=== PATIENT | male | born 1970 | race Caucasian/White ===

== ENCOUNTER 2017-05-12 11:47 | Emergency (ER) | payer MEDICAID ==
[2017-05-12 12:01] VITALS: BP 149/98
--- NOTE | 2017-05-12 12:51 | ED Physician Documentation ---
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 No particular fall nor injury. Awakening today,getting out of bed, felt onset of sharp left upper lumbar pain, worse with ROM and walking. At times the pain will be very sharp and cause "his legs to give out". No ongoing weakness nor numbness of legs but does feel that the pain from back goes to both anterior thighs at times. No incontinence.) Location: Lower, Left Quality: Pain, Spasm, Aching Associated symptoms: No: Fever, Weakness, Numbness, Incontinent of urine Improves with: Rest Worsened by: Movement, Twisting Contributing factors: Lifting (he had been doing lot of lifting the past few days, but no onset of pain at that time.) Similar symptoms before: No diagnosis (he has had back pains at times in similar area, but not as bad as the current pains.) Recently seen: Not recently seen Review of Systems Constitutional: denies: Fever, Chills Nose: denies: Rhinorrhea / runny nose, Congestion Throat: denies: Sore throat Cardiac: denies: Chest pain / pressure Respiratory: denies: Dyspnea, Cough GI: denies: Abdominal Pain, Nausea, Vomiting, Diarrhea : denies: Dysuria, Frequency, Incontinent Skin: denies: Rash, Lesions Musculoskeletal: denies: Extremity pain, Extremity swelling Neurologic: denies: Focal weakness, Numbness, Near syncope PD PAST MEDICAL HISTORY - Past Medical History Cardiovascular: None Respiratory: None Musculoskeletal: None - Past Surgical History Past Surgical History: No - Present Medications Home Medications: Ambulatory Orders Medication Instructions Recorded Confirmed oxyCODONE [Roxicodone] 5 mg PO Q4-6H #10 tablet 05/28/16 Methocarbamol [Robaxin] 500 mg PO Q6H PRN #25 tablet 05/12/17 Naproxen [Naprosyn] 500 mg PO BID #20 tablet 05/12/17 Oxycodone HCl/Acetaminophen 1 each PO Q6H PRN #20 tablet 05/12/17 [Percocet 5-325 mg Tablet] - Allergies Allergies/Adverse Reactions: Allergies Allergy/AdvReac Type Severity Reaction Status Date / Time No Known Drug Allergies Allergy Verified 05/28/16 10:52 - Social History Does the pt smoke?: Yes Smoking Status: Current every day smoker Does the pt drink ETOH?: Yes Does the pt have substance abuse?: Yes - Immunizations Immunizations: TDAP >10years/unknown - POLST Patient has POLST: No PD ED PE NORMAL - Vitals Vital signs reviewed: Yes - General General: Alert and oriented X 3, Well developed/nourished, Other (appears in pain with ROM of the back, guarded movement. Some smell of alchol on breath. ) - Neck Neck: Supple, no meningeal sign, No adenopathy - Cardiac Cardiac: RRR, No murmur - Respiratory Respiratory: Clear bilaterally - Abdomen Abdomen: Normal bowel sounds, Soft, Non tender, Non distended, No organomegaly - Male Male : Deferred - Rectal Rectal: Deferred - Back Back: No spinal TTP (but is tender in upper lumbar muscles to the left mostly, but some on right. No vertebral tenderness to percussion. ) - Derm Derm: Normal color, Warm and dry, No rash - Extremities Extremities: Normal ROM s pain, No edema, No calf tenderness / cord - Neuro Neuro: Alert and oriented X 3, No motor deficit, No sensory deficit, Normal speech, Other (2+ DTRs in both knees. ) - Psych Psych: No: Normal affect (somewhat loud and repetitive about his back pain "never had it this bad before".) Results - Vitals Vitals: Vital Signs - 24 hr 05/12/17 11:59 Temperature 36.6 C Heart Rate 102 H Respiratory 20 Rate Blood Pressure 149/98 H O2 Saturation 98 Oxygen O2 Source Room air - Labs Labs: Laboratory Tests 05/12/17 13:35 Urine Color YELLOW Urine Clarity CLEAR Urine pH 5.5 Ur Specific [place] 1.025 Urine Protein NEGATIVE Urine Glucose (UA) NEGATIVE Urine Ketones 15 H Urine Occult Blood NEGATIVE Urine Nitrite NEGATIVE Urine Bilirubin NEGATIVE Urine Urobilinogen 0.2 (NORMAL) Ur Leukocyte Esterase NEGATIVE Ur Microscopic Review NOT INDICATED Urine Culture Comments NOT INDICATED - Rads (name of study) KUB CT Radiology: Prelim report reviewed, EMP read contemporaneously (no stones; no acute process seen. ) PD MEDICAL DECISION MAKING - ED course Complexity details: re-evaluated patient (pain lessened only moderately with meds, but is able to move more easily and bend. ), considered differential ( history was somewhat histrionic perhaps due to intoxication, which made it a bit more difficult to really assess. He did not have fever, no skin sores, no leg weakness/numbness nor incontinence. I still felt prudent to get CT back, to distinguish from kidney stone, divertic, compression injury, etc. CT looked okay. Will go with myofascial back pain or perhaps some component of nerve impingement. He got only moderate improvement with IM/PO meds, but is moving more supple at discharge. ), d/w patient Departure - Departure Disposition: 01 Home, Self Care Clinical Impression: Strain of muscle, fascia and tendon of lower back, initial encounter Lower back pain Qualifiers: Chronicity: acute Back pain laterality: bilateral Sciatica presence: without sciatica Qualified Code(s): M54.5 - Low back pain Condition: Stable Record reviewed to determine appropriate education?: Yes Instructions: ED Low Back Pain Injury Follow-Up: Mila Macdonald, [facility] [Primary Care Provider] - Prescriptions: Naproxen [Naprosyn] 500 mg PO BID #20 tablet Oxycodone HCl/Acetaminophen [Percocet 5-325 mg Tablet] 1 each PO Q6H PRN #20 tablet PRN Reason: Pain Methocarbamol [Robaxin] 500 mg PO Q6H PRN #25 tablet PRN Reason: Spasms Comments: The CT scan does not show an other obvious cause for the pain. Presume then muscular pain with spasming and perhaps some nerve impingement. Use naproxen twice daily for the next 7-10 days. Heat and gentle stretching for the back. Methocarbamol muscle relaxant several times a day to reduce spasms. Use Tylenol or oxycodone as needed for worse pain. Recheck if not improving over the next couple of days. This could potentially take a week or so to fully improve though. Discharge Date/Time: 05/12/17 15:35
[2017-05-12] MEDS ORDERED: KETOROLAC 60 MG/2 ML VIAL IM STA (13:03)
[2017-05-12] MEDS ORDERED: HYDROcod/ACETAM 5/325 MG TABLET PO STA (13:04)
[2017-05-12] MEDS ORDERED: METHOCARBAMOL 500 MG TABLET PO STA (13:04)
[2017-05-12] MEDS ORDERED: ACETAMINOPHEN 325 MG TABLET PO STA (13:04)
[2017-05-12] MEDS ORDERED: KETOROLAC 60 MG/2 ML VIAL ONE (13:17)
[2017-05-12] MEDS ORDERED: ACETAMINOPHEN 325 MG TABLET PO ONE (13:17)
[2017-05-12] MEDS ORDERED: HYDROcod/ACETAM 5/325 MG TABLET ONE (13:17)
[2017-05-12] MEDS ORDERED: METHOCARBAMOL 500 MG TABLET PO ONE (13:17)
[2017-05-12] MEDS ORDERED: HYDROmorphone 1 MG/ML SYRINGE IM STA (13:43)
[2017-05-12 13:45] LABS: BILIRUBIN,URINE NEGATIVE (NEGATIVE); PH,URINE 5.5 PH (5.0-7.5)
[2017-05-12 13:50] LABS: UA CHARGE (STRIP ONLY) YES; UR CULTURE IF IND NOT INDICATED
[2017-05-12] MEDS ORDERED: HYDROmorphone 1 MG/ML SYRINGE ONE (14:09)
--- NOTE | 2017-05-12 15:06 | CT Preliminary Report ---
Exam: CT KUB IMPRESSION: 1. Left nephrolithiasis. 2. Moderate paraesophageal hernia. 3. Colonic diverticulosis. 4. Suspect recently passed left-sided ureteral stone given the mild left periureteral and perirenal e ti. If this patient's signs and symptoms do not lillian, then follow-up renal ultrasound is recommend ed to confirm no obstructive uropathy. [facility] SITE ID: [id number]
--- NOTE | 2017-05-12 15:13 | CT Report ---
EXAM: CT ABDOMEN AND PELVIS EXAM DATE: 05/12/2017 02:12 PM. CLINICAL HISTORY: Flank pain today, left more than right. COMPARISONS: CT abdomen and pelvis 05/28/2016. TECHNIQUE: Routine helical CT imaging was performed through the abdomen and pelvis. IV contrast: None . Enteric contrast: None. Reconstructions: Coronal and sagittal. In accordance with CT protocol optimization, one or more of the following dose reduction techniques w ere utilized for this exam: automated exposure control, adjustment of mA and/or KV based on patient s ize, or use of iterative reconstructive technique. FINDINGS: Lung Bases: Stable moderate paraesophageal hernia. Liver: Normal. No masses. Gallbladder/Bile Ducts: Unremarkable. Spleen: Normal. Pancreas: Normal. Adrenal Glands: Normal. Kidneys: Right kidney and right ureter normal. Interval enlargement of the two stones in the inferior left caliceal systems, one measuring 6 mm and the other measuring 5 mm, previously 5 and 3 mm, respectively. No left hydronephrosis. However, there is mild left perirenal and perinephric edema. Left ureter is tiny with a small amount of periuretera l edema. No calcified stones are seen in the left ureter. Peritoneal Cavity/Bowel: Diverticuli off the colon. No free fluid, free air or adenopathy. No masses or acute inflammatory process. The appendix is well visualized and normal. Pelvic Organs: Normal. No stones in the urinary bladder. The bladder and visualized pelvic organs are within normal limits. Vasculature: No aneurysms or other significant abnormality. Bones: No significant abnormality. Other: None. IMPRESSION: 1. Left nephrolithiasis. 2. Moderate paraesophageal hernia. 3. Colonic diverticulosis. 4. Suspect recently passed left-sided ureteral stone, given the mild left periureteral and perirenal edema. If this patient's signs and symptoms do not lillian, then follow-up renal ultrasound is recommen ded to confirm no obstructive uropathy. [facility] Referring Provider Line: [phone] SITE ID: [id number]
== END 2017-05-12 15:35 | disposition home or self-care (01) ==
LOC: ED 11:47
DX: S39.012A Strain of muscle, fascia and tendon of lower back, initial encounter (principal); X58.XXXA Exposure to other specified factors, initial encounter; Y93.89 Activity, other specified; F17.200 Nicotine dependence, unspecified, uncomplicated
CPT/HCPCS: 74176; 81003; 96372; 99283; 99284; A9270; J1170; 81001; 87086

== ENCOUNTER 2017-06-25 10:54 | Emergency (ER) | payer MEDICAID ==
--- NOTE | 2017-06-25 11:26 | ED Physician Documentation ---
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 He says he has back pain often but it has been worse the past few days and hurting a lot today, with stiffness and spasms. He says his legs give out at times with sharp pains, but does not have consistent nubmenss nor weakness.) Where injury occurred: Home Timing - onset: How many days ago (few) Timing - duration: Days (few) Timing - details: Gradual onset, Still present Quality: Pain, Spasm, Aching Similar symptoms before: Diagnosis (low back strain end April with treatment through the ED. He says it improved after days/week but still had pain at times , limiting the amount of log splitting he had been able to do the past 1-2 months.) Recently seen: Emergency Dept (end of April, for similar symptoms.) Review of Systems Constitutional: denies: Fever, Chills Nose: denies: Rhinorrhea / runny nose, Congestion Throat: denies: Sore throat Respiratory: denies: Cough GI: denies: Abdominal Pain, Nausea, Vomiting, Constipation, Diarrhea : denies: Dysuria, Frequency, Incontinent, Hematuria Skin: denies: Rash, Lesions Neurologic: denies: Focal weakness, Numbness PD PAST MEDICAL HISTORY - Past Medical History Past Medical History: No Cardiovascular: None Respiratory: None Musculoskeletal: None, Other (intermittent low back pain. ) - Past Surgical History Past Surgical History: Yes - Present Medications Home Medications: Ambulatory Orders Medication Instructions Recorded Confirmed Dexamethasone [Decadron] 4 mg PO DAILY #5 tablet 06/25/17 Methocarbamol [Robaxin] 500 mg PO Q6H PRN #30 tablet 06/25/17 Naproxen [Naprosyn] 500 mg PO BID PRN #20 tablet 06/25/17 Oxycodone HCl/Acetaminophen 1 each PO Q6H PRN #25 tablet 06/25/17 [Percocet 5-325 mg Tablet] - Allergies Allergies/Adverse Reactions: Allergies Allergy/AdvReac Type Severity Reaction Status Date / Time No Known Drug Allergies Allergy Verified 06/25/17 11:01 - Social History Does the pt smoke?: Yes Smoking Status: Current every day smoker Does the pt drink ETOH?: Yes Does the pt have substance abuse?: Yes - Immunizations Immunizations are current?: No Immunizations: TDAP >10years/unknown - POLST Patient has POLST: No PD ED PE NORMAL - Vitals Vital signs reviewed: Yes - General General: Alert and oriented X 3, No acute distress, Well developed/nourished - HEENT HEENT: Pharynx benign - Neck Neck: Supple, no meningeal sign, No adenopathy - Cardiac Cardiac: RRR, No murmur - Respiratory Respiratory: Clear bilaterally - Abdomen Abdomen: Normal bowel sounds, Soft, Non tender, Non distended - Back Back: No CVA TTP, Other (tender in bilateral paralumbar muscles, without rash/ sores, and no spinal tenderness. ) - Derm Derm: Normal color, Warm and dry, No rash - Extremities Extremities: No tenderness to palpate, Normal ROM s pain - Neuro Neuro: Alert and oriented X 3 (smell of alcohol on breath and seems emotional easily and very talkative but repeats questions often, seems intoxicated. ), No motor deficit, No sensory deficit, Other (2+DTRs at knees. ) Results - Vitals Vitals: Vital Signs - 24 hr 06/25/17 10:57 Temperature 36.8 C Heart Rate 115 H Respiratory 16 Rate Blood Pressure 161/111 H O2 Saturation 95 Oxygen O2 Source Room air - Labs Labs: Laboratory Tests 06/25/17 11:20 Urine Color YELLOW Urine Clarity CLEAR Urine pH 6.0 Ur Specific [place] <=1.005 Urine Protein NEGATIVE Urine Glucose (UA) NEGATIVE Urine Ketones NEGATIVE Urine Occult Blood NEGATIVE Urine Nitrite NEGATIVE Urine Bilirubin NEGATIVE Urine Urobilinogen 0.2 (NORMAL) Ur Leukocyte Esterase NEGATIVE Ur Microscopic Review NOT INDICATED Urine Culture Comments NOT INDICATED PD MEDICAL DECISION MAKING - ED course Complexity details: reviewed old records, re-evaluated patient (lessened pain after meds. Similar treatment to April 2017. Can try adding PT, but he does not have PCP. Also suggest chiropractic but he will need to see if his insurance covers it. ), considered differential, d/w patient Departure - Departure Disposition: Home, Self Care Condition: Stable Record reviewed to determine appropriate education?: Yes Instructions: ED Low Back Pain Injury Follow-Up: [facility] [Provider Group] [facility] [Provider Group] Prescriptions: Dexamethasone [Decadron] 4 mg PO DAILY #5 tablet Naproxen [Naprosyn] 500 mg PO BID PRN #20 tablet PRN Reason: Pain Oxycodone HCl/Acetaminophen [Percocet 5-325 mg Tablet] 1 each PO Q6H PRN #25 tablet PRN Reason: Pain Methocarbamol [Robaxin] 500 mg PO Q6H PRN #30 tablet PRN Reason: Spasms Comments: I would suggest anti-inflammatories naproxen and dexamethasone as prescribed. Add methocarbamol muscle relaxant to help reduce spasming and stiffness. To that add oxycodone if needed for pain. I would suggest physical treatment such as physical therapy or chiropractic. I wrote a prescription for physical therapy but sometimes they want it to be directed from her primary care provider rather than the ER. He can try the physical therapy places and see if they accepted. Otherwise chiropractic would be very helpful as well and you have to contact them independently and see if they accept her insurance. Heat and gentle stretching is good for the back as well. Try to avoid heavy lifting and vigorous use for 5-6 days. At least one of your blood pressure readings in the ER today was elevated above the normal level. If you have diagnosed high blood pressure in the past, please be sure you are taking your BP medications and eating low salt diet. If you do not have know high BP, then being high today does not mean it is a correction issue. It might be reactively high to the situation that has you here. You should follow up with your primary care to have the blood pressure checked again in the next few days/week or so to see if it is persistently high. If so, then you may need medication or changes in diet/lifestyle to treat it.
[2017-06-25 11:35] LABS: BILIRUBIN,URINE NEGATIVE (NEGATIVE)
[2017-06-25 11:37] LABS: UA CHARGE (STRIP ONLY) YES; UR CULTURE IF IND NOT INDICATED
[2017-06-25] MEDS ORDERED: METHOCARBAMOL 500 MG TABLET PO ONE (11:39)
[2017-06-25] MEDS ORDERED: NAPROXEN 250 MG TABLET PO ONE (11:40)
[2017-06-25] MEDS ORDERED: traMADol 50 MG TABLET PO ONE (11:41)
[2017-06-25] MEDS ORDERED: DEXAMETHASONE 10 MG/ML VIAL ONE ×2 (11:41→12:24)
[2017-06-25] MEDS ORDERED: HYDROmorphone 1 MG/ML CARPUJECT IM STA (12:10)
[2017-06-25] MEDS ORDERED: KETOROLAC 60 MG/2 ML VIAL IM STA (12:10)
[2017-06-25] MEDS ORDERED: DEXAMETHASONE 10 MG/ML VIAL PO STA (12:11)
[2017-06-25] MEDS ORDERED: HYDROmorphone 1 MG/ML CARPUJECT ONE (12:19)
[2017-06-25] MEDS ORDERED: KETOROLAC 60 MG/2 ML VIAL ONE (12:19)
[2017-06-25] MEDS ORDERED: CHERRY SYRUP 10 ML UDC PO ONE (12:24)
[2017-06-25 12:52] VITALS: BP 149/106
== END 2017-06-25 12:52 | disposition home or self-care (01) ==
LOC: ED 10:54
DX: M54.5 Low back pain (principal); F17.200 Nicotine dependence, unspecified, uncomplicated; R03.0 Elevated blood-pressure reading, without diagnosis of hypertension
CPT/HCPCS: 81003; 96372; 99283; A9270; J1170; 81001; 87086

== ENCOUNTER 2017-09-02 11:59 | Emergency (ER) | payer MEDICAID ==
[2017-09-02] MEDS ORDERED: TETANUS/DIPHTHERIA/PERTUSSIS 0.5 ML SYRINGE IM ONE ×2 (14:33→14:42)
--- NOTE | 2017-09-02 14:35 | ED Physician Documentation ---
PD HPI ANIMAL BITE - Stated complaint Stated Complaint: DOG BITE - Chief complaint Chief Complaint: Wound - History obtained from History obtained from: Patient - History of Present Illness Location of injury(ies): LLE Details of the event: Dog, Pet animal, Immunized, Animal can be observed. No: Animal control notified Timing - onset: How many days ago (2) Timing - duration: Days (2) Timing - details: Abrupt onset, Still present Improved by: Rest, Immobilization Worsened by: Moving, Palpating Associated symptoms: Discolored Contributing factors: No: Immunocompromised Similar symptoms before: Has not had sx before Recently seen: Not recently seen - Additional information Additional information: 46-year-old homeless male was bitten by a pit bull who is a pet of another homeless friend of his. This happened 2 days ago and the patient has extensive bruising to the area and pain. He is worried about infection and pain control. He is reluctant to call animal control. Review of Systems Constitutional: denies: Fever Respiratory: denies: Cough GI: denies: Vomiting Skin: denies: Rash Musculoskeletal: reports: Extremity pain. denies: Neck pain, Back pain Neurologic: denies: Generalized weakness, Focal weakness, Numbness PD PAST MEDICAL HISTORY - Past Medical History Past Medical History: No Cardiovascular: None Respiratory: None Musculoskeletal: None, Other - Past Surgical History Past Surgical History: Yes - Present Medications Home Medications: Ambulatory Orders Medication Instructions Recorded Confirmed Amox/Clav 875/125 [Augmentin] 1 each PO Q12H #10 tablet 09/02/17 HYDROcod/ACETAM 5/325 [[place] 5/325] 1 - 2 ea PO Q6H PRN #10 tablet 09/02/17 - Allergies Allergies/Adverse Reactions: Allergies Allergy/AdvReac Type Severity Reaction Status Date / Time No Known Drug Allergies Allergy Verified 09/02/17 12:14 - Social History Does the pt smoke?: Yes Smoking Status: Current every day smoker Does the pt drink ETOH?: Yes Does the pt have substance abuse?: Yes - Immunizations Immunizations are current?: No Immunizations: TDAP >10years/unknown - POLST Patient has POLST: No PD ED PE NORMAL - Vitals Vital signs reviewed: Yes (Hypertensive) - General General: No acute distress, Well developed/nourished - HEENT HEENT: Atraumatic, PERRL, EOMI - Respiratory Respiratory: No respiratory distress - Derm Derm: Normal color, Warm and dry - Extremities Extremities: No deformity, Other (There is an extensive area on the medial aspect of the left thigh with ecchymosis extending around a central area of puncture wound and abrasion. The area does appear consistent with a bite by a dog. There is extensive ecchymosis associated with this and it does appear to be colored to the date.) - Neuro Neuro: No motor deficit, No sensory deficit Eye Opening: Spontaneous Motor: Obeys Commands Verbal: Oriented GCS Score: 15 - Psych Psych: Normal mood, Normal affect Results - Vitals Vitals: Vital Signs - 24 hr 09/02/17 12:09 Temperature 36.6 C Heart Rate 100 Respiratory 20 Rate Blood Pressure 132/95 H O2 Saturation 96 Oxygen O2 Source Room air PD MEDICAL DECISION MAKING - ED course Complexity details: considered differential, d/w patient ED course: 46-year-old male with a dog bite to the left thigh has extensive ecchymosis from this he does not appear to have acute infection. There is some erythema surrounding the puncture wound and abrasion consistent with a three-day old wound. Here in the emergency department he is given a tetanus booster and we will put him on a short course of prophylactic antibiotic. Departure - Departure Disposition: 01 Home, Self Care Clinical Impression: Dog bite of extremity Condition: Stable Instructions: ED Bite Animal General Follow-Up: [facility] [Provider Group] Prescriptions: Amox/Clav 875/125 [Augmentin] 1 each PO Q12H #10 tablet HYDROcod/ACETAM 5/325 [[place] 5/325] 1 - 2 ea PO Q6H PRN #10 tablet PRN Reason: Pain Comments: Today in the Emergency Department your blood pressure was elevated. This can happen from the stress of the visit itself, from a current illness or circumstance or from uncontrolled hypertension. If you take blood pressure medications take your usual mediations, have your blood pressure re-checked in an appropriate setting and follow up any elevation with your primary care doctor.
[2017-09-02 15:21] VITALS: BP 122/91
== END 2017-09-02 15:15 | disposition home or self-care (01) ==
LOC: ED 11:59
DX: S71.132A Puncture wound without foreign body, left thigh, initial encounter (principal); W54.0XXA Bitten by dog, initial encounter; Z23 Encounter for immunization; R03.0 Elevated blood-pressure reading, without diagnosis of hypertension; Z59.0 Homelessness; F17.200 Nicotine dependence, unspecified, uncomplicated
CPT/HCPCS: 90471; 99283

== ENCOUNTER 2017-11-05 14:14 | Emergency (ER) | payer MEDICAID ==
[2017-11-05] MEDS ORDERED: HYDROmorphone 1 MG/ML SYRINGE IVP STA (15:13)
[2017-11-05] MEDS ORDERED: ONDANSETRON 4 MG/2 ML VIAL IVP STA (15:13)
[2017-11-05 15:15] LABS: BILIRUBIN,URINE NEGATIVE (NEGATIVE); GLUCOSE, URINE (UA) NEGATIVE (NEGATIVE); KETONES,URINE (UA) NEGATIVE (NEGATIVE); LEUKOCYTE ESTERASE, URINE NEGATIVE (NEGATIVE); NITRITE,URINE NEGATIVE (NEGATIVE); OCCULT BLOOD,URINE NEGATIVE (NEGATIVE); PH,URINE 5.5 PH (5.0-7.5); PROTEIN,URINE NEGATIVE (NEGATIVE); UROBILINOGEN,URINE 0.2 (NORMAL) E.U./dL (NORMAL)
--- NOTE | 2017-11-05 15:15 | ED Physician Documentation ---
PD HPI ABD PAIN - Stated complaint Stated Complaint: ABD PX - Chief complaint Chief Complaint: Abd Pain - History obtained from History obtained from: Patient - History of Present Illness Timing - onset: Other (He has a history of alcoholism but quit about 2 weeks ago. He also has a history of pancreatitis. He developed sudden onset upper abdominal pain today. He has not had a bowel movement today which is atypical. No history of abdominal surgeries. Pain is severe and nonradiating. No fevers or nausea.) Review of Systems Ten Systems: 10 systems reviewed and negative Constitutional: denies: Fever, Chills Cardiac: denies: Chest pain / pressure, Palpitations Respiratory: denies: Dyspnea, Cough PD PAST MEDICAL HISTORY - Past Medical History Past Medical History: Yes Cardiovascular: None Respiratory: None Musculoskeletal: None, Other - Past Surgical History Past Surgical History: Yes - Present Medications Home Medications: Ambulatory Orders Medication Instructions Recorded Confirmed HYDROcod/ACETAM 5/325 [[place] 5/325] 1 - 2 ea PO Q6H PRN #15 tablet 11/05/17 Omeprazole [PriLOSEC] 20 mg PO DAILY #14 capsule 11/05/17 - Allergies Allergies/Adverse Reactions: Allergies Allergy/AdvReac Type Severity Reaction Status Date / Time No Known Drug Allergies Allergy Verified 09/02/17 12:14 - Social History Does the pt smoke?: Yes Smoking Status: Current every day smoker Does the pt drink ETOH?: Yes Does the pt have substance abuse?: Yes - Family History Family history: reports: Non contributory - Immunizations Immunizations are current?: No Immunizations: TDAP >10years/unknown - POLST Patient has POLST: No PD ED PE NORMAL - Vitals Vital signs reviewed: Yes - General General: Alert and oriented X 3, Other (Clutching his abdomen and appears uncomfortable) - HEENT HEENT: PERRL, EOMI - Neck Neck: Supple, no meningeal sign, No bony TTP - Cardiac Cardiac: RRR, No murmur - Respiratory Respiratory: No respiratory distress, Clear bilaterally - Abdomen Abdomen: Other (Quite tender in the right upper quadrant with positive Rios sign, no lower abdominal tenderness.) - Back Back: No CVA TTP, No spinal TTP - Derm Derm: Normal color, Warm and dry - Extremities Extremities: No edema, No calf tenderness / cord - Neuro Neuro: Alert and oriented X 3, Normal speech - Psych Psych: Normal mood, Normal affect Results - Vitals Vitals: Vital Signs - 24 hr 11/05/17 14:38 Temperature 36.7 C Heart Rate 109 H Respiratory 18 Rate Blood Pressure 147/79 H O2 Saturation 99 Oxygen O2 Source Room air - Labs Labs: Laboratory Tests 11/05/17 11/05/17 11/05/17 15:01 15:01 15:10 WBC 21.5 H RBC 4.74 Hgb 15.4 Hct 46.2 MCV 97.5 H MCH 32.5 H MCHC 33.4 RDW 13.3 Plt Count 357 MPV 7.7 Neut # 20.1 H Lymph # 0.5 L Pepin # 0.8 Eos # 0.0 Baso # 0.1 Absolute Nucleated RBC 0.02 Nucleated RBC % 0.1 Manual Slide Review Indicated WBC Morphology A Platelet Estimate NORMAL (130-450,000) Platelet Morphology NORMAL APPEARANCE RBC Morph Micro Appear NORMAL APPEARANCE Sodium 135 Potassium 4.0 Chloride 106 Carbon Dioxide 20 L Anion Gap 9.0 BUN 13 Creatinine 0.7 Estimated GFR (MDRD) 121 Glucose 131 H Calcium 9.3 Total Bilirubin 0.7 AST 28 ALT 30 Alkaline Phosphatase 54 Total Protein 8.0 Albumin 4.7 Globulin 3.3 Albumin/Globulin Ratio 1.4 Lipase 20 L Urine Color YELLOW Urine Clarity CLEAR Urine pH 5.5 Ur Specific [place] >=1.030 H Urine Protein NEGATIVE Urine Glucose (UA) NEGATIVE Urine Ketones NEGATIVE Urine Occult Blood NEGATIVE Urine Nitrite NEGATIVE Urine Bilirubin NEGATIVE Urine Urobilinogen 0.2 (NORMAL) Ur Leukocyte Esterase NEGATIVE Ur Microscopic Review NOT INDICATED Urine Culture Comments NOT INDICATED - Rads (name of study) RUQ sono Radiology: EMP read contemporaneously (No obvious abnormality but with limitation due to bowel gas) CT abdomen and pelvis Radiology: EMP read contemporaneously (Nonobstructing left renal stones, diverticulosis, trace pelvic fluid, hiatal hernia) PD MEDICAL DECISION MAKING - ED course ED course: He presents with acute acute upper abdominal pain that seemed biliary in origin on exam. His ultrasound was nondiagnostic, this was followed by CT especially considering his leukocytosis. The CT was grossly negative. He was administered a GI cocktail with excellent relief of his pain. So this suggests gastritis. Departure - Departure Disposition: 01 Home, Self Care Clinical Impression: Gastritis Qualifiers: Gastritis type: unspecified gastritis Chronicity: acute Gastritis bleeding: without bleeding Qualified Code(s): K29.00 - Acute gastritis without bleeding Condition: Good Record reviewed to determine appropriate education?: Yes Instructions: ED PUD Vs Gastritis Prescriptions: HYDROcod/ACETAM 5/325 [[place] 5/325] 1 - 2 ea PO Q6H PRN #15 tablet PRN Reason: Pain Omeprazole [PriLOSEC] 20 mg PO DAILY #14 capsule Comments: Return tomorrow morning at 5am if not better. Followup with your doctor, next available appt. Your blood pressure was elevated today on check into the emergency department. This does not mean that you have hypertension, it is a common phenomenon to come to the emergency department and have elevated blood pressure. I recommend that you see your primary care physician within the week to have it rechecked when you are feeling better.
[2017-11-05 15:18] LABS: CLARITY,URINE CLEAR (CLEAR)
[2017-11-05 15:30] LABS: BASOPHILS # (AUTO) 0.1 10^3/uL (0.0-0.1); BASOPHILS % (AUTO) 0.3 %; EOSINOPHILS % (AUTO) 0.2 %; HGB - HEMOGLOBIN 15.4 g/dL (14.0-18.0); LYMPHOCYTES # (AUTO) 0.5 10^3/uL (1.5-3.5); LYMPHOCYTES % (AUTO) 2.4 %; MEAN CORPUSCULAR HEMOGLOBIN 32.5 pg (27.0-31.0); MEAN CORPUSCULAR HGB CONC 33.4 g/dL (32.0-36.0); MEAN CORPUSCULAR VOLUME 97.5 fL (80.0-94.0); MEAN PLATELET VOLUME 7.7 fL (7.4-11.4); MONOCYTES # (AUTO) 0.8 10^3/uL (0.0-1.0); MONOCYTES % (AUTO) 3.7 %; NEUTROPHILS # (AUTO) 20.1 10^3/uL (1.5-6.6); NEUTROPHILS % (AUTO) 93.4 %; PLT - PLATELET COUNT 357 10^3/uL (130-450); RED BLOOD COUNT 4.74 10^6/uL (4.70-6.10); RED CELL DISTRIBUTION WIDTH 13.3 % (12.0-15.0); WHITE BLOOD COUNT 21.5 x10^3/uL (4.8-10.8)
[2017-11-05 15:32] LABS: ALBUMIN 4.7 g/dL (3.2-5.5); ALBUMIN/GLOBULIN RATIO 1.4 (1.0-2.2); BILIRUBIN,TOTAL 0.7 mg/dL (0.2-1.0); CALCIUM 9.3 mg/dL (8.5-10.3); CREATININE 0.7 mg/dL (0.6-1.2)
[2017-11-05 16:42] LABS: PLATELET ESTIMATE, MANUAL NORMAL (130-450,000) (NORMAL); PLATELET MORPHOLOGY NORMAL APPEARANCE (NORMAL); RBC MORPHOLOGY (MULTIPLE) NORMAL APPEARANCE (NORMAL)
--- NOTE | 2017-11-05 16:43 | Ultrasound Preliminary Report ---
Exam: US ABDOMEN LIMITED IMPRESSION: 1. No cholelithiasis or cholecystitis. No acute findings are seen. Limited as above. [facility] SITE ID: [id number]
--- NOTE | 2017-11-05 16:43 | Ultrasound Report ---
EXAM: ABDOMEN ULTRASOUND LIMITED, RUQ EXAM DATE: 11/05/2017 03:37 PM. CLINICAL HISTORY: Right upper quadrant pain. Alcohol. COMPARISON: None. TECHNIQUE: Real-time scanning was performed with static images obtained. FINDINGS: Liver: Liver echotexture appears within normal limits. 18.5 cm. Main portal vein flow: Hepatopetal. Gallbladder: Normal. No stones, or wall thickening. No pericholecystic fluid. Wall thickness measures 2.6 mm. The gallbladder is tender. Biliary System: Common duct measures 4.6 mm. No intrahepatic or extrahepatic ductal dilatation. Other: Right kidney measures 12.5 cm in length, no hydronephrosis. Patient is in extreme pain. Hyperventilated through entire exam, unable to hold inspirations. No tole hernan of probe pressure midline. Pancreas not seen due to overlying bowel gas. IMPRESSION: 1. No cholelithiasis or cholecystitis. No acute findings are seen. Limited as above. [facility] Referring Provider Line: [phone] SITE ID: [id number]
[2017-11-05] MEDS ORDERED: IOPAMIDOL-300 100 ML VIAL ONE (16:51)
[2017-11-05] MEDS ORDERED: IOPAMIDOL-300 100 ML VIAL IVP ONE (17:02)
--- NOTE | 2017-11-05 17:35 | CT Report ---
EXAM: CT ABDOMEN AND PELVIS EXAM DATE: 11/05/2017 05:04 PM. CLINICAL HISTORY: Upper abdominal pain COMPARISONS: 05/12/2017 CT. TECHNIQUE: Routine helical CT imaging was performed through the abdomen and pelvis. IV contrast: 100M L ISOVUE 300. Enteric contrast: No. Reconstructions: Coronal and sagittal. In accordance with CT protocol optimization, one or more of the following dose reduction techniques w ere utilized for this exam: automated exposure control, adjustment of mA and/or KV based on patient s ize, or use of iterative reconstructive technique. FINDINGS: Lung Bases: The visualized lung bases are clear. There is a moderate hiatal hernia. Liver: Normal. No masses. Gallbladder/Bile Ducts: Unremarkable. Spleen: Normal. Pancreas: Normal. Adrenal Glands: Normal. Kidneys: 5 and 3 mm nonobstructing calyceal stones at the lower pole of the left kidney. The right ki dney is normal. Peritoneal Cavity/Bowel: Normal. No free fluid, free air or adenopathy. No masses or acute inflammato ry process. Diverticulosis without diverticulitis. Pelvic Organs: Trace pelvic fluid. No pelvic mass or lymphadenopathy. Urinary bladder is unremarkable . Vasculature: No aneurysms or other significant abnormality. Bones: No significant abnormality. Other: None. IMPRESSION: 1. Nonobstructing left intrarenal stones. 2. Diverticulosis without diverticulitis or other acute inflammatory process. 3. Trace pelvic fluid the clinical significance and etiology of which is uncertain. 4. Hiatal hernia. [facility] Referring Provider Line: [phone] SITE ID: [id number]
[2017-11-05] MEDS ORDERED: LIDOCAINE VISCOUS 2% 15 ML UDC MM STA (17:47)
[2017-11-05] MEDS ORDERED: MAG HYDROX/AL HYDROX/SIMETH 30 ML UDC PO STA (17:47)
[2017-11-05] MEDS ORDERED: PANTOPRAZOLE 40 MG VIAL IVP STA (18:12)
[2017-11-05 18:51] VITALS: BP 121/87
== END 2017-11-05 18:54 | disposition home or self-care (01) ==
LOC: ED 14:14
DX: K29.00 Acute gastritis without bleeding (principal); N20.0 Calculus of kidney; K44.9 Diaphragmatic hernia without obstruction or gangrene; R03.0 Elevated blood-pressure reading, without diagnosis of hypertension; F17.200 Nicotine dependence, unspecified, uncomplicated; F10.21 Alcohol dependence, in remission
CPT/HCPCS: 36415; 74177; 76705; 80053; 81003; 83690; 85025; 96374; 96375; 99283; A9270; J1170; Q9967; 81001; 87086

== ENCOUNTER 2017-12-29 14:21 | Outpatient (CLI) | payer MEDICAID ==
--- NOTE | 2017-12-30 09:44 | XRAY Report ---
LUMBAR SPINE: 12/29/2017 COMPARISON: No comparison. INDICATION: Low back pain. TECHNIQUE: Three views. FINDINGS: Normal alignment. No evidence of acute fracture. No degenerative changes. IMPRESSION: NEGATIVE LUMBAR SPINE. TD: 12/30/2017 09:44 WHITLEY
== END 2017-12-29 14:22 | disposition home or self-care (01) ==
LOC: DI.N 14:21
PROVIDERS: ATTEND Nurse Practitioner
DX: M54.40 Lumbago with sciatica, unspecified side (principal)
CPT/HCPCS: 72100

== ENCOUNTER 2018-02-03 07:40 | Outpatient (CLI) | payer MEDICAID ==
--- NOTE | 2018-02-03 13:39 | MRI Report ---
EXAM: MRI LUMBAR SPINE WITHOUT CONTRAST EXAM DATE: 02/03/2018 08:11 AM. CLINICAL HISTORY: Lower back pain. COMPARISON: Radiographs 12/29/2017. TECHNIQUE: Multiplanar, multisequence T1-weighted and fluid-sensitive sequences of the lumbar spine f rom T12 to S1 without contrast. Other: None. FINDINGS: Spinal Cord: The conus terminates at L2. The conus medullaris and cauda equina are unremarkable. Alignment: No scoliosis or spondylolisthesis. Bone Marrow: Small amount of diskogenic endplate edema at L5-S1. Marrow signal otherwise within pretty l limits. No fractures are identified. No destructive Lesions. Disk Levels/Facets: T12-L1: Minimal disk bulge. No stenosis. L1-L2: Unremarkable. L2-L3: Mild disk dehydration. Annular disk bulge and mild degenerative facet arthropathy. Small broad -based foraminal protrusions without significant stenosis. L3-L4: Mild disk dehydration. Annular disk bulge. Mild degenerative facet arthropathy. Mild effacemen t of the thecal sac. Mild right foraminal stenosis. L4-L5: Disk dehydration. Annular disk bulge and moderate degenerative facet arthropathy with ligament um flavum buckling. Mild effacement of thecal sac. Mild right greater than left foraminal narrowing. L5-S1: Disk height loss and dehydration. Annular disk bulge, annular fissure and mild to moderate deg enerative facet arthropathy. Moderate right greater than left foraminal stenosis. Musculature: Normal. No edema or fatty atrophy. Other: The partially visualized retroperitoneum is unremarkable. IMPRESSION: 1. L5-S1 moderate right greater than left foraminal stenosis. 2. L4-L5 mild right greater than left foraminal narrowing. 3. L3-L4 mild right foraminal stenosis. Comment: The following findings are so common in adults without low back pain that while we report th eir presence, they must be interpreted with caution and in the context of the clinical situation. (Re riri Christianson et al, Spine 2001) Prevalence of findings in patients without low back pain: Disk degeneration (any evidence): 92% Disk desiccation/T2 signal loss: 83% Disk height loss: 56% Disk bulge: 64% Disk protrusion: 32% Annular tear/high intensity zone: 38% [facility] Referring Provider Line: [phone] SITE ID: [id number]
== END 2018-02-03 07:41 | disposition home or self-care (01) ==
LOC: DI 07:40
PROVIDERS: ATTEND Nurse Practitioner Gerontology
DX: M51.36 Other intervertebral disc degeneration, lumbar region (principal); M47.896 Other spondylosis, lumbar region; M51.37 Other intervertebral disc degeneration, lumbosacral region; M47.897 Other spondylosis, lumbosacral region
CPT/HCPCS: 72148

== ENCOUNTER 2018-11-02 08:45 | Outpatient (CLI) | payer MEDICAID ==
[2018-11-02 12:42] LABS: BASOPHILS # (AUTO) 0.1 10^3/uL (0.0-0.1); BASOPHILS % (AUTO) 1.6 %; EOSINOPHILS # (AUTO) 0.3 10^3/uL (0.0-0.7); EOSINOPHILS % (AUTO) 5.6 %; HGB - HEMOGLOBIN 15.5 g/dL (14.0-18.0); MEAN CORPUSCULAR HEMOGLOBIN 33.2 pg (27.0-31.0); MEAN CORPUSCULAR HGB CONC 34.7 g/dL (32.0-36.0); MEAN CORPUSCULAR VOLUME 95.7 fL (80.0-94.0); MEAN PLATELET VOLUME 8.4 fL (7.4-11.4); MONOCYTES # (AUTO) 0.5 10^3/uL (0.0-1.0); MONOCYTES % (AUTO) 9.4 %; NEUTROPHILS # (AUTO) 3.8 10^3/uL (1.5-6.6); NEUTROPHILS % (AUTO) 65.4 %; PLT - PLATELET COUNT 277 10^3/uL (130-450); RED BLOOD COUNT 4.68 10^6/uL (4.70-6.10); RED CELL DISTRIBUTION WIDTH 13.1 % (12.0-15.0); WHITE BLOOD COUNT 5.8 x10^3/uL (4.8-10.8)
[2018-11-02 13:55] LABS: ALBUMIN 4.2 g/dL (3.2-5.5); ALBUMIN/GLOBULIN RATIO 1.4 (1.0-2.2); ALKALINE PHOSPHATASE 63 IU/L (42-121); ALT ALANINE AMINOTRANSFERASE 14 IU/L (10-60); AST ASPARTATE AMINOTRANSFERASE 20 IU/L (10-42); BILIRUBIN,TOTAL 0.9 mg/dL (0.2-1.0); BUN - BLOOD UREA NITROGEN 9 mg/dL (6-20); CALCIUM 9.4 mg/dL (8.5-10.3); CARBON DIOXIDE - CO2 23 mmol/L (21-32); CHLORIDE 105 mmol/L (101-111); CHOL/HDL RATIO 4.3 (<5.0); CHOLESTEROL 217 mg/dL; CREATININE 0.6 mg/dL (0.6-1.2); GFR - MDRD 144 (>89); GLUCOSE 101 mg/dL (70-100); HDL CHOLESTEROL 50 mg/dL; LDL CHOLESTEROL,CALCULATED 146 mg/dL; LDL/HDL RATIO 2.9 (<3.6); SODIUM 135 mmol/L (135-145); TOTAL PROTEIN 7.1 g/dL (6.7-8.2); VLDL CHOLESTEROL 21 mg/dL
== END 2018-11-02 23:59 | disposition home or self-care (01) ==
LOC: LAB.N 08:45
PROVIDERS: ATTEND Nurse Practitioner Gerontology
DX: I10 Essential (primary) hypertension (principal); F10.10 Alcohol abuse, uncomplicated; Z13.9 Encounter for screening, unspecified
CPT/HCPCS: 36415; 80053; 80061; 83721; 84443; 85025

== ENCOUNTER 2019-01-04 09:00 | Outpatient (CLI) | payer MEDICAID ==
[2019-01-05 13:46] LABS: HEPATITIS C ANTIBODY NON-REACTIVE (NON-REACTIVE)
[2019-01-05 16:13] LABS: HIV AG/AB 4TH GEN NON-REACTIVE (NON-REACTIVE)
== END 2019-01-04 23:59 ==
LOC: LAB.N 09:00
PROVIDERS: ATTEND Nurse Practitioner Gerontology
DX: Z11.3 Encounter for screening for infections with a predominantly sexual mode of transmission (principal)
CPT/HCPCS: 36415; 86803; 87389

== ENCOUNTER 2019-08-09 13:43 | Outpatient (CLI) | payer MEDICAID | END 2019-08-09 23:59 | disposition home or self-care (01) | LOC: LAB.N 13:43 | PROVIDERS: ATTEND Nurse Practitioner Gerontology | DX: R35.0 Frequency of micturition (principal) | CPT/HCPCS: 36415; 84153 ==

== ENCOUNTER 2020-03-07 08:00 | Outpatient (CLI) | payer MEDICAID ==
[2020-03-07 17:50] LABS: BASOPHILS # (AUTO) 0.1 10^3/uL (0.0-0.1); BASOPHILS % (AUTO) 0.8 %; EOSINOPHILS # (AUTO) 0.3 10^3/uL (0.0-0.7); EOSINOPHILS % (AUTO) 4.2 %; HGB - HEMOGLOBIN 14.3 g/dL (14.0-18.0); LYMPHOCYTES # (AUTO) 1.3 10^3/uL (1.5-3.5); LYMPHOCYTES % (AUTO) 20.5 %; MEAN CORPUSCULAR HGB CONC 33.1 g/dL (32.0-36.0); MEAN CORPUSCULAR VOLUME 96.6 fL (80.0-94.0); MEAN PLATELET VOLUME 9.3 fL (7.4-11.4); MONOCYTES # (AUTO) 0.8 10^3/uL (0.0-1.0); MONOCYTES % (AUTO) 12.3 %; NEUTROPHILS # (AUTO) 3.8 10^3/uL (1.5-6.6); NEUTROPHILS % (AUTO) 61.4 %; PLT - PLATELET COUNT 300 10^3/uL (130-450); RED BLOOD COUNT 4.47 10^6/uL (4.70-6.10); RED CELL DISTRIBUTION WIDTH 14.2 % (12.0-15.0); WHITE BLOOD COUNT 6.2 x10^3/uL (4.8-10.8)
[2020-03-07 17:57] LABS: ALBUMIN 4.5 g/dL (3.2-5.5); ALBUMIN/GLOBULIN RATIO 1.4 (1.0-2.2); CALCIUM 9.3 mg/dL (8.5-10.3); CREATININE 0.7 mg/dL (0.6-1.2); TOTAL PROTEIN 7.8 g/dL (6.7-8.2)
== END 2020-03-07 23:59 | disposition home or self-care (01) ==
LOC: LAB.WCP 08:00
PROVIDERS: ATTEND Family Medicine
DX: I10 Essential (primary) hypertension (principal)
CPT/HCPCS: 36415; 80053; 80061; 83721; 85025

== ENCOUNTER 2020-03-18 08:00 | Outpatient (CLI) | payer MEDICAID ==
--- NOTE | 2020-03-18 14:10 | Ultrasound Report ---
Reason: ABNORMAL LIVER FUNCTION TEST Procedure Date: 03/18/2020 Accession Number: [id number] / [id number] Procedure: US - Abdomen Limited CPT Code: Final Report FULL RESULT: EXAM: ABDOMEN ULTRASOUND LIMITED, RUQ EXAM DATE: 03/18/2020 08:36 AM. CLINICAL HISTORY: ABNORMAL LIVER FUNCTION TEST. COMPARISON: ABDOMEN LIMITED 11/05/2017 3:36 PM ABDOMEN/PELVIS W/ 11/05/2017 4:59 PM. TECHNIQUE: Real-time scanning was performed with static images obtained. FINDINGS: Liver: Normal in size. Echogenic parenchyma with mildly heterogeneous echotexture. 15.3 cm. Main portal vein flow: Hepatopetal. Gallbladder: Normal. No stones, wall thickening, or sonographic Rios's sign. Biliary System: CBD measures 4 mm. No intrahepatic or extrahepatic ductal dilatation. Other: The right kidney is unremarkable without hydronephrosis. The visualized portion of the pancreas is unremarkable. IMPRESSION: Hepatic steatosis versus other hepatocellular disease. [facility]
== END 2020-03-18 08:01 | disposition home or self-care (01) ==
LOC: DI 08:00
PROVIDERS: ATTEND Family Medicine
DX: R94.5 Abnormal results of liver function studies (principal)
CPT/HCPCS: 76705

== ENCOUNTER 2020-08-03 06:12 | Outpatient (CLI) | payer MEDICAID ==
--- NOTE | 2020-08-03 08:52 | XRAY Report ---
PROCEDURE: Knee View LT INDICATIONS: Left knee pain TECHNIQUE: 2 views of the left knee(s) were acquired. COMPARISON: None. FINDINGS: Bones: No fractures or dislocations. No suspicious bony lesions. Soft tissues: No joint effusion. No suspicious soft tissue calcifications. IMPRESSION: Left knee without radiographic abnormalities. Reviewed by: Duy Villegas MD on 08/03/2020 8:51 AM PDT Approved by: Duy Villegas MD on 08/03/2020 8:51 AM PDT Station ID: [id number]
== END 2020-08-03 06:13 | disposition home or self-care (01) ==
LOC: DI 06:12
PROVIDERS: ATTEND Family Medicine
DX: M25.562 Pain in left knee (principal)

== ENCOUNTER 2020-10-26 06:08 | Emergency (ER) | payer MEDICAID ==
--- NOTE | 2020-10-26 06:28 | ED Physician Documentation ---
PD HPI BACK PAIN - Stated complaint Stated Complaint: BACK PX - Chief complaint Chief Complaint: Back Pain - History obtained from History obtained from: Patient - History of Present Illness Timing - onset: How many days ago (few), Chronic (has chronic low back pain for years, worse few days ago when carrying wood in for his parents woodstove. Hurting worse with stiffness. He says drinking alcohol regularly instead of pain meds for the back. Would like to stop drinking for pain, but does not like to take narcotics.) Timing - details: Gradual onset Location: Lower, Left (radiating down back of left leg.) Quality: Pain, Spasm Associated symptoms: No: Weakness, Numbness, Incontinent of urine Worsened by: Movement, Twisting Contributing factors: Lifting. No: Trauma Similar symptoms before: Diagnosis (prior MRI few years ago showing some disc disease and spondylo.) Recently seen: Clinic (seen PMD [place] and Rx elavil for pain. NO improvement.) Review of Systems Constitutional: denies: Fever, Chills Nose: denies: Rhinorrhea / runny nose, Congestion Throat: denies: Sore throat Respiratory: denies: Cough GI: denies: Abdominal Pain, Nausea, Vomiting : denies: Incontinent Skin: denies: Rash, Lesions Neurologic: denies: Focal weakness, Numbness PD PAST MEDICAL HISTORY - Past Medical History Past Medical History: Yes Cardiovascular: None Respiratory: None Psych: Other Musculoskeletal: None, Chronic back pain, Other Other Past Medical History: Alcoholism - Past Surgical History Past Surgical History: Yes - Present Medications Home Medications: Ambulatory Orders Medication Instructions Recorded Confirmed HYDROcod/ACETAM 5/325 [[place] 5/325] 1 - 2 ea PO Q6H PRN #15 tablet 11/05/17 10/26/20 Omeprazole [PriLOSEC] 20 mg PO DAILY #14 capsule 11/05/17 10/26/20 Acetaminophen [Tylenol] 650 mg PO TID #90 tab 10/26/20 Amitriptyline [Elavil] 25 mg PO QPM 10/26/20 10/26/20 Naproxen Sodium [Anaprox Ds] 550 mg PO BID #20 tablet 10/26/20 dexAMETHasone [Decadron] 4 mg PO DAILY #5 tablet 10/26/20 tiZANidine [Zanaflex] 4 mg PO Q8H PRN #25 tablet 10/26/20 - Allergies Allergies/Adverse Reactions: Allergies Allergy/AdvReac Type Severity Reaction Status Date / Time No Known Drug Allergies Allergy Verified 10/26/20 06:18 - Social History Does the pt smoke?: Yes Smoking Status: Current every day smoker Does the pt drink ETOH?: Yes Does the pt have substance abuse?: Yes Substance Use and Type: Other - Immunizations Immunizations are current?: No Immunizations: TDAP >10years/unknown - POLST Patient has POLST: No PD ED PE NORMAL - Vitals Vital signs reviewed: Yes - General General: Alert and oriented X 3, Well developed/nourished, Other (guarded ROM of the low back. some mild slurring of speech c/w some intoxication. ) - Neck Neck: Supple, no meningeal sign, No adenopathy - Cardiac Cardiac: RRR, No murmur - Respiratory Respiratory: Clear bilaterally - Abdomen Abdomen: Soft, Non tender - Back Back: No CVA TTP, No spinal TTP (tender really left lower back without point trigger, redness, rash. ) - Derm Derm: Normal color, Warm and dry, No rash - Extremities Extremities: Normal ROM s pain, No edema, No calf tenderness / cord - Neuro Neuro: Alert and oriented X 3, No motor deficit, No sensory deficit, Other (normal knee reflexes.) Results - Vitals Vitals: Vital Signs - 24 hr 10/26/20 10/26/20 06:15 07:40 Temperature 36.3 C L Heart Rate 106 H 92 Respiratory 18 16 Rate Blood Pressure 149/103 H 138/95 H O2 Saturation 96 97 Oxygen O2 Source Room air PD MEDICAL DECISION MAKING - ED course Complexity details: reviewed old records (lumbar MRI from few years ago), considered differential (low back pain with sciatic pain. No LE weakness/numbness. He does not want narcotics Rx. Encouraged him to not use al cohol as pain medication.), d/w patient Departure - Departure Disposition: 01 Home, Self Care Clinical Impression: Alcoholism, Acute exacerbation of chronic low back pain Condition: Stable Record reviewed to determine appropriate education?: Yes Instructions: ED Sciatica Follow-Up: Tonny Xie DO [Primary Care Provider] - Prescriptions: Naproxen Sodium [Anaprox Ds] 550 mg PO BID #20 tablet dexAMETHasone [Decadron] 4 mg PO DAILY #5 tablet Acetaminophen [Tylenol] 650 mg PO TID #90 tab tiZANidine [Zanaflex] 4 mg PO Q8H PRN #25 tablet PRN Reason: Spasms Comments: Continue to diminish alcohol use for treatment of your back pain. Seek help through your primary care or alcohol treatment programs to help with this. For your back pain, I understand that you would like to not be prescribed opiates/narcotics. Those would not be used for the long-term anyway. Sometimes they are useful in the short-term. Otherwise we use a combination of anti-inflammatories and muscle relaxants and medications to help with the nerve irritation. And then adding basic pain medicine. Continue the amitriptyline prescribed by your primary care. In the short-term add Decadron steroid for inflammation in the discs and muscles. Also tizanidine muscle relaxant for spasms and stiffness. To that add Tylenol three times a day regularly for the next several weeks or so. To that add naproxen twice daily if needed for pain. Follow-up with your primary care for possible physical therapy or other treatment modalities. Discharge Date/Time: 10/26/20 07:40
[2020-10-26] MEDS ORDERED: methocarbamoL 500 MG TABLET PO STA (06:46)
[2020-10-26] MEDS ORDERED: ACETAMINOPHEN 325 MG TABLET PO STA (06:46)
[2020-10-26] MEDS ORDERED: CHERRY SYRUP 10 ML UDC PO ONE (06:46)
[2020-10-26] MEDS ORDERED: DEXAMETHASONE 10 MG/ML VIAL PO STA (06:46)
[2020-10-26] MEDS ORDERED: KETOROLAC 30 MG/ML VIAL IM STA (06:46)
[2020-10-26 08:19] VITALS: BP 138/95
--- OUTSIDE RECORDS SUMMARY | 2020-11-01 00:58 | EXTERNAL MEDICAL SUMMARY RPT | Continuity of Care Document ---
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 Unavailable Unavailable DO Unavailable Unavailable GAYTAN Unavailable Unavailable Scheidt Unavailable Unavailable Problems date description facility 2020-08-03 00:00 [facility] [place] 2020-08-03 06:12 [facility] [place] 2020-09-08 00:00:00 [facility] 2020-09-08 00:00:00 [facility] 2020-09-08 00:00:00 [facility] 2020-09-08 00:00:00 Current [facility] 2020-09-08 00:00:00 Tobacco use and exposure [facility] 2020-09-08 00:00:00 [facility] of drug misuse [facility] 2020-09-08 00:00:00 Tobacco smoking status NHIS [facility] 2020-09-21 00:00:00 XR LUMBAR SPINE 2 OR 3 VIEW [facility] 2020-10-25 00:00:00 [facility] 2020-10-25 00:00:00 [facility] 2020-10-25 00:00:00 [facility] 2020-10-25 00:00:00 Current [facility] 2020-10-25 00:00:00 Tobacco use and exposure [facility] 2020-10-25 00:00:00 Details of drug misuse [facility] [place] [facility] 2020-10-25 00:00:00 Tobacco smoking status NHIS [facility] [place] [facility] 2020-10-27 00:00:00 Other and unspecified alcohol [facility] dependence, unspecified drinking [place] [facility] behavior 2020-10-27 00:00:00 Sciatica [facility] [place] [facility] 2020-10-27 00:00:00 Open wound of forearm, without [facility] Care mention of complication [place] [facility] 2020-10-27 00:00:00 Alcohol dependence, [facility] Care uncomplicated [place] [facility] 2020-10-27 00:00:00 Sciatica, unspecified side [facility] [place] [facility] 2020-10-27 00:00:00 Unspecified [facility] wound of [facility] unspecified forearm, initial [place] [facility] encounter 2020-10-27 00:[facility] 2020-10-30 00:00:00 [facility] 2020-10-30 00:00:00 Health-related behavior [facility] [place] [facility] 2020-10-30 00:00:00 [facility] [place] [facility] 2020-10-30 00:00:00 Exercise [facility] 2020-10-30 00:00:00 Details of drug misuse behavior [facility] [place] [facility] 2020-10-30 00:00:00 [facility] [place] [facility] 2020-10-30 00:00:00 Tobacco smoking status LAIS [facility] [place] [facility] Allergies date description facility [facility] SULFA (SULFONAMIDE ANTIBIOTICS) [facility] IODINATED CONTRAST MEDIA [facility] NO KNOWN ALLERGIES [facility] MORPHINE [facility] AC[facility]INOPHEN [facility]YE [facility] DOXYCYCLINE [facility] ERYTHROMYCIN BASE [facility] METFORMIN [facility] LINEZOLID [facility] HYDROCODONE-ACETAMINOPHEN [facility] SULFAMETHOXAZOLE-TRIMETHOPRIM [facility] No Known Drug Allergies [facility] PENICILLINS [facility] VANCOMYCIN ANALOGUES [facility] ical Center SULFA (SULFONAMIDE ANTIBIOTICS) [facility] CRAB [facility] lisinopril [facility] No known allergies [facility] Pollen [facility] BUPIVACAINE [facility] NO KNOWN ENVIRONMENTAL ALLERGIES [facility] NO KNOWN ALLERGIES [facility] No Known Drug Allergies [facility] Medications date description facility 2020-10-27 00:00:00 null [facility] [place] [facility] 2020-10-27 00:00:00 null [facility] [place] [facility] 2020-10-27 00:00:00 null [facility] [place] [facility] 2020-10-27 00:00:00 null [facility] [place] [facility] 2020-10-27 00:00:00 null [facility] [place] [facility] 2020-10-27 00:00:00 null [facility] [place] [facility] 2020-10-27 00:00:00 [facility] [place] [facility] 2020-10-27 00:00:00 null [facility] [place] [facility] 2020-10-27 00:00:00 DEXAMETHASONE [facility] [place] [facility] 2020-10-27 00:00:00 TIZANIDINE HCL [facility] [place] [facility] 2020-10-27 00:00:00 ACETAMINOPHEN [facility] [place] [facility] 2020-10-27 00:00:00 NAPROXEN SODIUM [facility] [place] [facility] 2020-10-27 00:00:00 DEXAMETHASONE [facility] [place] [facility] 2020-10-27 00:00:00 ACETAMINOPHEN [facility] [place] [facility] 2020-10-27 00:00:00 TIZANIDINE HCL [facility] [place] [facility] 2020-10-27 00:00:00 NAPROXEN SODIUM [facility] [place] [facility] Procedures date description facility 2020-09-21 00:00:00 XR LUMBAR SPINE 2 OR 3 VIEW [facility] [place] [facility] date description facility 2020-09-21 00:00:00 [facility] [place] [facility] Social History date description facility 2020-09-08 00:00:00 Current every day smoker [facility] [place] [facility] date description facility 2020-10-25 00:00:00 Current every day smoker [facility] [place] [facility] date description facility 2020-10-30 00:00:00 Current every day smoker [facility] [place] [facility] Social History date description facility 2020-09-08 00:00:00 Current every day smoker [facility] [place] [facility] date description facility 2020-10-25 00:00:00 Current [facility] day smoker [facility] [place] [facility] date description facility 2020-10-30 00:00:00 Current [facility] sm[facility] [place] [facility] date description facility [id number]
== END 2020-10-26 07:40 | disposition home or self-care (01) ==
LOC: ED 06:08
DX: M54.5 Low back pain (principal); G89.29 Other chronic pain; F10.20 Alcohol dependence, uncomplicated; F17.200 Nicotine dependence, unspecified, uncomplicated
CPT/HCPCS: 96372; 99283; 99284; A9270

== ENCOUNTER 2020-10-30 11:05 | Outpatient (CLI) | payer MEDICAID ==
--- NOTE | 2020-10-30 12:22 | XRAY Report ---
PROCEDURE: Lumbar Spine 2 View INDICATIONS: LOW BACK PAIN TECHNIQUE: 2 views of the lumbar spine were acquired. COMPARISON: None. FINDINGS: Bones: 5 [id number] vertebrae are present. There is normal bony alignment. No vertebral body compression fractures. No suspicious bony lesions. Note is made of mild degenerative disc disease a t L4-5 and L5-S1 and moderate facet osteoarthritis at L4-5. There is moderately severe facet osteoart hritis at L5-S1. Soft tissues: Overlying bowel gas pattern is normal. No suspicious soft tissue calcifications. IMPRESSION: The lower 2 levels of the lumbosacral spine show moderate to moderately severe degenerat dong changes overall but no compression fracture is seen. Spinal and foraminal stenosis would be suspe cted at L5-S1. Reviewed by: Nasim Mohan MD on 10/30/2020 12:20 PM PST Approved by: Nasim Mohan MD on 10/30/2020 12:20 PM PST Station ID: [id number]
--- OUTSIDE RECORDS SUMMARY | 2020-11-01 09:28 | EXTERNAL MEDICAL SUMMARY RPT | Continuity of Care Document ---
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 Unavailable Unavailable Scheidt Unavailable Unavailable DO Unavailable Unavailable GAYTAN Unavailable Unavailable Problems date description facility 2020-08-03 00:00 [facility] [place] 2020-08-03 06:12 [facility] [place] 2020-09-08 00:00:00 [facility] 2020-09-08 00:00:00 [facility] 2020-09-08 00:00:00 [facility] 2020-09-08 00:00:00 Current [facility] 2020-09-08 00:00:00 Tobacco use and exposure [facility] 2020-09-08 00:00:00 Details of drug misuse behavior [facility] 2020-09-08 00:00:00 Tobacco smoking status NHIS [facility] 2020-09-21 00:00:00 XR LUMBAR SPINE 2 OR 3 VIEW [facility] 2020-10-25 00:00:00 [facility] 2020-10-25 00:00:00 [facility] 2020-10-25 00:00:00 [facility] 2020-10-25 00:00:00 Current [facility] 2020-10-25 00:00:00 Tobacco use and exposure [facility] 2020-10-25 00:00:00 Details of drug misuse [facility] [place] [facility] 2020-10-25 00:00:00 Tobacco smoking status NHIS [facility] [place] [facility] 2020-10-27 00:00:00 Other and unspecified alcohol [facility] dependence, unspecified drinking [place] [facility] behavior 2020-10-27 00:00:00 Sciatica [facility] [place] [facility] 2020-10-27 00:00:00 [facility] mention of complication [place] [facility] 2020-10-27 00:00:00 Alcohol dependence, [facility] uncomplicated [place] [facility] 2020-10-27 00:00:00 Sciatica, unspecified side [facility] [place] [facility] 2020-10-27 00:00:00 Unspecified [facility] wound of [facility] unspecified forearm, initial [place] [facility] encounter 2020-10-27 00:00:00 [facility] 2020-10-30 00:00:00 [facility] 2020-10-30 00:00:00 Health-related behavior [facility] Primary Care [place] [facility] 2020-10-30 00:00:00 Tobacco use and exposure [facility] [place] [facility] 2020-10-30 00:00:00 Exercise [facility] 2020-10-30 00:00:00 Details of drug misuse behavior [facility] Primary Care [place] [facility] 2020-10-30 00:00:00 Current [facility] [place] [facility] 2020-10-30 00:00:00 Tobacco smoking status PAIS [facility] [place] [facility] Allergies date description facility PENICILLINS [facility] SULFA (SULFONAMIDE ANTIBIOTICS) [facility] IODINATED CONTRAST MEDIA [facility] NO KNOWN ALLERG[facility] MORPHINE [facility] ACETAMINOPHEN [facility] DOXYCYCLINE [facility] ERYTHROMYCIN BASE [facility] METFORMIN [facility] EGG [facility] LINEZOLID [facility] HYDROCODONE-ACETAMINOPHEN [facility] SULFAMETHOXAZOLE-TRIMETHOPRIM [facility] No Known Drug Allergies [facility] PENICILLINS [facility] VANCOMYCIN ANALOGUES [facility] ical Center SULFA (SULFONAMIDE ANTIBIOTICS) [facility] CRAB [facility] lisinopril [facility] No known allergies [facility] Pollen [facility] BUPIVACAINE [facility] NO KNOWN ENVIRONMENTAL ALLERGIES [facility] NO KNOWN ALLERGIES [facility] No Known Drug Allergies [facility] Medications date description facility 2020-10-27 00:00:00 null [facility] [place] [facility] 2020-10-27 00:00:00 null [facility] [place] [facility] 2020-10-27 00:00:00 null [facility] [place] [facility] 2020-10-27 00:00:00 null [facility] [place] [facility] 2020-10-27 00:00:00 null [facility] [place] [facility] 2020-10-27 00:00:00 null [facility] [place] [facility] 2020-10-27 00:00:00 null [facility] [place] [facility] 2020-10-27 00:00:00 null [facility] [place] [facility] 2020-10-27 00:00:00 DEXAMETHASONE [facility] [place] [facility] 2020-10-27 00:00:00 TIZANIDINE HCL [facility] [place] [facility] 2020-10-27 00:00:00 ACETAMINOPHEN [facility] [place] [facility] 2020-10-27 00:00:00 NAPROXEN SODIUM [facility] [place] [facility] 2020-10-27 00:00:00 DEXAMETHASONE [facility] [place] [facility] 2020-10-27 00:00:00 ACETAMINOPHEN [facility] [place] [facility] 2020-10-27 00:00:00 TIZANIDINE HCL [facility] [place] [facility] 2020-10-27 00:00:00 NAPROXEN SODIUM [facility] [place] [facility] Procedures date description facility 2020-09-21 00:00:00 XR LUMBAR SPINE 2 OR 3 VIEW [facility] [place] [facility] date description facility 2020-09-21 00:00:00 [facility] [place] [facility] Social History date description facility 2020-09-08 00:00:00 Current [facility] day smoker [facility] [place] [facility] date description facility 2020-10-25 00:00:00 Current every day smoker [facility] [place] [facility] date description facility 2020-10-30 00:00:00 Current every day smoker [facility] [place] [facility] Social History date description facility 2020-09-08 00:00:00 Current every day smoker [facility] [place] [facility] date description facility 2020-10-25 00:00:00 Current [facility] day smoker [facility] [place] [facility] date description facility 2020-10-30 00:00:00 Current [facility] sm[facility] [place] [facility] date description facility [id number]
== END 2020-10-30 11:06 | disposition home or self-care (01) ==
LOC: DI.WCP 11:05
PROVIDERS: ATTEND Nurse Practitioner Family
DX: M47.817 Spondylosis without myelopathy or radiculopathy, lumbosacral region (principal)

== ENCOUNTER 2020-11-10 08:32 | Day surgery (SDC) | payer MEDICAID ==
[2020-11-10] MEDS ORDERED: LACTATED RINGERS 1,000 ML IV ONE ×2 (09:10→11:12)
[2020-11-10] MEDS ORDERED: MIDAZOLAM 2 MG/2 ML VIAL ONE ×4 (09:57→10:25)
[2020-11-10] MEDS ORDERED: fentaNYL 250 MCG/5 ML VIAL ONE (09:58)
[2020-11-10 11:17] VITALS: BP 107/90
== END 2020-11-10 08:33 | disposition home or self-care (01) ==
LOC: SDS 08:32
PROVIDERS: ATTEND Surgery
PROC: 0DBL8ZZ Excision of Transverse Colon, Via Natural or Artificial Opening Endoscopic (ICD-10-PCS; 2020-11-10)
PROC: 0DBN8ZZ Excision of Sigmoid Colon, Via Natural or Artificial Opening Endoscopic (ICD-10-PCS; 2020-11-10)
PROC: 0DBK8ZZ Excision of Ascending Colon, Via Natural or Artificial Opening Endoscopic (ICD-10-PCS; principal; 2020-11-10 10:00)
DX: Z12.11 Encounter for screening for malignant neoplasm of colon (principal); D12.2 Benign neoplasm of ascending colon; D12.3 Benign neoplasm of transverse colon; D12.5 Benign neoplasm of sigmoid colon; K57.30 Diverticulosis of large intestine without perforation or abscess without bleeding; F17.290 Nicotine dependence, other tobacco product, uncomplicated; I10 Essential (primary) hypertension
CPT/HCPCS: 45380; 45385; J3010; J7120

== ENCOUNTER 2021-03-13 08:00 | Outpatient (CLI) | payer MEDICAID ==
[2021-03-13 12:13] LABS: BASOPHILS # (AUTO) 0.1 10^3/uL (0.0-0.1); BASOPHILS % (AUTO) 2.4 %; EOSINOPHILS # (AUTO) 0.4 10^3/uL (0.0-0.7); EOSINOPHILS % (AUTO) 8.5 %; HCT - HEMATOCRIT 43.1 % (42.0-52.0); LYMPHOCYTES # (AUTO) 1.3 10^3/uL (1.5-3.5); LYMPHOCYTES % (AUTO) 26.2 %; MEAN CORPUSCULAR HEMOGLOBIN 32.5 pg (27.0-31.0); MEAN CORPUSCULAR HGB CONC 32.5 g/dL (32.0-36.0); MEAN PLATELET VOLUME 9.9 fL (7.4-11.4); MONOCYTES # (AUTO) 0.8 10^3/uL (0.0-1.0); MONOCYTES % (AUTO) 14.8 %; NEUTROPHILS # (AUTO) 2.4 10^3/uL (1.5-6.6); NEUTROPHILS % (AUTO) 47.5 %; PLT - PLATELET COUNT 192 10^3/uL (130-450); RED BLOOD COUNT 4.31 10^6/uL (4.70-6.10); RED CELL DISTRIBUTION WIDTH 14.4 % (12.0-15.0); WHITE BLOOD COUNT 5.1 x10^3/uL (4.8-10.8)
[2021-03-13 12:45] LABS: ALBUMIN 4.4 g/dL (3.2-5.5); ALBUMIN/GLOBULIN RATIO 1.4 (1.0-2.2); ALKALINE PHOSPHATASE 66 IU/L (42-121); ALT ALANINE AMINOTRANSFERASE 132 IU/L (10-60); AST ASPARTATE AMINOTRANSFERASE 141 IU/L (10-42); BILIRUBIN,TOTAL 0.9 mg/dL (0.2-1.0); BUN - BLOOD UREA NITROGEN 15 mg/dL (6-20); CALCIUM 8.8 mg/dL (8.5-10.3); CARBON DIOXIDE - CO2 28 mmol/L (21-32); CHLORIDE 109 mmol/L (101-111); CHOL/HDL RATIO 2.8 (<5.0); CHOLESTEROL 184 mg/dL; CREATININE 0.8 mg/dL (0.6-1.2); GAMMA GLUTAMYL TRANSPEPTIDASE 55 IU/L (8-55); GFR - MDRD 102 (>89); GLUCOSE 100 mg/dL (70-100); HDL CHOLESTEROL 65 mg/dL; LDL CHOLESTEROL,CALCULATED 106 mg/dL; LDL/HDL RATIO 1.6 (<3.6); POTASSIUM 4.1 mmol/L (3.5-5.0); SODIUM 145 mmol/L (135-145); TOTAL PROTEIN 7.5 g/dL (6.7-8.2); TRIGLYCERIDES 66 mg/dL; VLDL CHOLESTEROL 13 mg/dL
== END 2021-03-13 23:59 | disposition home or self-care (01) ==
LOC: LAB.WCP 08:00
PROVIDERS: ATTEND Family Medicine
DX: R94.5 Abnormal results of liver function studies (principal); Z12.5 Encounter for screening for malignant neoplasm of prostate; I10 Essential (primary) hypertension
CPT/HCPCS: 36415; 80053; 80061; 82977; 83721; 84153; 85025

== ENCOUNTER 2022-07-24 08:00 | Outpatient (CLI) | payer MEDICAID ==
[2022-07-24 12:06] LABS: BASOPHILS # (AUTO) 0.1 10^3/uL (0.0-0.1); BASOPHILS % (AUTO) 1.1 %; EOSINOPHILS # (AUTO) 0.1 10^3/uL (0.0-0.7); EOSINOPHILS % (AUTO) 1.4 %; HCT - HEMATOCRIT 31.1 % (42.0-52.0); HGB - HEMOGLOBIN 10.3 g/dL (14.0-18.0); LYMPHOCYTES # (AUTO) 1.6 10^3/uL (1.5-3.5); LYMPHOCYTES % (AUTO) 21.9 %; MEAN CORPUSCULAR HEMOGLOBIN 29.1 pg (27.0-31.0); MEAN CORPUSCULAR HGB CONC 33.1 g/dL (32.0-36.0); MEAN CORPUSCULAR VOLUME 87.9 fL (80.0-94.0); MEAN PLATELET VOLUME 9.5 fL (7.4-11.4); MONOCYTES # (AUTO) 0.8 10^3/uL (0.0-1.0); MONOCYTES % (AUTO) 10.7 %; NEUTROPHILS # (AUTO) 4.7 10^3/uL (1.5-6.6); NEUTROPHILS % (AUTO) 64.4 %; PLT - PLATELET COUNT 490 10^3/uL (130-450); RED BLOOD COUNT 3.54 10^6/uL (4.70-6.10); RED CELL DISTRIBUTION WIDTH 16.1 % (12.0-15.0); WHITE BLOOD COUNT 7.3 x10^3/uL (4.8-10.8)
[2022-07-24 12:24] LABS: ALBUMIN 4.3 g/dL (3.2-5.5); ALBUMIN/GLOBULIN RATIO 1.2 (1.0-2.2); ALKALINE PHOSPHATASE 48 IU/L (42-121); ALT ALANINE AMINOTRANSFERASE 13 IU/L (10-60); AST ASPARTATE AMINOTRANSFERASE 23 IU/L (10-42); BILIRUBIN,TOTAL 0.8 mg/dL (0.2-1.0); BUN - BLOOD UREA NITROGEN 9 mg/dL (6-20); CALCIUM 9.2 mg/dL (8.5-10.3); CARBON DIOXIDE - CO2 24 mmol/L (21-32); CHLORIDE 102 mmol/L (101-111); CHOL/HDL RATIO 3.3 (<5.0); CHOLESTEROL 170 mg/dL; CREATININE 0.7 mg/dL (0.6-1.2); GFR - MDRD 118 (>89); GLUCOSE 99 mg/dL (70-100); HDL CHOLESTEROL 52 mg/dL; LDL CHOLESTEROL,CALCULATED 97 mg/dL; LDL/HDL RATIO 1.9 (<3.6); LIPASE 43 U/L (22-51); POTASSIUM 3.8 mmol/L (3.5-5.0); SODIUM 136 mmol/L (135-145); TOTAL PROTEIN 7.8 g/dL (6.7-8.2); TRIGLYCERIDES 107 mg/dL; VLDL CHOLESTEROL 21 mg/dL
== END 2022-07-24 23:59 | disposition home or self-care (01) ==
LOC: LAB.N 08:00
PROVIDERS: ATTEND Registered Nurse
DX: R11.0 Nausea (principal); R39.15 Urgency of urination; R30.0 Dysuria; R79.89 Other specified abnormal findings of blood chemistry
CPT/HCPCS: 36415; 80053; 80061; 83690; 83721; 84153; 85025; 87086

== ENCOUNTER 2022-08-26 17:05 | Emergency (ER) | payer MEDICAID ==
[2022-08-26 17:58] LABS: BILIRUBIN,URINE NEGATIVE (NEGATIVE); GLUCOSE, URINE (UA) NEGATIVE (NEGATIVE); KETONES,URINE (UA) 15 mg/dL (NEGATIVE); LEUKOCYTE ESTERASE, URINE NEGATIVE (NEGATIVE); NITRITE,URINE NEGATIVE (NEGATIVE); OCCULT BLOOD,URINE NEGATIVE (NEGATIVE); PROTEIN,URINE TRACE mg/dL (NEGATIVE); UROBILINOGEN,URINE 0.2 (NORMAL) E.U./dL (NORMAL)
[2022-08-26 17:59] LABS: CLARITY,URINE CLEAR (CLEAR)
[2022-08-26 17:59] LABS: BASOPHILS # (AUTO) 0.1 10^3/uL (0.0-0.1); BASOPHILS % (AUTO) 2.6 %; EOSINOPHILS # (AUTO) 0.2 10^3/uL (0.0-0.7); HCT - HEMATOCRIT 32.5 % (42.0-52.0); HGB - HEMOGLOBIN 10.3 g/dL (14.0-18.0); LYMPHOCYTES # (AUTO) 1.3 10^3/uL (1.5-3.5); LYMPHOCYTES % (AUTO) 26.4 %; MEAN CORPUSCULAR HGB CONC 31.7 g/dL (32.0-36.0); MEAN CORPUSCULAR VOLUME 82.1 fL (80.0-94.0); MEAN PLATELET VOLUME 8.8 fL (7.4-11.4); MONOCYTES # (AUTO) 0.5 10^3/uL (0.0-1.0); MONOCYTES % (AUTO) 9.7 %; NEUTROPHILS # (AUTO) 2.8 10^3/uL (1.5-6.6); NEUTROPHILS % (AUTO) 57.1 %; PLT - PLATELET COUNT 333 10^3/uL (130-450); RED BLOOD COUNT 3.96 10^6/uL (4.70-6.10); RED CELL DISTRIBUTION WIDTH 17.6 % (12.0-15.0)
[2022-08-26 18:11] LABS: ALBUMIN 4.5 g/dL (3.2-5.5); ALBUMIN/GLOBULIN RATIO 1.2 (1.0-2.2); BILIRUBIN,TOTAL 0.8 mg/dL (0.2-1.0); CALCIUM 8.7 mg/dL (8.5-10.3); CREATININE 0.6 mg/dL (0.6-1.2); POTASSIUM 3.6 mmol/L (3.5-5.0); TOTAL PROTEIN 8.4 g/dL (6.7-8.2)
--- NOTE | 2022-08-27 00:43 | CT Report ---
PROCEDURE: ABDOMEN/PELVIS WO INDICATIONS: left flank pain TECHNIQUE: Noncontrast 5 mm thick sections acquired from the diaphragms to the symphysis. 5 mm coronal and sagi ttal reformats were then performed. For radiation dose reduction, the following was used: automated exposure control, adjustment of mA and/or kV according to patient size. COMPARISON: CT abdomen pelvis 11/05/2017. FINDINGS: Image quality: Excellent. Lung bases: There is mild dependant atelectasis. Heart: Heart is normal in size. There is a moderate-sized hiatal hernia. URINARY: Right Kidney and Ureter: No stones or hydronephrosis. There is mild nonspecific perinephric strand ing. No hydroureter. Left Kidney and Ureter: There are 2 nonobstructive stones within the inferior pole the left kidney, with the larger stone measuring up to 0.6 cm. This demonstrates attenuation values of approximately 300-400 Hounsfield units. No hydronephrosis.There is mild nonspecific dynamic stranding. No hydroure ter. Bladder: Normal wall thickness. No stones. ABDOMEN: Liver: Noncontrast evaluation of the liver demonstrates no discrete mass. Gallbladder: Within normal limits without calcified gallstones. Biliary ducts: No biliary ductal dilatation. Pancreas: Unremarkable. Spleen: Normal in size. Adrenal Glands: No adrenal nodules. Stomach and Bowel: Stomach, small bowel loops, and colon are normal in caliber and wall thickness. A ppendix is normal in appearance. There is colonic diverticulosis without acute diverticulitis. Peritoneum: No abnormal intraperitoneal fluid. No free air. Ventral Wall: No hernia. Abdominal Nodes: No retroperitoneal or mesenteric adenopathy by size criteria. Vessels: Aorta and inferior vena cava are normal in size. PELVIS: Pelvic Organs: Unremarkable. Pelvic Nodes: No enlarged lymph nodes. Miscellaneous: No inguinal hernias identified. Bones: Visualized osseous structures demonstrate no suspicious focal lesions. IMPRESSION: 1. Left nephrolithiasis without evidence of obstructive uropathy. 2. Colonic diverticulosis without acute diverticulitis. 3. Nonspecific perinephric stranding bilaterally, left greater than right. Evaluation for pyelonephri tis is limited in the absence of intravenous contrast and correlation is recommended clinically. Reviewed by: Christopher King MD on 08/27/2022 12:42 AM PST Approved by: Christopher King MD on 08/27/2022 12:42 AM PST Station ID: [id number]
[2022-08-27] MEDS ORDERED: KETOROLAC 30 MG/ML VIAL IM STA (01:33)
--- NOTE | 2022-08-27 01:36 | ED Physician Documentation ---
History of Present Illness - Stated complaint Stated Complaint: COUGH - Chief complaint Chief Complaint: Abd Pain - History obtained from History obtained from: Patient - Additonal information Additional information: 51yM p/w R flank pain intermittent over past couple days, sharp/stabbing, severe, worse with position changes and turning, without associated features. denies fever, urinary sx, abd pain, nausea, diarrhea, bloody stool. Review of Systems Constitutional: denies: Fever, Chills GI: denies: Abdominal Pain, Nausea Musculoskeletal: reports: Back pain PD PAST MEDICAL HISTORY - Past Medical History Past Medical History: Yes Cardiovascular: None Respiratory: None Psych: Other Musculoskeletal: None, Chronic back pain, Other - Past Surgical History Past Surgical History: Yes - Present Medications Home Medications: Ambulatory Orders Medication Instructions Recorded Confirmed HYDROcod/ACETAM 5/325 [[place] 5/325] 1 - 2 ea PO Q6H PRN #15 tablet 11/05/17 10/26/20 Omeprazole [PriLOSEC] 20 mg PO DAILY #14 capsule 11/05/17 11/10/20 Acetaminophen [Tylenol] 650 mg PO TID #90 tab 10/26/20 Amitriptyline [Elavil] 25 mg PO QPM 10/26/20 10/26/20 Naproxen Sodium [Anaprox Ds] 550 mg PO BID #20 tablet 10/26/20 tiZANidine [Zanaflex] 4 mg PO Q8H PRN #25 tablet 10/26/20 Albuterol Sulf [Ventolin Hfa 1 - 2 puffs INH Q4HR PRN #1 gm 06/16/22 Inhaler] Omeprazole 40 mg PO DAILY #30 cap 06/16/22 Potassium Chloride [Klor-Con M20] 20 meq PO DAILY #30 tab 06/16/22 lisinopriL [Lisinopril] 10 mg PO DAILY #30 tablet 06/16/22 predniSONE [Deltasone] 40 mg PO DAILY #10 tablet 06/16/22 - Allergies Allergies/Adverse Reactions: Allergies Allergy/AdvReac Type Severity Reaction Status Date / Time No Known Drug Allergies Allergy Verified 06/16/22 09:59 - Social History Does the pt smoke?: Yes Smoking Status: Current every day smoker Does the pt drink ETOH?: Yes Does the pt have substance abuse?: Yes - Immunizations Immunizations are current?: No Immunizations: TDAP >10years/unknown - POLST Patient has POLST: No PD ED PE NORMAL - Vitals Vital signs reviewed: Yes - General General: Alert and oriented X 3, Other (moderate distress, clutching R flank) - HEENT HEENT: Atraumatic, PERRL, EOMI - Neck Neck: Supple, no meningeal sign - Cardiac Cardiac: RRR - Respiratory Respiratory: No respiratory distress, Clear bilaterally - Abdomen Abdomen: Non tender, Non distended - Back Back: No CVA TTP (R lateral midback acute tenderness to light palpation in muscle distribution), Other (R lateral midback acute tenderness to palpation in muscle distribution) - Derm Derm: Normal color, Warm and dry, No rash - Extremities Extremities: No deformity - Neuro Neuro: Alert and oriented X 3, No motor deficit, No sensory deficit - Psych Psych: Normal mood, Normal affect Results - Vitals Vitals: Vital Signs - 24 hr 08/26/22 08/26/22 08/26/22 17:14 21:19 23:00 Temperature 37.4 C 37.3 C Heart Rate 124 H 99 99 Respiratory 16 18 18 Rate Blood Pressure 139/103 H 139/96 H 133/91 H O2 Saturation 96 100 100 08/27/22 08/27/22 08/27/22 01:00 03:00 05:00 Temperature 37.1 C Heart Rate 99 86 81 Respiratory 18 16 15 Rate Blood Pressure 144/99 H 154/100 H 144/99 H O2 Saturation 97 98 99 Oxygen O2 Source Room air - Labs Labs: Laboratory Tests 08/26/22 08/26/22 08/26/22 17:45 17:52 17:52 WBC 5.0 RBC 3.96 L Hgb 10.3 L Hct 32.5 L MCV 82.1 MCH 26.0 L MCHC 31.7 L RDW 17.6 H Plt Count 333 MPV 8.8 Neut # (Auto) 2.8 Lymph # (Auto) 1.3 L Tucker # (Auto) 0.5 Eos # (Auto) 0.2 Baso # (Auto) 0.1 Absolute Nucleated RBC 0.00 Nucleated RBC % 0.0 Sodium 134 L Potassium 3.6 Chloride 102 Carbon Dioxide 21 Anion Gap 11.0 BUN 14 Creatinine 0.6 Estimated GFR (MDRD) 141 Glucose 94 Calcium 8.7 Total Bilirubin 0.8 AST 37 ALT 18 Alkaline Phosphatase 67 Total Protein 8.4 H Albumin 4.5 Globulin 3.9 Albumin/Globulin Ratio 1.2 Lipase 53 H Urine Color YELLOW Urine Clarity CLEAR Urine pH 6.0 Ur Specific [place] >=1.030 H Urine Protein TRACE Urine Glucose (UA) NEGATIVE Urine Ketones 15 H Urine Occult Blood NEGATIVE Urine Nitrite NEGATIVE Urine Bilirubin NEGATIVE Urine Urobilinogen 0.2 (NORMAL) Ur Leukocyte Esterase NEGATIVE Ur Microscopic Review NOT INDICATED Urine Culture Comments NOT INDICATED PD MEDICAL DECISION MAKING - ED course ED course: 51yM p/w R flank pain intermittent over past couple days, sharp/stabbing, severe, worse with position changes and turning, without associated features. denies fever, urinary sx, abd pain, nausea, diarrhea, bloody stool. CT AP shows two L renal stones without ureteral involvement. creatinine normal. u/a negative. pain is reproducible on exam, suggesting MSK cause for symptoms. will treat with toradol and reevaluate. Patient still with muscle pain, however no emergent cause for his symptoms has been uncovered. Plan to dc to [place] and to f/u with walk in clinic. return precautions given. Departure - Departure Disposition: 01 Home, Self Care Clinical Impression: Flank pain Condition: Stable Instructions: ED Flank Pain Uncertain Cause Comments: You were seen in the ED for flank pain of uncertain cause. Since it is positional, it's likely this is muscle related pain. Please follow up in [place] walk in clinic for further management. return to the ED if you have new or worsening symptoms or other concerns. [facility] [address], [place] 7am-7pm M to 9am-4pm Friday noon - 4pm friday
[2022-08-27] MEDS ORDERED: methocarbamoL 500 MG TABLET PO STA (01:55)
[2022-08-27 05:05] VITALS: BP 144/99
== END 2022-08-27 05:31 | disposition home or self-care (01) ==
LOC: EDUNIT# → ED 17:05
DX: R10.30 Lower abdominal pain, unspecified (principal); F17.200 Nicotine dependence, unspecified, uncomplicated
CPT/HCPCS: 36415; 74176; 80053; 81003; 83690; 85025; 96372; 99282; 99284; A9270; 81001; 87086

== ENCOUNTER 2022-09-18 08:00 | Outpatient (CLI) | payer MEDICAID ==
[2022-09-18 18:23] LABS: BASOPHILS # (AUTO) 0.1 10^3/uL (0.0-0.1); BASOPHILS % (AUTO) 1.6 %; EOSINOPHILS # (AUTO) 0.2 10^3/uL (0.0-0.7); EOSINOPHILS % (AUTO) 2.5 %; HCT - HEMATOCRIT 29.5 % (42.0-52.0); HGB - HEMOGLOBIN 9.1 g/dL (14.0-18.0); LYMPHOCYTES % (AUTO) 15.2 %; MEAN CORPUSCULAR HGB CONC 30.8 g/dL (32.0-36.0); MEAN CORPUSCULAR VOLUME 84.3 fL (80.0-94.0); MEAN PLATELET VOLUME 9.7 fL (7.4-11.4); MONOCYTES # (AUTO) 0.5 10^3/uL (0.0-1.0); MONOCYTES % (AUTO) 6.8 %; NEUTROPHILS % (AUTO) 73.3 %; PLT - PLATELET COUNT 201 10^3/uL (130-450); RED CELL DISTRIBUTION WIDTH 18.5 % (12.0-15.0); WHITE BLOOD COUNT 6.8 x10^3/uL (4.8-10.8)
== END 2022-09-18 23:59 | disposition home or self-care (01) ==
LOC: LAB.N 08:00
PROVIDERS: ATTEND Physician Assistant
DX: D64.9 Anemia, unspecified (principal)
CPT/HCPCS: 36415; 85025

== ENCOUNTER 2022-09-18 08:00 | Outpatient (CLI) | payer MEDICAID ==
--- NOTE | 2022-09-18 16:36 | XRAY Report ---
PROCEDURE: Chest 2 View X-Ray INDICATIONS: COUGH TECHNIQUE: 2 views of the chest were acquired. COMPARISON: None FINDINGS: Surgical changes and devices: None. Lungs and pleura: No pleural effusions or pneumothorax. Lungs are clear. Mediastinum: Mediastinal contours are normal. Heart size is normal. Bones and chest wall: No suspicious bony abnormalities. Soft tissues appear unremarkable. IMPRESSION: No acute cardiopulmonary abnormality. Reviewed by: Augustine Hayes on 09/18/2022 4:35 PM [facility] Approved by: Augustine Hayes on 09/18/2022 4:35 PM [facility] Station ID: [id number]
== END 2022-09-18 23:59 | disposition home or self-care (01) ==
LOC: DI.N 08:00
PROVIDERS: ATTEND Physician Assistant
DX: R05.3 Chronic cough (principal)

== ENCOUNTER 2022-11-11 08:52 | Emergency (ER) | payer MEDICAID ==
[2022-11-11] MEDS ORDERED: SODIUM CHLORIDE 0.9% 1,000 ML IV STA (09:25)
--- NOTE | 2022-11-11 09:29 | ED Physician Documentation ---
PD HPI DYSPNEA - Stated complaint Stated Complaint: HIGH HR/DIZZINESS - Chief complaint Chief Complaint: Cardiac - History obtained from History obtained from: Patient, Friend - Additional information Additional information: Patient is a 51-year-old male with a history of COPD and hypertension presenting for evaluation of feeling dyspnea with exertion for the past month. Patient also reports having some dizziness when he stands up.He reports a history of COPD and smokes 1 to 2 packs/day but states his exact number is unclear as he rolls his own cigarettes. He has been feeling more short of breath for the past month. He does have an inhaler and occasionally uses it but has not been using it in recent days for unclear reasons. He reports having a productive cough which is unchanged for him. He denies blood in his cough. He denies having chest pain. He denies leg swelling, history of PE or DVT. He denies abdominal symptoms. He denies drug or alcohol use. Friend at bedside states he seems very dizzy and SOA in the past several days which is why she brought him to ED. Review of Systems Constitutional: denies: Fever Cardiac: denies: Chest pain / pressure Respiratory: reports: Dyspnea, Cough GI: denies: Abdominal Pain Musculoskeletal: denies: Back pain Neurologic: denies: Headache PD PAST MEDICAL HISTORY - Past Medical History Cardiovascular: None Respiratory: None Psych: Other Musculoskeletal: None, Chronic back pain, Other - Past Surgical History Past Surgical History: Yes - Present Medications Home Medications: Ambulatory Orders Medication Instructions Recorded Confirmed Amitriptyline [Elavil] 25 - 50 mg PO QPM 10/26/20 11/11/22 Albuterol Sulf [Ventolin Hfa 1 - 2 puffs INH Q4HR PRN #1 gm 06/16/22 11/11/22 Inhaler] Amoxicillin 1,000 mg PO TID 5 Days #30 cap 11/11/22 Duloxetine HCl [Cymbalta] 60 mg ORAL DAILY 11/11/22 11/11/22 Omeprazole 40 mg PO DAILY #30 cap 11/11/22 Potassium Chloride 20 meq PO DAILY 11/11/22 11/11/22 lisinopriL [Lisinopril] 40 mg ORAL DAILY 11/11/22 11/11/22 - Allergies Allergies/Adverse Reactions: Allergies Allergy/AdvReac Type Severity Reaction Status Date / Time No Known Drug Allergies Allergy Verified 11/11/22 09:00 - Social History Does the pt smoke?: Yes Smoking Status: Current every day smoker Does the pt drink ETOH?: Yes Does the pt have substance abuse?: Yes - Immunizations Immunizations are current?: No Immunizations: TDAP >10years/unknown - POLST Patient has POLST: No PD ED PE NORMAL - General General: Alert and oriented X 3, No acute distress, Well developed/nourished - HEENT HEENT: Atraumatic - Neck Neck: Supple, no meningeal sign - Cardiac Cardiac: RRR, No murmur - Respiratory Respiratory: No respiratory distress, Clear bilaterally, Other (Occasional wheeze) - Abdomen Abdomen: Soft, Non tender, Non distended - Rectal Rectal: Other (Chaperoned by Fredo, brown stool, no blood) - Derm Derm: Warm and dry - Extremities Extremities: No edema, No calf tenderness / cord, Other (Pedal pulses intact) - Neuro Neuro: Alert and oriented X 3, excel expert 2-12 intact, No motor deficit, No sensory deficit, Normal speech, Other (Normal unassisted gait) Results - Vitals Vitals: Vital Signs - 24 hr 11/11/22 11/11/22 11/11/22 09:00 09:22 11:08 Temperature 37.3 C Heart Rate 98 94 82 Heart Rate [ Monitoring electrodes] Respiratory 20 23 26 H Rate Blood Pressure 120/77 105/79 126/92 H Blood Pressure [Right Brachial artery] O2 Saturation 100 100 100 11/11/22 11/11/22 11/11/22 12:28 12:35 12:46 Temperature 36.7 C 36.8 C Heart Rate 73 Heart Rate [ 80 78 Monitoring electrodes] Respiratory 28 H 23 21 Rate Blood Pressure 117/85 H Blood Pressure 119/83 H 117/81 H [Right Brachial artery] O2 Saturation 100 100 100 11/11/22 11/11/22 11/11/22 14:00 14:27 15:12 Temperature 37.1 C 37.1 C Heart Rate 88 Heart Rate [ 88 82 Monitoring electrodes] Respiratory 18 18 18 Rate Blood Pressure 126/88 H Blood Pressure 126/88 H 142/93 H [Right Brachial artery] O2 Saturation 100 100 100 11/11/22 15:23 Temperature 37.1 C Heart Rate 82 Heart Rate [ Monitoring electrodes] Respiratory 18 Rate Blood Pressure 142/93 H Blood Pressure [Right Brachial artery] O2 Saturation 100 Oxygen O2 Source Room air - EKG (time done) 0906 Rate: Rate (enter#) (88) Rhythm: NSR Ischemia: No: ST elevation c/w ischemia - Labs Labs: Microbiology 11/11/22 09:55 Occult Blood - Final Stool Laboratory Tests 11/11/22 11/11/22 11/11/22 09:15 09:15 09:15 WBC 5.9 RBC 2.71 L Hgb 6.2 L* Hct 22.3 L MCV 82.3 MCH 22.9 L MCHC 27.8 L RDW 17.7 H Plt Count 440 MPV 8.9 Neut # (Auto) 3.9 Lymph # (Auto) 0.8 L [place] # (Auto) 0.7 Eos # (Auto) 0.4 Baso # (Auto) 0.1 Absolute Nucleated RBC 0.00 Nucleated RBC % 0.0 D-Dimer Sodium 132 L Potassium 3.7 Chloride 101 Carbon Dioxide 22 Anion Gap 9.0 BUN 15 Creatinine 0.7 Estimated GFR (MDRD) 118 Glucose 112 H Calcium 8.9 Total Bilirubin 0.8 AST 30 ALT 18 Alkaline Phosphatase 55 Troponin I High Sens 166.4 H* Total Protein 8.0 Albumin 4.4 Globulin 3.6 Albumin/Globulin Ratio 1.2 Lipase 46 Blood Type Antibody Screen Crossmatch IS Only 11/11/22 11/11/22 11/11/22 09:15 10:15 11:35 WBC RBC Hgb Hct MCV MCH MCHC RDW Plt Count MPV Neut # (Auto) Lymph # (Auto) [place] # (Auto) Eos # (Auto) Baso # (Auto) Absolute Nucleated RBC Nucleated RBC % D-Dimer 293.6 H Sodium Potassium Chloride Carbon Dioxide Anion Gap BUN Creatinine Estimated GFR (MDRD) Glucose Calcium Total Bilirubin AST ALT Alkaline Phosphatase Troponin I High Sens 198.6 H* Total Protein Albumin Globulin Albumin/Globulin Ratio Lipase Blood Type O POSITIVE Antibody Screen NEGATIVE Crossmatch IS Only See Detail PD Medical Decision Making - ED course Complexity details: reviewed results, re-evaluated patient, d/w patient ED course: Pt is a 51 yo M presenting for evaluation of SOA and dizziness. EKG without ST changes. VSS. Labs reviewed and pt found to be very anemic. States he has been told this from the walk in clinic but never has been low enough to require transfusion. Had on/off noticed black stool and has h/o ulcer. Last time he had discolored stools was 1 month ago. Note from Aug 2022 from walk in clinic reviewed regarding anemia - plan was to continue to follow levels. Discussion of etiology not mentioned. Quit drinking at that time. Stool today on exam is brown and hemoccult negative. Nursing driven orders included troponin which is elevated. Repeat slightly higher. Suspect this is demand related. Pt denies CP to suggest ACS. Ddimer initially ordered and elevated even with age adjustment. CTA neg for PE but shows L basilar infiltrate. Pt has reported cough x 1 month and smoked significantly so will treat. Pt consented to blood transfusion. Pt stated not ready to stop smoking. Pt feeling and tolerating transfusion. Pt signed out at shift change to oncoming provider. - Critical Care Time(min): 34 Time Includes: Direct patient care, Review records Departure - Departure Disposition: 01 Home, Self Care Clinical Impression: Anemia Qualifiers: Anemia type: unspecified type Qualified Code(s): D64.9 - Anemia, unspecified Left lower lobe pneumonia Qualifiers: Pneumonia type: due to unspecified organism Qualified Code(s): J18.9 - Pneumonia, unspecified organism Condition: Stable Instructions: ED Anemia Type Not Specified Prescriptions: Amoxicillin 1,000 mg PO TID 5 Days #30 cap Omeprazole 40 mg PO DAILY #30 cap Comments: Your hemoglobin levels are very low Meaning that you are severely anemic. You did require a blood transfusion today.You may be losing blood in your intestinal tract.I would recommend close follow-up with primary care clinic In the next week for further work-up of your anemia. You may need upper endoscopy and colonoscopy to evaluate for possible bleeding in your GI tract. You were also found to have pneumonia on your CT scan and I have started you on an antibiotic. I have sent this prescription to [facility]. Please continue to abstain from alcohol use. If you notice black or blood in your stools please return to the emergency department. Discharge Date/Time: 11/11/22 15:25
[2022-11-11 09:43] LABS: BASOPHILS # (AUTO) 0.1 10^3/uL (0.0-0.1); BASOPHILS % (AUTO) 1.9 %; EOSINOPHILS # (AUTO) 0.4 10^3/uL (0.0-0.7); EOSINOPHILS % (AUTO) 7.5 %; HCT - HEMATOCRIT 22.3 % (42.0-52.0); LYMPHOCYTES # (AUTO) 0.8 10^3/uL (1.5-3.5); LYMPHOCYTES % (AUTO) 13.1 %; MEAN CORPUSCULAR HEMOGLOBIN 22.9 pg (27.0-31.0); MEAN CORPUSCULAR HGB CONC 27.8 g/dL (32.0-36.0); MEAN CORPUSCULAR VOLUME 82.3 fL (80.0-94.0); MEAN PLATELET VOLUME 8.9 fL (7.4-11.4); MONOCYTES # (AUTO) 0.7 10^3/uL (0.0-1.0); MONOCYTES % (AUTO) 11.2 %; NEUTROPHILS # (AUTO) 3.9 10^3/uL (1.5-6.6); NEUTROPHILS % (AUTO) 65.6 %; PLT - PLATELET COUNT 440 10^3/uL (130-450); RED BLOOD COUNT 2.71 10^6/uL (4.70-6.10); RED CELL DISTRIBUTION WIDTH 17.7 % (12.0-15.0); WHITE BLOOD COUNT 5.9 x10^3/uL (4.8-10.8)
--- NOTE | 2022-11-11 09:47 | XRAY Report ---
PROCEDURE: Chest 1 View X-Ray INDICATIONS: Chest Pain TECHNIQUE: One view of the chest was acquired. COMPARISON: None. FINDINGS: Surgical changes and devices: None. Lungs and pleura: No pleural effusions or pneumothorax. Lungs are clear. Mediastinum: Mediastinal contours appear normal. Heart size is normal. Bones and chest wall: No suspicious bony lesions. Overlying soft tissues appear unremarkable. IMPRESSION: No evidence acute pulmonary process. Reviewed by: Rashard Denton MD on 11/11/2022 9:46 AM [facility] Approved by: Rashard Denton MD on 11/11/2022 9:46 AM [facility] Station ID: [id number]
[2022-11-11 09:50] LABS: HGB - HEMOGLOBIN 6.2 g/dL (14.0-18.0)
[2022-11-11 10:02] LABS: ALBUMIN 4.4 g/dL (3.2-5.5); ALBUMIN/GLOBULIN RATIO 1.2 (1.0-2.2); BILIRUBIN,TOTAL 0.8 mg/dL (0.2-1.0); CALCIUM 8.9 mg/dL (8.5-10.3); CREATININE 0.7 mg/dL (0.6-1.2); POTASSIUM 3.7 mmol/L (3.5-5.0)
[2022-11-11] MEDS ORDERED: iohexoL-300 100 ML VIAL ONE (10:11)
--- NOTE | 2022-11-11 11:21 | CT Report ---
PROCEDURE: ANGIO CHEST W/WO INDICATIONS: SOA CONTRAST: 80ml Omipaque 300 TECHNIQUE: After the administration of intravenous contrast, 2 mm axial images were acquired from the pulmonary apices to the posterior costophrenic angles during the arterial phase. In addition, 1 mm lung kernel and 5 mm soft tissue kernel reconstructions were performed. 3-dimensional coronal oblique maximum int ensity projection (MIP) reformats, 8 mm axial MIP, and 5 mm coronal and sagittal MPR reformats were t hen performed through the thorax. For radiation dose reduction, the following was used: automated exp osure control, adjustment of mA and/or kV according to patient size. COMPARISON: 06/16/2020 FINDINGS: Image quality: Excellent. Pulmonary arteries: Pulmonary arteries are normal in size, and demonstrate no intraluminal filling d efects to suggest central pulmonary embolism. Lungs and pleura: Patchy interstitial infiltrate, basal segments of left lower lobe, new. No pleural effusions or pneumothorax. Central and peripheral airways are patent. Mediastinum: Heart size is normal, without pericardial effusion. No mediastinal or hilar adenopathy . Thoracic aorta is normal in caliber and enhancement. Esophagus is normal in caliber, with moderat rosamaria large hiatal hernia. Bones and chest wall: No suspicious bony lesions. Ribs and thoracic spine appear intact throughout. No axillary or supraclavicular adenopathy. The thyroid is normal in size and there are no incident al findings. Abdomen: Visualized upper abdominal solid organs appear normal in the early arterial phase of enhanc ement. IMPRESSION: 1. No evidence of acute pulmonary embolus. 2. Development of basilar interstitial infiltrates, left lower lobe. 3. Moderately large hiatal hernia. CLINICAL RECOMMENDATION STATEMENTS: In patients <35 years with an ITN detected on CT, MRI, or extrathyroidal ultrasound, the Committee re commends further evaluation with dedicated thyroid ultrasound if the nodule is "e1 cm and has no susp icious imaging features, and if the patient has normal life expectancy. In patients "e35 years with an ITN detected on CT, MRI, or extrathyroidal ultrasound, the Committee r ecommends further evaluation with dedicated thyroid ultrasound if the nodule is "e1.5 cm and has no s uspicious imaging features, and if the patient has normal life expectancy. (ACR, 2014) Reviewed by: Rashard Denton MD on 11/11/2022 11:19 AM PST Approved by: Rashard Denton MD on 11/11/2022 11:19 AM PST Station ID: [id number]
[2022-11-11] MEDS ORDERED: AMOXICILLIN 250 MG CAPSULE PO STA (13:28)
--- NOTE | 2022-11-11 15:07 | ED Physician Documentation ---
ED Addendum - Addendum Addendum: 11/11/22 15:[address] Edwards at shift change. Briefly this is a 51-year-old gentleman with significant anemia, reported to me to be guaiac negative. He has received 1 unit of blood. Also has an incidental left lower lobe pneumonia. He is here mostly for dyspnea and weakness. I introduced myself and discussed current plan of care with patient which included 2 units of blood and recheck of H&H and troponin. Note that his troponin is elevated but we presume it is from demand ischemia as he has no chest pain. He declined second unit of blood or repeat check. He understands there is some strain on his heart right now, but really is just happy with the first unit of blood that he has received and request discharge.
[2022-11-11 15:22] VITALS: BP 142/93
[2022-11-11] MEDS ORDERED: iohexoL-300 100 ML VIAL IVP ONE (15:34)
== END 2022-11-11 15:25 | disposition home or self-care (01) ==
LOC: ED 08:52
DX: D64.9 Anemia, unspecified (principal); J18.9 Pneumonia, unspecified organism; R79.89 Other specified abnormal findings of blood chemistry; F17.200 Nicotine dependence, unspecified, uncomplicated
CPT/HCPCS: 36415; 36430; 71045; 71275; 80053; 82272; 83690; 84484; 85025; 85379; 86850; 86900; 86901; 86920; 93005; 96360; 99291; A9270; P9016; Q9967

== ENCOUNTER 2022-11-29 07:53 | Emergency (ER) | payer MEDICAID ==
[2022-11-29] MEDS ORDERED: cefTRIAXone 1 GM in SODIUM CHLORIDE 0.9% MINIBAG 100 ML IV STA (08:45)
[2022-11-29] MEDS ORDERED: AZITHROMYCIN INJ 500 MG in SODIUM CHLORIDE 0.9% 250 ML IV STA (08:45)
[2022-11-29] MEDS ORDERED: SODIUM CHLORIDE 0.9% 1,000 ML IV STA (08:45)
[2022-11-29 08:50] LABS: FECAL OCCULT BLOOD (FIT) NEGATIVE (NEGATIVE)
--- NOTE | 2022-11-29 08:51 | ED Physician Documentation ---
PD HPI DYSPNEA - Stated complaint Stated Complaint: DIZZY - Chief complaint Chief Complaint: General - History obtained from History obtained from: Patient - History of Present Illness Timing - onset: How many days ago (4) Timing - onset during: Light activity Timing - duration: Days (4) Timing - details: Gradual onset, Still present Inciting event(s): URI, Other (hx of pneumonia and symptomtic anemia requiring transfusion) Improved by: Rest Worsened by: Exertion, Coughing Associated symptoms: Cough. No: Fever Similar symptoms before: Diagnosis (symptomatic anemia with pneumonia) Recently seen: Emergency Dept - Additional information Additional information: Yinka burnett is a 51-year-old male who is homeless living in the retirement and has recently been into the emergency department for transfusion of blood with anemia. At that time his stool was negative. He has a history of ulcer and at the time of his evaluation 2 and half weeks ago he had pneumonia in the left lower lobe as well. He returns to the emergency department today with a chief complaint of increasing exertional dyspnea over the past 4 days. He is unable to walk more than 100 feet without excessive excessive shortness of breath. He denies fever. He does state that he continues to cough up white phlegm every morning. He has not been able to get comfortable with his back pain at the retirement and has not been sleeping well. He continues to take his omeprazole he denies use of ibuprofen or Aleve and he denies use of alcohol. He denies any vomiting he denies any black or tarry stool. He states that he did take his amoxicillin that he was prescribed for his pneumonia but he continues to cough unchanged. Review of Systems Constitutional: denies: Fever Eyes: denies: Decreased vision Ears: denies: Ear pain Nose: denies: Rhinorrhea / runny nose, Congestion Throat: denies: Sore throat Cardiac: denies: Chest pain / pressure, Palpitations Respiratory: reports: Dyspnea, Cough, Wheezing. denies: Hemoptysis GI: denies: Abdominal Pain, Nausea, Vomiting, Constipation, Diarrhea, Bloody / black stool : denies: Dysuria, Frequency Skin: denies: Rash Musculoskeletal: reports: Back pain. denies: Neck pain, Extremity pain Neurologic: denies: Generalized weakness, Focal weakness, Numbness PD PAST MEDICAL HISTORY - Past Medical History Past Medical History: Yes Cardiovascular: Hypertension Respiratory: None Neuro: None Endocrine/Autoimmune: None GI: GERD : Kidney stones HEENT: None Psych: Other Musculoskeletal: Chronic back pain Derm: None - Past Surgical History Past Surgical History: Yes General: Colonoscopy - Present Medications Home Medications: Ambulatory Orders Medication Instructions Recorded Confirmed Amitriptyline [Elavil] 25 - 50 mg PO QPM 10/26/20 11/29/22 Albuterol Sulf [Ventolin Hfa 1 - 2 puffs INH Q4HR PRN #1 gm 06/16/22 11/29/22 Inhaler] Duloxetine HCl [Cymbalta] 60 mg ORAL DAILY 11/11/22 11/29/22 Omeprazole 40 mg PO DAILY #30 cap 11/11/22 11/29/22 Potassium Chloride 20 meq PO DAILY 11/11/22 11/29/22 lisinopriL [Lisinopril] 40 mg ORAL DAILY 11/11/22 11/29/22 Amox/Clav 875/125 [Augmentin] 1 each PO Q12H #20 tablet 11/29/22 Azithromycin [Zithromax] 250 mg PO DAILY #4 tablet 11/29/22 - Allergies Allergies/Adverse Reactions: Allergies Allergy/AdvReac Type Severity Reaction Status Date / Time No Known Drug Allergies Allergy Verified 11/29/22 08:01 - Social History Does the pt smoke?: Yes Smoking Status: Current every day smoker Does the pt drink ETOH?: Yes Does the pt have substance abuse?: Yes - Immunizations Immunizations are current?: No Immunizations: TDAP >10years/unknown - POLST Patient has POLST: No PD ED PE NORMAL - Vitals Vital signs reviewed: Yes (tachy and hypertensive mild) - General General: Alert and oriented X 3, No acute distress, Well developed/nourished, Other (pale appearing bearded and masked male in no distress at rest.) - HEENT HEENT: Atraumatic, PERRL, EOMI - Neck Neck: Supple, no meningeal sign, No bony TTP - Cardiac Cardiac: No murmur, Other (tachy to 110) - Respiratory Respiratory: No respiratory distress, Other (loud rhonchi in left base mild in right base) - Abdomen Abdomen: Soft, Non tender - Rectal Rectal: Other (brown stool normal sphincter tone guiac negative) - Derm Derm: Normal color, Warm and dry, No rash - Extremities Extremities: No deformity, No edema - Neuro Neuro: Alert and oriented X 3, tabulating clerk 2-12 intact, No motor deficit, No sensory deficit, Normal speech Eye Opening: Spontaneous Motor: Obeys Commands Verbal: Oriented GCS Score: 15 - Psych Psych: Normal mood, Normal affect Results - Vitals Vitals: Vital Signs - 24 hr 11/29/22 11/29/22 11/29/22 07:56 09:28 10:01 Temperature 36.8 C Heart Rate 106 H 88 86 Heart Rate [ Monitoring electrodes] Respiratory 18 18 16 Rate Blood Pressure 131/80 H 134/94 H Blood Pressure [Right Brachial artery] O2 Saturation 100 97 11/29/22 11/29/22 11/29/22 10:49 11:06 12:00 Temperature 36.9 C 36.9 C 37.0 C Heart Rate 109 H Heart Rate [ 86 87 Monitoring electrodes] Respiratory 24 12 24 Rate Blood Pressure 132/95 H Blood Pressure 129/86 H 124/91 H [Right Brachial artery] O2 Saturation 100 100 100 11/29/22 13:31 Temperature 37.0 C Heart Rate Heart Rate [ 93 Monitoring electrodes] Respiratory 14 Rate Blood Pressure Blood Pressure 122/91 H [Right Brachial artery] O2 Saturation 99 Oxygen O2 Source Room air - Labs Labs: Laboratory Tests 11/29/22 11/29/22 11/29/22 08:15 08:15 08:15 WBC 8.8 RBC 2.91 L Hgb 6.5 L* Hct 23.0 L MCV 79.0 L MCH 22.3 L MCHC 28.3 L RDW 17.7 H Plt Count 441 MPV 9.0 Neut # (Auto) 6.0 Lymph # (Auto) 1.1 L [place] # (Auto) 0.8 Eos # (Auto) 0.8 H Baso # (Auto) 0.1 Absolute Nucleated RBC 0.00 Nucleated RBC % 0.0 PT INR APTT Sodium 133 L Potassium 3.9 Chloride 99 L Carbon Dioxide 23 Anion Gap 11.0 BUN 12 Creatinine 0.6 Estimated GFR (MDRD) 141 Glucose 92 Calcium 9.0 Total Bilirubin 0.6 AST 23 ALT 15 Alkaline Phosphatase 62 Total Protein 7.8 Albumin 4.1 Globulin 3.7 Albumin/Globulin Ratio 1.1 Lipase 38 Stl Occult Blood (IFOB) Blood Type O POSITIVE Antibody Screen NEGATIVE Crossmatch IS Only See Detail 11/29/22 11/29/22 08:39 08:53 WBC RBC Hgb Hct MCV MCH MCHC RDW Plt Count MPV Neut # (Auto) Lymph # (Auto) [place] # (Auto) Eos # (Auto) Baso # (Auto) Absolute Nucleated RBC Nucleated RBC % PT 12.0 INR 1.1 APTT 26.4 Sodium Potassium Chloride Carbon Dioxide Anion Gap BUN Creatinine Estimated GFR (MDRD) Glucose Calcium Total Bilirubin AST ALT Alkaline Phosphatase Total Protein Albumin Globulin Albumin/Globulin Ratio Lipase Stl Occult Blood (IFOB) NEGATIVE Blood Type Antibody Screen Crossmatch IS Only - Rads (name of study) chest 2 view Radiology: Prelim report reviewed (Impression: Mild persistent opacities in the left lower lobe, there is seen on lateral view, likely infection or inflammation. Consider future imaging surveillance to assess for resolution.), EMP read indepedently, See rad report Procedures - IVC sono (time) 0848 Bedside IVC sono: IVC measures (cm) (1.08), IVC collapsed c insp (cm) (complete), Dehydration (est 1-2 liter deficit) PD Medical Decision Making - ED course Complexity details: reviewed old records, reviewed results, re-evaluated patient, considered differential, d/w patient Reviewed Lab Results: We obtained a complete blood count showing a critically low hemoglobin of 6.5 and hematocrit of 23.0 and normal white blood cell count of 8.8 and normal platelets of 441,000. Coagulation studies were unremarkable chemistries were unremarkable with normal electrolytes kidney and liver function and a specimen of stool was sent to the laboratory for occult blood and this was negative. We did find the infiltrate present in the patient's chest x-ray and this appears to be retrocardiac on the left side. It is a subtle finding but present. Social Determinants of Health: Yinka is currently undomiciled and he is living in a retirement. His constraints for today's visit are to make certain he has his transfusion completed before the bus stops running. ED course: 51-year-old Yinka Middleton has developed anemia that is symptomatic again. I reviewed the patient's laboratory values from back in May and found that he has steadily decreased his hemoglobin and hematocrit and required a transfusion last month. Starting back in May his RDW was elevated. He has now developed a microcytic anemia. He has chronic inflammation associated with an infection in his left lower lobe of his lung. We did not obtain iron studies secondary to this. He was treated here in the emergency department with a transfusion of packed red blood cells. The patient has a pneumonia in the left lower lobe that was discovered on CT scanning on his prior visit for transfusion at that time. He was treated with amoxicillin and felt that he did not have improvement. Today we are being more aggressive with his treatment and he is given an injection of Rocephin and azithromycin and we will place patient on Augmentin and azithromycin as an outpatient. Here in the emergency department the patient is also treated with a DuoNeb treatment which does help with his breathing. We still not have a good explanation of this patient's anemia. He tells us he has a history of ulcer he denies any black or tarry stool or bloody stool and on 2 occasions when he has been significantly anemic his stool was tested and was negative. My concern is for the development of a myelodysplastic syndrome and I have asked the patient to follow-up. Departure - Departure Disposition: Home, Self Care Clinical Impression: Anemia Qualifiers: Anemia type: unspecified type Qualified Code(s): D64.9 - Anemia, unspecified Left lower lobe pneumonia Qualifiers: Pneumonia type: due to unspecified organism Qualified Code(s): J18.9 - Pneumonia, unspecified organism Instructions: ED Anemia Type Not Specified, ED Pneumonia Adult Follow-Up: [facility] [place] [Provider Group] Prescriptions: Amox/Clav 875/125 [Augmentin] 1 each PO Q12H #20 tablet Azithromycin [Zithromax] 250 mg PO DAILY #4 tablet Comments: Yinka, today it looks like you have an anemia that has not improved significantly since your last transfusion. We did not find evidence of blood loss today. Studies of your iron stores are indicated and should be done as an outpatient when your pneumonia is improved. An inflammatory condition can alter the results. Pneumonia is an inflammatory condition. For treatment of this pneumonia I have E scribed some Augmentin and azithromycin to the [facility] in [place].You were given similar medicines today by vein and you will not need to start this medicine until tomorrow. Discharge Date/Time: 11/29/22 13:42
[2022-11-29 08:55] LABS: BASOPHILS # (AUTO) 0.1 10^3/uL (0.0-0.1); BASOPHILS % (AUTO) 1.1 %; EOSINOPHILS # (AUTO) 0.8 10^3/uL (0.0-0.7); EOSINOPHILS % (AUTO) 9.1 %; LYMPHOCYTES # (AUTO) 1.1 10^3/uL (1.5-3.5); LYMPHOCYTES % (AUTO) 12.2 %; MEAN CORPUSCULAR HEMOGLOBIN 22.3 pg (27.0-31.0); MEAN CORPUSCULAR HGB CONC 28.3 g/dL (32.0-36.0); MONOCYTES # (AUTO) 0.8 10^3/uL (0.0-1.0); MONOCYTES % (AUTO) 9.1 %; NEUTROPHILS % (AUTO) 68.2 %; PLT - PLATELET COUNT 441 10^3/uL (130-450); RED BLOOD COUNT 2.91 10^6/uL (4.70-6.10); RED CELL DISTRIBUTION WIDTH 17.7 % (12.0-15.0); WHITE BLOOD COUNT 8.8 x10^3/uL (4.8-10.8)
[2022-11-29 08:56] LABS: HGB - HEMOGLOBIN 6.5 g/dL (14.0-18.0)
[2022-11-29 09:03] LABS: INR 1.1 (0.8-1.2)
[2022-11-29 09:04] LABS: ALBUMIN 4.1 g/dL (3.2-5.5); ALBUMIN/GLOBULIN RATIO 1.1 (1.0-2.2); BILIRUBIN,TOTAL 0.6 mg/dL (0.2-1.0); CREATININE 0.6 mg/dL (0.6-1.2); POTASSIUM 3.9 mmol/L (3.5-5.0); TOTAL PROTEIN 7.8 g/dL (6.7-8.2)
[2022-11-29] MEDS ORDERED: IPRATROPIUM/ALBUTEROL 3 ML NEB INH STA (09:10)
[2022-11-29 09:11] LABS: PARTIAL THROMBOPLASTIN TIME 26.4 secs (24.9-33.3)
--- NOTE | 2022-11-29 09:16 | XRAY Report ---
PROCEDURE: Chest 2 View X-Ray INDICATIONS: cough, soa, LLL rhonchi TECHNIQUE: 2 views of the chest were acquired. COMPARISON: 11/11/[address] FINDINGS: Surgical changes and devices: None. Lungs and pleura: Mild left lower lung opacities, better seen on lateral view. No pleural effusions. Mediastinum: Mediastinal contours are normal. Heart size is normal. Suspected hiatal hernia. Bones and chest wall: No suspicious bony abnormalities. Soft tissues appear unremarkable. IMPRESSION: Mild persistent opacities in the left lower lobe, better seen on lateral view, likely infection or in flammation. Consider future imaging surveillance to assess for resolution. Reviewed by: Bandar Oviedo MD on 11/29/2022 9:15 AM PST Approved by: Bandar Oviedo MD on 11/29/2022 9:15 AM PST Station ID: [id number]
[2022-11-29 13:32] VITALS: BP 122/91
== END 2022-11-29 13:42 | disposition home or self-care (01) ==
LOC: ED 07:53
DX: J18.9 Pneumonia, unspecified organism (principal); D50.9 Iron deficiency anemia, unspecified; E86.0 Dehydration; F17.200 Nicotine dependence, unspecified, uncomplicated; Z59.01 Sheltered homelessness
CPT/HCPCS: 36415; 36430; 71046; 80053; 82274; 83690; 85025; 85610; 85730; 86850; 86900; 86901; 86920; 94640; 94664; 96365; 96367; 99284; 99285; P9016

== ENCOUNTER 2022-12-16 07:45 | Outpatient (CLI) | payer MEDICAID ==
[2022-12-16 12:47] LABS: BASOPHILS # (AUTO) 0.1 10^3/uL (0.0-0.1); BASOPHILS % (AUTO) 1.6 %; EOSINOPHILS # (AUTO) 0.4 10^3/uL (0.0-0.7); EOSINOPHILS % (AUTO) 6.2 %; HCT - HEMATOCRIT 26.4 % (42.0-52.0); HGB - HEMOGLOBIN 7.7 g/dL (14.0-18.0); LYMPHOCYTES # (AUTO) 0.8 10^3/uL (1.5-3.5); LYMPHOCYTES % (AUTO) 13.6 %; MEAN CORPUSCULAR HEMOGLOBIN 22.1 pg (27.0-31.0); MEAN CORPUSCULAR HGB CONC 29.2 g/dL (32.0-36.0); MEAN CORPUSCULAR VOLUME 75.6 fL (80.0-94.0); MEAN PLATELET VOLUME 9.3 fL (7.4-11.4); MONOCYTES # (AUTO) 0.6 10^3/uL (0.0-1.0); MONOCYTES % (AUTO) 9.7 %; NEUTROPHILS % (AUTO) 68.6 %; PLT - PLATELET COUNT 414 10^3/uL (130-450); RED BLOOD COUNT 3.49 10^6/uL (4.70-6.10); RED CELL DISTRIBUTION WIDTH 19.8 % (12.0-15.0); WHITE BLOOD COUNT 5.8 x10^3/uL (4.8-10.8)
[2022-12-16 13:24] LABS: ALBUMIN 4.2 g/dL (3.2-5.5); ALKALINE PHOSPHATASE 57 IU/L (42-121); ALT ALANINE AMINOTRANSFERASE 12 IU/L (10-60); AST ASPARTATE AMINOTRANSFERASE 25 IU/L (10-42); BILIRUBIN,TOTAL 0.9 mg/dL (0.2-1.0); BUN - BLOOD UREA NITROGEN 13 mg/dL (6-20); CALCIUM 9.4 mg/dL (8.5-10.3); CARBON DIOXIDE - CO2 24 mmol/L (21-32); CHLORIDE 101 mmol/L (101-111); CREATININE 0.6 mg/dL (0.6-1.2); GFR - MDRD 141 (>89); GLUCOSE 113 mg/dL (70-100); POTASSIUM 3.8 mmol/L (3.5-5.0); SODIUM 134 mmol/L (135-145); TOTAL PROTEIN 8.3 g/dL (6.7-8.2)
[2022-12-16 13:42] LABS: CRP - C-REACTIVE PROTEIN < 1.0 mg/dL (0-1.0)
== END 2022-12-16 08:00 | disposition home or self-care (01) ==
LOC: LAB.N 07:45
PROVIDERS: ATTEND Registered Nurse
DX: E87.1 Hypo-osmolality and hyponatremia (principal); D50.9 Iron deficiency anemia, unspecified; J18.9 Pneumonia, unspecified organism; Z59.00 Homelessness unspecified
CPT/HCPCS: 36415; 80053; 85025; 86140

== ENCOUNTER 2022-12-23 09:40 | Observation (INO) | payer MEDICAID ==
[2022-12-23 10:25] LABS: BASOPHILS # (AUTO) 0.1 10^3/uL (0.0-0.1); BASOPHILS % (AUTO) 0.8 %; EOSINOPHILS # (AUTO) 0.1 10^3/uL (0.0-0.7); EOSINOPHILS % (AUTO) 1.4 %; LYMPHOCYTES % (AUTO) 15.7 %; MEAN CORPUSCULAR HGB CONC 28.5 g/dL (32.0-36.0); MEAN CORPUSCULAR VOLUME 77.4 fL (80.0-94.0); MEAN PLATELET VOLUME 8.5 fL (7.4-11.4); MONOCYTES # (AUTO) 0.6 10^3/uL (0.0-1.0); MONOCYTES % (AUTO) 9.6 %; NEUTROPHILS # (AUTO) 4.6 10^3/uL (1.5-6.6); NEUTROPHILS % (AUTO) 71.9 %; PLT - PLATELET COUNT 322 10^3/uL (130-450); RED BLOOD COUNT 1.86 10^6/uL (4.70-6.10); RED CELL DISTRIBUTION WIDTH 21.2 % (12.0-15.0); WHITE BLOOD COUNT 6.4 x10^3/uL (4.8-10.8)
[2022-12-23 10:29] LABS: HCT - HEMATOCRIT 14.4 % (42.0-52.0); HGB - HEMOGLOBIN 4.1 g/dL (14.0-18.0); SLIDE REVIEW? Indicated
[2022-12-23 10:32] LABS: INR 1.1 (0.8-1.2); PT - PROTHROMBIN TIME 12.3 secs (9.9-12.6)
[2022-12-23] MEDS ORDERED: PANTOPRAZOLE 40 MG VIAL IVP STA (10:36)
[2022-12-23 10:39] LABS: PARTIAL THROMBOPLASTIN TIME 21.7 secs (24.9-33.3)
[2022-12-23 10:45] LABS: ALBUMIN 3.7 g/dL (3.2-5.5); ALBUMIN/GLOBULIN RATIO 1.2 (1.0-2.2); BILIRUBIN,TOTAL 0.7 mg/dL (0.2-1.0); CALCIUM 8.8 mg/dL (8.5-10.3); CREATININE 0.6 mg/dL (0.6-1.2); POTASSIUM 3.7 mmol/L (3.5-5.0); TOTAL PROTEIN 6.8 g/dL (6.7-8.2)
[2022-12-23 10:47] LABS: PLATELET ESTIMATE, MANUAL NORMAL (130-450,000) (NORMAL); PLATELET MORPHOLOGY NORMAL APPEARANCE (NORMAL); WBC MORPHOLOGY (MULTIPLE) NORMAL APPEARANCE (NORMAL)
--- NOTE | 2022-12-23 10:47 | XRAY Report ---
PROCEDURE: Chest 1 View X-Ray INDICATIONS: Chest Pain TECHNIQUE: One view of the chest was acquired. COMPARISON: Chest x-ray 11/29/2022 FINDINGS: Surgical changes and devices: None. Lungs and pleura: No pleural effusions or pneumothorax. Lungs are clear. Costophrenic angles are not included in the [id number] and cannot be evaluated. Mediastinum: Mediastinal contours appear normal. Heart size is normal. Bones and chest wall: No suspicious bony lesions. Overlying soft tissues appear unremarkable. IMPRESSION: No acute pulmonary process, noting lack of evaluation of costophrenic angles bilaterally Reviewed by: Criss Harper MD on 12/23/2022 10:45 AM [facility] Approved by: Criss Harper MD on 12/23/2022 10:45 AM [facility] Station ID: [id number]
--- NOTE | 2022-12-23 10:51 | ED Physician Documentation ---
History of Present Illness - Stated complaint Stated Complaint: SOA - Chief complaint Chief Complaint: Resp - History obtained from History obtained from: Patient - History of Present Illness Timing: How many weeks ago (2) Pain level max: 0 Pain level now: 0 - Additonal information Additional information: 52-year-old male presents to the emergency department with ongoing weakness, increasing over the past 2 weeks. He states he had a blood transfusion about a month ago. Unclear cause of the anemia. He had a reportedly normal colonoscopy in October [address] Ken. He states that he did drink alcohol heavily until about 1 year ago. Has never been told that he has had varices. He states he does believe that he has had a ulcer in the past. Denies any NSAID use. He states he did have a dark stool today and last night but he attributed that to beef jerky. Negative fecal occult blood test last month. Review of Systems Constitutional: denies: Fever, Chills Nose: denies: Rhinorrhea / runny nose, Congestion Respiratory: denies: Cough GI: denies: Nausea, Vomiting, Diarrhea Skin: denies: Rash Musculoskeletal: denies: Neck pain, Back pain Neurologic: denies: Headache PD PAST MEDICAL HISTORY - Past Medical History Past Medical History: Yes Cardiovascular: Hypertension Respiratory: COPD Neuro: None Endocrine/Autoimmune: None GI: GERD, GI bleed : Kidney stones HEENT: None Psych: Depression, Other Musculoskeletal: Osteoarthritis, Chronic back pain Derm: None - Past Surgical History Past Surgical History: Yes General: Colonoscopy - Present Medications Home Medications: Ambulatory Orders Medication Instructions Recorded Confirmed Amitriptyline [Elavil] 25 - 50 mg PO QPM 10/26/20 12/23/22 Albuterol Sulf [Ventolin Hfa 1 - 2 puffs INH Q4HR PRN #1 gm 06/16/22 12/23/22 Inhaler] Duloxetine HCl [Cymbalta] 60 mg ORAL DAILY 11/11/22 12/23/22 Omeprazole 40 mg PO DAILY #30 cap 11/11/22 12/23/22 Potassium Chloride 20 meq PO DAILY 11/11/22 12/23/22 lisinopriL [Lisinopril] 20 mg PO DAILY 11/11/22 12/23/22 - Allergies Allergies/Adverse Reactions: Allergies Allergy/AdvReac Type Severity Reaction Status Date / Time No Known Drug Allergies Allergy Verified 12/23/22 09:51 - Social History Does the pt smoke?: Yes Smoking Status: Current every day smoker Does the pt drink ETOH?: Yes ETOH Use: Beer Does the pt have substance abuse?: Yes Substance Use and Type: Marijuana - Immunizations Immunizations are current?: No Immunizations: TDAP >10years/unknown - POLST Patient has POLST: No PD ED PE NORMAL - Vitals Vital signs reviewed: Yes - General General: Alert and oriented X 3, No acute distress, Other (pale appearing) - HEENT HEENT: PERRL, Moist mucous membranes - Neck Neck: Supple, no meningeal sign - Cardiac Cardiac: RRR, Strong equal pulses - Respiratory Respiratory: No respiratory distress, Clear bilaterally - Abdomen Abdomen: Soft, Non tender, Non distended - Rectal Rectal: Pt declined - Derm Derm: Warm and dry, No rash - Extremities Extremities: No edema - Neuro Neuro: Alert and oriented X 3 - Psych Psych: Normal mood, Normal affect Results - Vitals Vitals: Vital Signs - 24 hr 12/23/22 09:44 Temperature 36.9 C Heart Rate 118 H Respiratory 32 H Rate Blood Pressure 130/72 O2 Saturation 100 Oxygen O2 Source Room air - EKG (time done) 1000 Rate: Rate (enter#) (107) Rhythm: Sinus tachycardia Raymond: Normal Intervals: Normal LA QRS: Normal Ischemia: Normal ST segments - Labs Labs: Laboratory Tests 12/23/22 12/23/22 12/23/22 10:13 10:13 10:13 WBC 6.4 RBC 1.86 L Hgb 4.1 L* Hct 14.4 L* MCV 77.4 L MCH 22.0 L MCHC 28.5 L RDW 21.2 H Plt Count 322 MPV 8.5 Neut # (Auto) 4.6 Lymph # (Auto) 1.0 L [place] # (Auto) 0.6 Eos # (Auto) 0.1 Baso # (Auto) 0.1 Absolute Nucleated RBC 0.00 Nucleated RBC % 0.0 Manual Slide Review Indicated WBC Morphology NORMAL APPEARANCE Platelet Estimate NORMAL (130-450,000) Platelet Morphology NORMAL APPEARANCE RBC Morph Micro Appear 3+ HYPOCHROMASIA PT INR APTT Sodium 136 Potassium 3.7 Chloride 106 Carbon Dioxide 19 L Anion Gap 11.0 BUN 18 Creatinine 0.6 Estimated GFR (MDRD) 141 Glucose 105 H Calcium 8.8 Iron 8 L TIBC 489 H % Saturation 2 L Transferrin 349 H Total Bilirubin 0.7 AST 22 ALT 11 Alkaline Phosphatase 41 L Troponin I High Sens 7.8 Total Protein 6.8 Albumin 3.7 Globulin 3.1 Albumin/Globulin Ratio 1.2 Lipase 38 Blood Type Antibody Screen Crossmatch IS Only 12/23/22 12/23/22 10:13 10:13 WBC RBC Hgb Hct MCV MCH MCHC RDW Plt Count MPV Neut # (Auto) Lymph # (Auto) [place] # (Auto) Eos # (Auto) Baso # (Auto) Absolute Nucleated RBC Nucleated RBC % Manual Slide Review WBC Morphology Platelet Estimate Platelet Morphology RBC Morph Micro Appear PT 12.3 INR 1.1 APTT 21.7 L Sodium Potassium Chloride Carbon Dioxide Anion Gap BUN Creatinine Estimated GFR (MDRD) Glucose Calcium Iron TIBC % Saturation Transferrin Total Bilirubin AST ALT Alkaline Phosphatase Troponin I High Sens Total Protein Albumin Globulin Albumin/Globulin Ratio Lipase Blood Type O POSITIVE Antibody Screen NEGATIVE Crossmatch IS Only See Detail PD Medical Decision Making - ED course Complexity details: reviewed results, re-evaluated patient, considered glenys root, d/w patient, d/w rehab consultant ED course: 52-year-old male with what appears to be a GI bleed, likely upper. He has significant anemia, hemoglobin of 4. He is short of breath with exertion. He has had a colonoscopy approximately 2 years ago but never an endoscopy. He does believe he has a history of ulcers. Has a history of alcohol use, but states quit drinking about a year ago. No history of varices that he is aware of. Given IV Protonix here. Discussed the case with Dr. Ken, general surgery who will come and evaluate the patient on the floor and consult. Discussed the case with Dr. Brown, hospitalist who accepts. This document was made in part using voice recognition software. While efforts are made to proofread this document, sound alike and grammatical errors may occur. Departure - Departure Disposition: ED Place in Observation Clinical Impression: Anemia Qualifiers: Anemia type: unspecified type Qualified Code(s): D64.9 - Anemia, unspecified Condition: Stable Discharge Date/Time: 12/23/22 12:35
[2022-12-23] MEDS ORDERED: MORPHINE 2 MG/ML CARPUJECT IVP PRN (11:31)
[2022-12-23] MEDS ORDERED: ONDANSETRON ODT 4 MG TABLET TL PRN (11:31)
[2022-12-23] MEDS ORDERED: ONDANSETRON 4 MG/2 ML VIAL IVP PRN (11:31)
[2022-12-23] MEDS ORDERED: SODIUM CHLORIDE FLUSH 0.9% 10 ML SYRINGE IVP PRN (11:31)
--- NOTE | 2022-12-23 11:50 | HISTORY & PHYSICAL EXAMINATION ---
Chief Complaint - Chief Complaint Chief Complaint: tarry stool and dizzy History of Present Illness - Admitted From Admitted From:: home via ER - History Obtained [facility] History obtained from: Patient Exam Limitations: none - History of Present Illness HPI Comment/Other: He presented to the emergency room this morning via private vehicle from homeless fpc because has been short of breath for about 2 months. It is worse with ambulation and okay when he sitting down. He is exhausted, has no energy to do anything and when he tries to do anything his heart rate just hurts to raise. He has no cardiac or pulmonary history. No history of COPD or asthma. He denies chest pain and the palpitations are only with his heart racing. No edema, no orthopnea. The last time he felt this tired he was told that he had anemia and required a blood transfusion. He has a history of alcoholism and peptic ulcer disease. In October 2020 he was referred to general surgery for colonoscopy. At that time there is no melena, bright red blood per rectum it appears to be a screening colonoscopy. He underwent a colonoscopy in November 10, 2020 and there was moderate diverticulosis in the sigmoid bowel, ascending colon and sessile polyps found in the ascending colon, transverse colon and sigmoid colon. Ascending colon had a sessile adenoma negative for dysplasia and carcinoma. Transverse colon had a tubular adenoma negative for high-grade dysplasia and carcinoma. Sigmoid colon had a tubular adenoma negative for high-grade dysplasia and carcinoma. Hemoglobin done February 2021 was 14. The patient has chronic back pain and was seen by orthopedic surgery in April 2021. Pain had been increasing for 3 years especially since he works in [employer]. He uses alcohol of half a bottle of hard alcohol a day to control the pain. MRI has degenerative changes, and treatment consisted of PT, and epidural steroid injection. He was not a candidate for surgery. He has done PT in the past but it hurt so much he doesn't want to do it again. He was then referred to [facility] pain management in [place] I am with see there about 3 times. Physical therapy was again recommended since he is not a surgical candidate. They felt they were limited in giving him prescriptions because of his daily alcohol use. Gabapentin was considered and not given because of the alcohol. He was again considered for and left L5 transforaminal Binosto injection but only after CBC and platelets were done. That last visit was October 2021. In September he started reporting via phone calls to his primary care provider office that he was having blood when he went to the bathroom. He never showed up for his visits. He then went to the walk-in clinic November 11, 2022 complaining of severe dizziness and he felt like his heart was coming out of his chest. He was short of breath, tired, dizzy, dyspneic on exertion. With that visit he reported that he been sober for 5 years even though the previous month he was still telling people he was drinking half a pint a day. He was sent to the emergency room. CBC visit showed a hemoglobin of 6.2. CT pulmonary angiogram was done to make sure he was not having a PE and he had a patchy interstitial infiltrate, basal segments of the left lower lobe was new he shared with the ER provider that he was noticing black stools off and on. Stool was fecal occult blood negative that day. He received blood in the ER, and was started on antibiotics because of the patchy infiltrate on CT angiogram. He was seen in the clinic again on November 19, wanting a letter to be able to stay in the fpc. With that visit, the differential diagnosis for his anemia including dizziness, benign positional vertigo, TIA, stroke, electrolyte imbalance, dehydration, trigeminal neuralgia, brain tumor, sinusitis. And they discussed transfusing him more but no further follow-up for the anemia and not transfusion ordered. No EGD or colonoscopy was discussed. He was then again seen in the clinic December 16 because of continued shortness of breath cough. He did finish the antibiotics given to him previously. He had stopped taking his lisinopril because his blood pressure was so low. Hemoglobin with that visit was 7.7. The focus was on treating his community-acquired pneumonia and they refilled his albuterol and omeprazole, got a chest x-ray and started him on iron. No referral for EGD. He now returns to the emergency room today because he is so tired. Black tarry stools started last night. No abdominal pain. No fevers or chills. He states his appetite has been on and off. He does not think he is lost any weight. At least he does not feel like he has. He has been having sweats at night for the last 6 or 7 months where he soaks his close and he soaks his hat. He does not take any nonsteroidals. He drinks about 6-8 beers a week. He had his last 2 beers last night and they were 25 oz [place]. Temperature 36.9. Heart rate 118. Blood pressure 130/72. Respirations 32 any to 100% on room air. Has a disheveled bearded male, alert and oriented. Hemoglobin is 4.1, hematocrit 14.4. Platelets are 322. Iron is 8, TIBC is 489, transferrin is 349, troponin is 7.8. General surgery has been consulted. They agreed to see the patient for an EGD and that I admit the patient to the hospitalist service. As such I am placing him in observation for transfusion of blood, surgical consult, and EGD History - Past Medical History Cardiovascular: reports: Hypertension Respiratory: reports: COPD (with chronic cough) Neuro: reports: None Endocrine/Autoimmune: reports: None GI: reports: GERD, GI bleed, Pancreatitis (2016) : reports: Retention (sciatica and DDD, declines PT and LESI), Kidney stones HEENT: reports: Other (hx of otitis) Psych: reports: Depression, Other Musculoskeletal: reports: Osteoarthritis, Chronic back pain Derm: reports: None MRSA Hx?: No Other Past Medical History: Illiteracy, homeless, alcoholism, scabies - Past Surgical History General: reports: Colonoscopy - Family & Social History Family History Comment/Other: Father's history of alcoholism, and has had an [place] when he was younger in his 50s. of parenchmal brain hemorrhage 5 months ago. Mom is still alive in her 70s and has no medical issues as far as he knows. Siblings: 1 brother in a boating accident, 1 sister is healthy and no issues. Children: 1 son is in the [employer] and healthy, no issues Living arrangement: Homeless Living Situation: Other (Nighttime fpc.) Social History Notes: Smoked 2 packs/day for 40 years and has an [id number] history. Currently does tobacco chewing and rolls his own tobacco. Quit hard alcohol 1-1/2 years ago and was drinking half a pint/day. Now 2 beers a day, sometimes none. Denies cocaine, heroin, LSD, speed. Does use cannibus. Homeless, spends nighttime in a fpc,daytime in [employer] or in the park on a day. - POLST Patient has POLST: No POLST Status: Full Code Meds/Allgy - Home Medications Home Medications: Ambulatory Orders Medication Instructions Recorded Confirmed Amitriptyline [Elavil] 25 - 50 mg PO QPM 10/26/20 12/23/22 Albuterol Sulf [Ventolin Hfa 1 - 2 puffs INH Q4HR PRN #1 gm 06/16/22 12/23/22 Inhaler] Duloxetine HCl [Cymbalta] 60 mg ORAL DAILY 11/11/22 12/23/22 Omeprazole 40 mg PO DAILY #30 cap 11/11/22 12/23/22 Potassium Chloride 20 meq PO DAILY 11/11/22 12/23/22 lisinopriL [Lisinopril] 40 mg ORAL DAILY 11/11/22 12/23/22 - Allergies Allergies/Adverse Reactions: Allergies Allergy/AdvReac Type Severity Reaction Status Date / Time No Known Drug Allergies Allergy Verified 12/23/22 09:51 Review of Systems - Constitutional Constitutional: reports: Fatigue, Malaise, Weakness, Diaphoresis - Eyes Eyes: reports: Vision loss - Ears, Nose & Throat Ears, Nose & Throat: reports: Ear pain, Vertigo, Nasal obstruction, Nasal congestion, Postnasal drainage, Dental decay - Cardiovascular Cariovascular: reports: Palpitations, Lightheadedness, Exertional dyspnea, Decr. exercise tolerance. denies: Irregular heart rate, Chest pain, Orthopnea - Respiratory Respiratory: reports: Cough (Daily for years now. Mornings are the worst.), Sputum production (Daily but mainly in the morning.), Wheezing (If chest congestion gets to severe, does not use inhalers right now), SOB at rest, SOB with exertion. denies: Hemoptysis, Orthopnea - Gastrointestinal Gastrointestinal: reports: Change in bowel habits, Rectal bleeding, Black stools, Bloody stools, Poor appetite (Off and on. There are days that he eats everything, and days he just has no appetite.). denies: Abdominal pain, Abdominal distention, Constipation, Diarrhea, Vomiting, Coffee grounds emesis, Reflux/heartburn - Genitourinary Genitourinary: reports: Frequency, Urgency, Incontinence, Nocturia (Sometimes up to 5 times a night and he cannot get any sleep). denies: Dysuria - Musculoskeletal Musculoskeletal: reports: Muscle aches, Joint pain - Integumentary Integumentary: reports: Rash, Other (Scabies in the last year) - Neurological Neurological: reports: General weakness, Dizziness. denies: Focal weakness, Headache - Psychiatric Psychiatric: reports: Depression. denies: Anxiety, Suicidal - Endocrine Endocrine: reports: Intolerance to cold. denies: Polyuria, Polydypsia - Hematologic/Lymphatic Hematologic/Lymphatic: reports: Anemia. denies: Bruising, Petechiae, Blood clots Prior Level of Functionality: He is usually able to walk, dress himself, feed himself. Does not use any durable medical equipment Exam - Vital Signs Reviewed Vital Signs: Yes Vital Signs: Vital Signs x48h Temp Pulse Resp BP Pulse Ox 12/23/22 09:44 36.9 C 118 H 32 H 130/72 100 - Physical Exam General Appearance: positive: No acute distress, Alert, Other (Gravelly voice, middle-age man, bearded and disheveled, lucid historian, normal speech pattern. Smells of cigarettes.) Eyes Bilateral: positive: PERRL, EOMI ENT: positive: Dry mucous membranes, Other (Bad dentition) Neck: positive: No JVD, Lymphadenopathy (R), Lymphadenopathy (L) (Shotty) Respiratory: positive: No respiratory distress, Other (Barrel chest with prolonged and exhalation. No outright wheezing. During the exam has occasional cough that brings up yellowish phlegm). negative: Wheezes, Rales, Rhonchi Cardiovascular: positive: Regular rate & rhythm. negative: Systolic murmur Peripheral Pulses: positive: 1+ Abdomen: positive: Non-tender, No organomegaly, Nml bowel sounds, No distention Skin: positive: Warm, Dry, Other (Nicotine stained fingertips.) Extremities: positive: Full ROM, Nml appearance, No pedal edema Neurologic/Psychiatric: positive: Oriented x3, CN's nml (2-12), Motor nml Conclusion/Plan - Problem List (1) Acute on chronic blood loss anemia Conclusion/Plan: Differential diagnosis would include peptic ulcer disease, esophageal varices and alcoholic, AVM, gastric ectasia, neoplasm.The emergency room provider presented the patient to me and we discussed the case. Although the patient has told previous people that he is sober, he shares with the ER doctor that he still has a history of drinking. As such this gentleman could still have peptic ulcer disease that is gone untreated, and less likely a lower GI source since he just had a colonoscopy in 2020. Besides peptic ulcer disease we also need to consider esophageal variceal bleed. Possibly vascular ectasia. He could have alcoholic gastritis. Plan: Observation status Every 6 hour hemogram General surgery consult for EGD Transfusion to achieve hemoglobin greater than 7 g Iron supplementation Empiric Protonix IV push daily N.p.o. until EGD (2) Chronic back pain Conclusion/Plan: He has been seen by the pain center 3 times in [place]. He needs to follow-up with them if he wants to get prescription medications, and will need to follow-up with regular PT to start therapy as an initial step. He really does not want to do the physical therapy. It was a nightmare that first few sessions he did 10 years ago. It gave him even worse back pain. He does not know if he is get a follow-up. He is also worried because I am telling him he cannot drink beer now he does not know what he is going to do to control his back pain. Qualifiers: Back pain location: low back pain Back pain laterality: left Sciatica presence: with sciatica Sciatica laterality: sciatica of left side Qualified Code(s): M54.42 - Lumbago with sciatica, left side; G89.29 - Other chronic pain (3) Alcoholism Conclusion/Plan: He regards himself is a clean and sober alcoholic for the last year and a half.He no longer drinks "the hard stuff". He does not regard beer as alcohol. CBC does not show macrocytosis. Plan: vitamins Thiamine A little bit of education was provided to the patient. I told him that I was really sorry, but he really could not drink beer anymore. Alcohol is present in beer and we do consider it a problem. He was very sad that he cannot drink his beer anymore because he loves it. 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 Throughout his back probably 10 years ago. Has not been able to work since and has been on disability. He used to have his own apartment, or lived with his mom. With dad dying 5 months ago, mom moved back to her home state of [place]. He cannot live with his mom because he just does not want to move that far away from here. He cannot live w ith his sister because she has a very small place and he does not really want to have to pay the rent. So right now he sleeps at the fpc at night. Spends his days at the [employer] caf. Hanging out with some marine friends. Does weed. He is on a list for subsidized housing. Lives off his disability. (5) Tobacco abuse Conclusion/Plan: EXTRHe usually does not go through withdrawals. Heavily. I will order a nicotine patch at 7 mg a day (6) Urinary retention Conclusion/Plan: My suspicion that he is with prostatism from benign prostatic hypertrophy. On top of that he then takes Elavil at night which is an anticholinergic and will make this worse. I will let his primary care provider tease out whether stop ping Elavil is all they need to do. I will start Flomax. Send him home with a new prescription - Lab Results Lab results reviewed: Yes Fish Bones: 12/23/22 10:13 12/23/22 10:13 - Diagnostic Imaging Results Diagnostic Imaging Results: positive: Final report reviewed Diagnostic Imaging Results Comments: Chest x-ray has no acute cardiopulmonary process, costophrenic angles were not included in the [id number] and could not be evaluated.
[2022-12-23] MEDS ORDERED: ALBUTEROL NEB 2.5 MG/3 ML INH PRN (14:59)
--- NOTE | 2022-12-23 15:05 | PHARMACY PROGRESS NOTE ---
- Best Possible Medication History Admit Date and Time: 12/23/22 1131 Processed by: Nursing Medication History completed: Yes Secondary Source(s): Insurance records As the person ultimately responsible for medication therapy, providers are able to order a medication from an existing home medication list in [facility] via the "Reconcile Routine" prior to Confirmation of that medication by technical support director. Such practice is discouraged except when the physician, in their clinical judgment, deems that a medical need exists for a medication without regard to previous use.
[2022-12-23] MEDS: NICOTINE 7 MG PATCH TOP SCH (15:59)
--- NOTE | 2022-12-23 16:08 | CONSULTATION NOTE ---
Referring Provider Consult Date: 12/23/22 Chief Complaint - Chief Complaint Chief Complaint: weak and short of breath History of Present Illness - History Obtained From Records Reviewed: yes History obtained from: pt Exam Limitations: none - History of Present Illness HPI Comment/Other: weak and short of breath. has been getting worse. seen in the ED with worsening anemia. he has not noticed blood loss. He has occasional heartburn. no other gi symptoms colonoscopy 10/2020 3 polyps and diffuse diverticulosis History - Past Medical History Cardiovascular: reports: Hypertension Respiratory: reports: COPD (with chronic cough) Neuro: reports: None Endocrine/Autoimmune: reports: None GI: reports: GERD, GI bleed, Pancreatitis (2016) : reports: Retention (sciatica and DDD, declines PT and LESI), Kidney stones HEENT: reports: Other (hx of otitis) Psych: reports: Depression, Other Musculoskeletal: reports: Osteoarthritis, Chronic back pain Derm: reports: None MRSA Hx?: No Other Past Medical History: Illiteracy, homeless, alcoholism, scabies - Past Surgical History General: reports: Colonoscopy HEENT: reports: Rhinoplasty - Family & Social History Family History Comment/Other: Father's history of alcoholism, and has had an UT when he was younger in his 50s. of parenchmal brain hemorrhage 5 months ago. Mom is still alive in her 70s and has no medical issues as far as he knows. Siblings: 1 brother in a boating accident, 1 sister is healthy and no issues. Children: 1 son is in the [employer] and healthy, no issues Living arrangement: Homeless Living Situation: Other (Nighttime snf.) Social History Notes: Smoked 2 packs/day for 40 years and has an [id number] history. Currently does tobacco chewing and rolls his own tobacco. Quit hard alcohol 1-1/2 years ago and was drinking half a pint/day. Now 2 beers a day, sometimes none. Denies cocaine, heroin, LSD, speed. Does use cannibus. Homeless, spends nighttime in a snf,daytime in [employer] or in the park on a nice day. - POLST Patient has POLST: No POLST Status: Full Code Meds/Allgy - Home Medications Home Medications: Ambulatory Orders Medication Instructions Recorded Confirmed Amitriptyline [Elavil] 25 - 50 mg PO QPM 10/26/20 12/23/22 Albuterol Sulf [Ventolin Hfa 1 - 2 puffs INH Q4HR PRN #1 gm 06/16/22 12/23/22 Inhaler] Duloxetine HCl [Cymbalta] 60 mg ORAL DAILY 11/11/22 12/23/22 Omeprazole 40 mg PO DAILY #30 cap 11/11/22 12/23/22 Potassium Chloride 20 meq PO DAILY 11/11/22 12/23/22 lisinopriL [Lisinopril] 20 mg PO DAILY 11/11/22 12/23/22 - Allergies Allergies/Adverse Reactions: Allergies Allergy/AdvReac Type Severity Reaction Status Date / Time No Known Drug Allergies Allergy Verified 12/23/22 09:51 Review of Systems - Other Findings Other Findings: 10 pt ros as above otherwise unremarkable Exam - Vital Signs Reviewed Vital Signs: Yes Vital Signs: Vital Signs x48h Temp Pulse Pulse Resp BP BP Pulse Ox 12/23/22 15:42 37.2 C 99 19 111/72 100 12/23/22 15:22 37.2 C 95 19 111/72 100 12/23/22 12:54 104 H 16 121/94 H 99 12/23/22 12:29 36.8 C 95 15 118/74 100 12/23/22 11:59 37.3 C 100 19 113/60 99 12/23/22 09:44 36.9 C 118 H 32 H 130/72 100 - Physical Exam General Appearance: positive: No acute distress, Alert Eyes Bilateral: positive: PERRL, No scleral icterus ENT: positive: No signs of dehydration Neck: positive: No JVD, Trachea midline Respiratory: positive: No respiratory distress Cardiovascular: positive: Regular rate & rhythm Abdomen: positive: Non-tender, No distention Neurologic/Psychiatric: positive: Oriented x3 Conclusion/Plan - Problem List (1) Acute on chronic blood loss anemia Conclusion/Plan: no apparent blood loss; however, much more anemic than blood draw several weeks ago. agree with care and plan plan egd in am. - Lab Results Lab results reviewed: Yes Fish Bones: 12/23/22 10:13 12/23/22 10:13
[2022-12-23] MEDS: SODIUM CHLORIDE FLUSH 0.9% 10 ML SYRINGE IVP SCH ×2 (18:16→21:55)
[2022-12-23] MEDS ORDERED: AMITRIPTYLINE 25 MG TABLET PO SCH (21:00)
[2022-12-23] MEDS: TAMSULOSIN 0.4 MG CAPSULE PO SCH (21:15)
[2022-12-23] MEDS: SODIUM CHLORIDE 0.9% 1,000 ML IV SCH (21:55)
[2022-12-23 23:39] LABS: HCT - HEMATOCRIT 21.6 % (42.0-52.0)
[2022-12-23 23:42] LABS: HGB - HEMOGLOBIN 6.7 g/dL (14.0-18.0)
--- NOTE | 2022-12-24 00:11 | PROVIDER PROGRESS NOTE ---
Associate Pastor Note - Associate Pastor Note Associate Pastor Note: HGB after 3 units PRBCs is 6.7 will transfuse another unit of prbc
[2022-12-24] MEDS: SODIUM CHLORIDE 0.9% 1,000 ML IV SCH (04:01)
[2022-12-24 06:45] LABS: HCT - HEMATOCRIT 25.4 % (42.0-52.0)
[2022-12-24] MEDS ORDERED: PANTOPRAZOLE 40 MG VIAL IVP SCH (07:00)
--- NOTE | 2022-12-24 08:48 | PROVIDER PROGRESS NOTE ---
Subjective - Prog Note Date Prog Note Date: 12/24/22 - Subjective Pt reports feeling: Improved (feeling much better. no bm since admit) Objective - Vital Signs/Intake & Output Reviewed Vital Signs: Yes Vital Signs: Vital Signs x48h Temp Pulse Resp BP Pulse Ox 12/24/22 07:35 36.9 C 93 18 138/97 H 98 12/24/22 03:49 36.9 C 81 16 125/88 H 97 12/24/22 01:50 36.9 C 86 16 133/88 H 98 12/24/22 01:33 36.8 C 88 16 123/92 H 97 12/24/22 01:04 36.8 C 90 16 123/92 H 97 Intake & Output: Intake & Output 12/21/22 12/22/22 12/23/22 12/24/22 23:59 23:59 23:59 23:59 Intake Total 1332.083 746.417 Output Total 750 875 Balance 582.083 -128.583 - Objective General Appearance: positive: No acute distress, Alert Eyes Bilateral: positive: PERRL, EOMI, No scleral icterus Neck: positive: No JVD, Trachea midline Respiratory: positive: No respiratory distress Abdomen: positive: Non-tender, No distention Neurologic/Psychiatric: positive: Oriented x3 - Lab Results Fish Bones: 12/24/22 06:27 12/23/22 10:13 Other Labs: Lab Results x24hrs 12/24/22 12/23/22 12/23/22 Range/Units 06:27 23:32 10:13 WBC (4.8-10.8) x10^3/uL RBC (4.70-6.10) 10^6/uL Hgb 8.0 L 6.7 L* (14.0-18.0) g/dL Hct 25.4 L 21.6 L (42.0-52.0) % MCV (80.0-94.0) fL MCH (27.0-31.0) pg MCHC (32.0-36.0) g/dL RDW (12.0-15.0) % Plt Count (130-450) 10^3/uL MPV (7.4-11.4) fL Neut # (Auto) (1.5-6.6) 10^3/uL Lymph # (Auto) (1.5-3.5) 10^3/uL [place] # (Auto) (0.0-1.0) 10^3/uL Eos # (Auto) (0.0-0.7) 10^3/uL Baso # (Auto) (0.0-0.1) 10^3/uL Absolute Nucleated RBC x10^3/uL Nucleated RBC % /100WBC Manual Slide Review WBC Morphology (NORMAL) Platelet Estimate (NORMAL) Platelet Morphology (NORMAL) RBC Morph Micro Appear (NORMAL) PT (9.9-12.6) secs INR (0.8-1.2) APTT (24.9-33.3) secs Sodium (135-145) mmol/L Potassium (3.5-5.0) mmol/L Chloride (101-111) mmol/L Carbon Dioxide (21-32) mmol/L Anion Gap (6-13) BUN (6-20) mg/dL Creatinine (0.6-1.2) mg/dL Estimated GFR (MDRD) (>89) Glucose (70-100) mg/dL Calcium (8.5-10.3) mg/dL Iron (45-182) ug/dL TIBC (250-450) ug/dL % Saturation (20-50) % Transferrin (180-329) mg/dL Total Bilirubin (0.2-1.0) mg/dL AST (10-42) IU/L ALT (10-60) IU/L Alkaline Phosphatase (42-121) IU/L Troponin I High Sens (2.3-19.7) ng/L Total Protein (6.7-8.2) g/dL Albumin (3.2-5.5) g/dL Globulin (2.1-4.2) g/dL Albumin/Globulin Ratio (1.0-2.2) Lipase (22-51) U/L Blood Type O POSITIVE Antibody Screen NEGATIVE Crossmatch IS Only See Detail 12/23/22 12/23/22 12/23/22 Range/Units 10:13 10:13 10:13 WBC (4.8-10.8) x10^3/uL RBC (4.70-6.10) 10^6/uL Hgb (14.0-18.0) g/dL Hct (42.0-52.0) % MCV (80.0-94.0) fL MCH (27.0-31.0) pg MCHC (32.0-36.0) g/dL RDW (12.0-15.0) % Plt Count (130-450) 10^3/uL MPV (7.4-11.4) fL Neut # (Auto) (1.5-6.6) 10^3/uL Lymph # (Auto) (1.5-3.5) 10^3/uL [place] # (Auto) (0.0-1.0) 10^3/uL Eos # (Auto) (0.0-0.7) 10^3/uL Baso # (Auto) (0.0-0.1) 10^3/uL Absolute Nucleated RBC x10^3/uL Nucleated RBC % /100WBC Manual Slide Review WBC Morphology (NORMAL) Platelet Estimate (NORMAL) Platelet Morphology (NORMAL) RBC Morph Micro Appear (NORMAL) PT 12.3 (9.9-12.6) secs INR 1.1 (0.8-1.2) APTT 21.7 L (24.9-33.3) secs Sodium 136 (135-145) mmol/L Potassium 3.7 (3.5-5.0) mmol/L Chloride 106 (101-111) mmol/L Carbon Dioxide 19 L (21-32) mmol/L Anion Gap 11.0 (6-13) BUN 18 (6-20) mg/dL Creatinine 0.6 (0.6-1.2) mg/dL Estimated GFR (MDRD) 141 (>89) Glucose 105 H (70-100) mg/dL Calcium 8.8 (8.5-10.3) mg/dL Iron 8 L (45-182) ug/dL TIBC 489 H (250-450) ug/dL % Saturation 2 L (20-50) % Transferrin 349 H (180-329) mg/dL Total Bilirubin 0.7 (0.2-1.0) mg/dL AST 22 (10-42) IU/L ALT 11 (10-60) IU/L Alkaline Phosphatase 41 L (42-121) IU/L Troponin I High Sens 7.8 (2.3-19.7) ng/L Total Protein 6.8 (6.7-8.2) g/dL Albumin 3.7 (3.2-5.5) g/dL Globulin 3.1 (2.1-4.2) g/dL Albumin/Globulin Ratio 1.2 (1.0-2.2) Lipase 38 (22-51) U/L Blood Type Antibody Screen Crossmatch IS Only 12/23/22 Range/Units 10:13 WBC 6.4 (4.8-10.8) x10^3/uL RBC 1.86 L (4.70-6.10) 10^6/uL Hgb 4.1 L* (14.0-18.0) g/dL Hct 14.4 L* (42.0-52.0) % MCV 77.4 L (80.0-94.0) fL MCH 22.0 L (27.0-31.0) pg MCHC 28.5 L (32.0-36.0) g/dL RDW 21.2 H (12.0-15.0) % Plt Count 322 (130-450) 10^3/uL MPV 8.5 (7.4-11.4) fL Neut # (Auto) 4.6 (1.5-6.6) 10^3/uL Lymph # (Auto) 1.0 L (1.5-3.5) 10^3/uL [place] # (Auto) 0.6 (0.0-1.0) 10^3/uL Eos # (Auto) 0.1 (0.0-0.7) 10^3/uL Baso # (Auto) 0.1 (0.0-0.1) 10^3/uL Absolute Nucleated RBC 0.00 x10^3/uL Nucleated RBC % 0.0 /100WBC Manual Slide Review Indicated WBC Morphology NORMAL APPEARANCE (NORMAL) Platelet Estimate NORMAL (130-450,000) (NORMAL) Platelet Morphology NORMAL APPEARANCE (NORMAL) RBC Morph Micro Appear 3+ HYPOCHROMASIA (NORMAL) PT (9.9-12.6) secs INR (0.8-1.2) APTT (24.9-33.3) secs Sodium (135-145) mmol/L Potassium (3.5-5.0) mmol/L Chloride (101-111) mmol/L Carbon Dioxide (21-32) mmol/L Anion Gap (6-13) BUN (6-20) mg/dL Creatinine (0.6-1.2) mg/dL Estimated GFR (MDRD) (>89) Glucose (70-100) mg/dL Calcium (8.5-10.3) mg/dL Iron (45-182) ug/dL TIBC (250-450) ug/dL % Saturation (20-50) % Transferrin (180-329) mg/dL Total Bilirubin (0.2-1.0) mg/dL AST (10-42) IU/L ALT (10-60) IU/L Alkaline Phosphatase (42-121) IU/L Troponin I High Sens (2.3-19.7) ng/L Total Protein (6.7-8.2) g/dL Albumin (3.2-5.5) g/dL Globulin (2.1-4.2) g/dL Albumin/Globulin Ratio (1.0-2.2) Lipase (22-51) U/L Blood Type Antibody Screen Crossmatch IS Only Assessment/Plan - Problem List (1) Acute on chronic blood loss anemia Impression: plan egd. parq held and consent obtained
[2022-12-24] MEDS ORDERED: POTASSIUM CHLORIDE 20 MEQ TABLET PO SCH (09:00)
[2022-12-24] MEDS ORDERED: NON FORMULARY MED (Omeprazole [Omeprazole] 40 MG Capsule.Dr) PO SCH (09:00)
[2022-12-24] MEDS ORDERED: lisinopriL 20 MG TABLET PO SCH (09:00)
[2022-12-24] MEDS ORDERED: DULoxetine 30 MG CAPSULE PO SCH (09:00)
[2022-12-24] MEDS: TAMSULOSIN 0.4 MG CAPSULE PO SCH (09:38)
[2022-12-24] MEDS: NICOTINE 7 MG PATCH TOP SCH (09:38)
[2022-12-24] MEDS: SODIUM CHLORIDE FLUSH 0.9% 10 ML SYRINGE IVP SCH (09:38)
--- NOTE | 2022-12-24 10:04 | ANESTHESIA ---
Pre-Anesthesia VS, & Labs - Diagnosis GI bleed - Procedure EGD Vital Signs: Temp Pulse Resp BP Pulse Ox O2 Flow Rate 36.9 C 93 18 138/97 H 98 12/24/22 07:35 12/24/22 07:35 12/24/22 07:35 12/24/22 07:35 12/24/22 07:35 Height: 6 ft Weight (kg): 88.451 kg Body Mass Index: 26.4 BMI Classification: Overweight - NPO >8 hours - Lab Results Current Lab Results: Laboratory Tests 12/24/22 06:27: Hgb 8.0 L, Hct 25.4 L 12/23/22 23:32: Hgb 6.7 L*, Hct 21.6 L 12/23/22 10:13: Blood Type O POSITIVE, Antibody Screen NEGATIVE, Crossmatch IS Only See Detail 12/23/22 10:13: PT 12.3, INR 1.1, APTT 21.7 L 12/23/22 10:13: Troponin I High Sens 7.8 12/23/22 10:13: Sodium 136, Potassium 3.7, Chloride 106, Carbon Dioxide 19 L, Anion Gap 11.0, BUN 18, Creatinine 0.6, Estimated GFR (MDRD) 141, Glucose 105 H, Calcium 8.8, Iron 8 L, TIBC 489 H, % Saturation 2 L, Transferrin 349 H, Total Bilirubin 0.7, AST 22, ALT 11, Alkaline Phosphatase 41 L, Total Protein 6.8, Albumin 3.7, Globulin 3.1, Albumin/Globulin Ratio 1.2, Lipase 38 12/23/22 10:13: WBC 6.4, RBC 1.86 L, Hgb 4.1 L*, Hct 14.4 L*, MCV 77.4 L, MCH 2 2.0 L, MCHC 28.5 L, RDW 21.2 H, Plt Count 322, MPV 8.5, Neut # (Auto) 4.6, Lymph # (Auto) 1.0 L, [place] # (Auto) 0.6, Eos # (Auto) 0.1, Baso # (Auto) 0.1, Absolute Nucleated RBC 0.00, Nucleated RBC % 0.0, Manual Slide Review Indicated, WBC Morphology NORMAL APPEARANCE, Platelet Estimate NORMAL (130-450,000), Platelet Morphology NORMAL APPEARANCE, RBC Morph Micro Appear 3+ HYPOCHROMASIA Fish Bones: 12/24/22 06:27 12/23/22 10:13 Home Medications and Allergies Active Medications Albuterol (Albuterol Neb 2.5 Mg/3 Ml) 2.5 mg INH RTQ4H PRN PRN Reason: Wheezing Amitriptyline HCl (Amitriptyline 25 Mg Tablet) 25 mg PO QPM [facility] Last Admin: 12/23/22 21:15 Dose: 25 mg Duloxetine HCl (Duloxetine 30 Mg Capsule) 60 mg PO DAILY [facility] Last Admin: 12/24/22 09:38 Dose: 60 mg Sodium Chloride (Normal Saline 0.9%) 1,000 mls @ 85 mls/hr IV .[id number] [facility] Last Admin: 12/24/22 04:01 Dose: 85 mls/hr Lisinopril (Lisinopril 20 Mg Tablet) 20 mg PO DAILY [facility] Last Admin: 12/24/22 09:38 Dose: 20 mg Morphine Sulfate (Morphine 2 Mg/Ml Carpuject) 2 mg IVP Q2HR PRN PRN Reason: Pain 8 to 10 Nicotine (Nicotine 7 Mg Patch) 1 patch TOP DAILY [facility] Last Admin: 12/24/22 09:38 Dose: Not Given Ondansetron HCl (Ondansetron Odt 4 Mg Tablet) 4 mg TL Q6HR PRN PRN Reason: Nausea / Vomiting Ondansetron HCl (Ondansetron 4 Mg/2 Ml Vial) 4 mg IVP Q6HR PRN PRN Reason: Nausea / Vomiting Pantoprazole Sodium (Pantoprazole 40 Mg Vial) 40 mg IVP QDAC [facility] Last Admin: 12/24/22 06:35 Dose: 40 mg Potassium Chloride (Potassium Chloride 20 Meq Tablet) 20 meq PO DAILY [facility] Last Admin: 12/24/22 09:38 Dose: 20 meq Sodium Chloride (Sodium Chloride Flush 0.9% 10 Ml Syringe) 10 ml IVP PRN PRN PRN Reason: NEEDED PER PROVIDER ORDERS Last Admin: 12/23/22 21:55 Dose: 10 ml Sodium Chloride (Sodium Chloride Flush 0.9% 10 Ml Syringe) 10 ml IVP 0100,0900,1700 [facility] Last Admin: 12/24/22 09:38 Dose: Not Given Tamsulosin HCl (Tamsulosin 0.4 Mg Capsule) 0.4 mg PO DAILY [facility] Last Admin: 12/24/22 09:38 Dose: 0.4 mg Amitriptyline [Elavil] 25 - 50 mg PO QPM 10/26/20 Duloxetine HCl [Cymbalta] 60 mg ORAL DAILY 11/11/22 Potassium Chloride 20 meq PO DAILY 11/11/22 lisinopriL [Lisinopril] 20 mg PO DAILY 11/11/22 Allergies/Adverse Reactions: Allergies Allergy/AdvReac Type Severity Reaction Status Date / Time No Known Drug Allergies Allergy Verified 12/23/22 09:51 Anes History & Medical History - Anesthetic History Anesthesia Complications: reports: No previous complications - Medical History Cardiovascular: reports: Hypertension Pulmonary: reports: COPD (with chronic cough) Gastrointestinal: reports: GERD, GI bleed, Pancreatitis (2016) Urinary: reports: Retention (sciatica and DDD, declines PT and LESI), Kidney stones Neuro: reports: None Musculoskeletal: reports: Osteoarthritis, Chronic back pain Endocrine/Autoimmune: reports: None Blood Disorders: reports: Anemia Skin: reports: None Smoking Status: Current every day smoker Psychosocial: reports: Alcohol (daily) Other Past Medical History: Illiteracy, homeless, alcoholism, scabies - Surgical History General: reports: Colonoscopy Eyes Ears Nose Throat (EENT): reports: Rhinoplasty Exam General: Alert, Oriented x3 Dental: WNL, Poor dentition Mouth Opening: Greater than 4 Fingerbreadths Neck Mobility: Normal Mallampati classification: II Thyromental Distance: greater than 6 cm Respiratory: Lungs clear Cardiovascular: Regular rate Plan Anesthesia Type: Total IV Consent for Procedure(s) Verified and Reviewed: Yes Code Status: Attempt Resuscitation ASA classification: 3-Severe systemic disease Is this case an emergency?: No
[2022-12-24] MEDS ORDERED: PROPOFOL 200 MG/20 ML VIAL IVP ONE ×2 (10:10→10:18)
[2022-12-24] MEDS ORDERED: LIDOCAINE-MPF 2% 5 ML VIAL ONE (10:10)
[2022-12-24] MEDS ORDERED: LORazepam 2 MG/ML VIAL IVP PRN (10:15)
--- NOTE | 2022-12-24 10:41 | ANESTHESIA POST OP EVALUATION ---
Anesthesia Post Eval - Post Anesthesia Eval Vitals: Last Vital Signs Temp 36.9 C 12/24/22 07:35 Pulse 93 12/24/22 07:35 Resp 18 12/24/22 07:35 BP 138/97 H 12/24/22 07:35 Pulse Ox 98 12/24/22 07:35 O2 Flow Rate CV Function Including HR & BP: Stable Pain Control: Satisfactory Nausea & Vomiting: Negative Mental Status: Baseline Respiratory Status: Airway Patent Hydration Status: Satisfactory Anesthesia Complications: None
[2022-12-24] MEDS ORDERED: THIAMINE 100 MG TABLET PO SCH (11:00)
[2022-12-24] MEDS ORDERED: MULTIVITAMIN 10 ML, THIAMINE INJ 100 MG, MAGNESIUM SULFATE 2 GM, FOLIC ACID INJ 1 MG in... IV SCH ×5 (11:00)
[2022-12-24] MEDS ORDERED: PRENATAL VITAMIN TABLET PO SCH (11:00)
--- NOTE | 2022-12-24 11:00 | Discharge Plan ---
Discharge Plan Problem Reviewed?: Yes Disposition: Home, Self Care Condition: Stable Prescriptions: Tamsulosin [Flomax] 0.4 mg PO DAILY #30 cap Pedi Multivit No.205/Fluoride [Lsjue-Cfp-Pqfh 0.25 mg Tb Chew] 0.25 mg PO DAILY #30 ea Thiamine [Vitamin B-1] 100 mg PO DAILY #30 tab Diet: Regular Activity Restrictions: Activity as Tolerated Shower Restrictions: No Driving Restrictions: Yes (No driving when intoxicated from alcohol) Health Concerns: You were hospitalized to get a blood transfusion and get an upper endoscopy, since you were severely anemic and had tarry stool, which is a sign of bleeding in the intestines. The upper endoscopy found no source of bleeding in the stomach or first part of the intestine. That test cannot see the middle and lower intestines. You are being discharged home today with a new prescription ordered for you to take Iron, Thiamine and a multivitamin, to build up your blood. Also, stopping alcohol intake, which means beer, needs to be stopped or decreased. You need to see your Primary Care Provider to be referred to a Gastroenterology specialist to look at the other parts of your intestines to figure out where the bleeding is coming from. We have no Gastroenterology doctor here at our small hospital, so that evaluation could not be done while you were here. Plan of Treatment: As above. Care Goals: Improvement in symptoms and stabilization are the goals. Assessment: The patient understands the plan. Additional Instructions or Follow Up instructions: If you have new or worsening symptoms, call your Primary Care Provider for advice or come to the ER. No Smoking: If you smoke, Please STOP! Call for help. Follow-up with: ANTOINETTE GAYTAN, MSN, SR VICE PRESIDENT [Credentialed Staff Provider] -
[2022-12-24 11:08] VITALS: BP 124/88
--- NOTE | 2022-12-24 13:13 | DISCHARGE SUMMARY ---
Discharge Summary Admit Date: 12/23/22 Discharge Date: 12/24/22 Discharging Provider: Tia Ortega MD Primary Care Provider: Cari Casiano NP Condition at Discharge: Stable Discharge Disposition: 01 Home, Self Care - HPI History of Present Illness: He presented to the emergency room this morning via private vehicle from homeless senior living because has been short of breath for about 2 months. It is worse with ambulation and okay when he sitting down. He is exhausted, has no energy to do anything and when he tries to do anything his heart rate just hurts to raise. He has no cardiac or pulmonary history. No history of COPD or asthma. He denies chest pain and the palpitations are only with his heart racing. No edema, no orthopnea. The last time he felt this tired he was told that he had anemia and required a blood transfusion. He has a history of alcoholism and peptic ulcer disease. In October 2020 he was referred to general surgery for colonoscopy. At that time there is no melena, bright red blood per rectum it appears to be a screening colonoscopy. He underw ent a colonoscopy in November 10, 2020 and there was moderate diverticulosis in the sigmoid bowel, ascending colon and sessile polyps found in the ascending colon, transverse colon and sigmoid colon. Ascending colon had a sessile adenoma negative for dysplasia and carcinoma. Transverse colon had a tubular adenoma negative for high-grade dysplasia and carcinoma. Sigmoid colon had a tubular adenoma negative for high-grade dysplasia and carcinoma. Hemoglobin done February 2021 was 14. The patient has chronic back pain and was seen by orthopedic surgery in April 2021. Pain had been increasing for 3 years especially since he works in [employer]. He uses alcohol of half a bottle of hard alcohol a day to control the pain. MRI has degenerative changes, and treatment consisted of PT, and epidural steroid injection. He was not a candidate for surgery. He has done PT in the past but it hurt so much he doesn't want to do it again. He was then referred to [facility] pain management in [place], seen there about 3 times. Physical therapy was again recommended since he is not a surgical candidate. They felt they were limited in giving him prescriptions because of his daily alcohol use. Gabapentin was considered and not given because of the alcohol. He was again considered for and left L5 transforaminal Binosto injection but only after CBC and platelets were done. That last visit was October 2021. In September 2022 he started reporting via phone calls to his primary care provider office that he was having blood when he went to the bathroom. He never showed up for his visits. He then went to the walk-in clinic November 11, 2022 complaining of severe dizziness and he felt like his heart was coming out of his chest. He was short of breath, tired, dizzy, dyspneic on exertion. With that visit he reported that he been sober for 5 years even though the previous month he was still telling people he was drinking half a pint a day. He was sent to the emergency room. CBC visit showed a hemoglobin of 6.2. CT pulmonary angiogram was done to make sure he was not having a PE and he had a patchy interstitial infiltrate, basal segments of the left lower lobe was new he shared with the ER provider that he was noticing black stools off and on. Stool was fecal occult blood negative that day. He received blood in the ER, and was star dorothy on antibiotics because of the patchy infiltrate on CT angiogram. He was seen in the clinic again on November 19, wanting a letter to be able to stay in the senior living. With that visit, the differential diagnosis for his symptoms including dizziness, benign positional vertigo, TIA, stroke, electrolyte imbalance, dehydration, trigeminal neuralgia, brain tumor, sinusitis. And they discussed transfusing him more but no further follow-up for the anemia and no transfusion ordered. No EGD or colonoscopy was discussed. He was then again seen in the clinic December 16 because of continued shortness of breath & cough. He did finish the antibiotics given to him previously. He had stopped taking his lisinopril because his blood pressure was so low. Hemoglobin with that visit was 7.7. The focus was on treating his community- acquired pneumonia and they refilled his albuterol and omeprazole, got a chest x-ray and started him on iron. No referral for EGD. He now returns to the emergency room today because he is very tired. Black tarry stools started last night. No abdominal pain. No fevers or chills. He states his appetite has been on and off. He does not think he has lost any weight. He has been having sweats at night for the last 6 or 7 months where he "soaks his close and he soaks his hat". He does not take any nonsteroidals. He drinks about 6-8 beers a week. He had his last 2 beers last night and they were 25 oz [place]. Temperature 36.9. Heart rate 118. Blood pressure 130/72. Respirations 32 any to 100% on room air. He is a disheveled bearded male, alert and oriented. Hemoglobin is 4.1, hematocrit 14.4. Platelets are 322. Iron is 8, TIBC is 489, transferrin is 349, troponin is 7.8. General surgery has been consulted. They agreed to see the patient for an EGD and want Hospitalist to admit the patient. As such I am placing him in observation for transfusion of blood, surgical consult, and EGD. - HOSPITAL COURSE Hospital Course: (1) Acute on chronic blood loss anemia Differential diagnosis included peptic ulcer disease, esophageal varices in an alcoholic, AVM, gastric ectasia, neoplasm. Although the patient said he stopped drinking and is sober, he told the ER doctor that he still drinks beer "because beer is not alcohol". He needed 4 U blood transfused. He was put on empiric Protonix IV. Dr Ken did an EGD that showed no abnormalities. He was discharged home on Iron and empiric Omeprazole. He needs referral to GI for further work-up, like with a colonoscopy and/or pill cam. (2) Chronic back pain He has been seen by the pain center 3 times in [place]. He needs to follow-up with them if he wants to get prescription medications, and will need to follow-up with regular PT to start therapy as an initial step. He really does not want to do the physical therapy. It was a nightmare that first few sessions he did 10 years ago. It gave him even worse back pain. He does not know if he will do that. He is also worried because we told him he cannot drink beer now. He does not know what he is going to do to control his back pain, he said. (3) Alcoholism He regards himself as a clean and sober ex-alcoholic for the last year and a half, says he no longer drinks "the hard stuff". He does not regard beer as alcohol. A bit of education was provided to the patient and we told him he really could not drink beer anymore, since alcohol is present in beer and we do consider his beer intake a problem. He was very sad that he cannot drink his beer anymore because he loves it. He was discharged home on a daily Thiamine. 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 Has not been able to work since and has been on disability. He used to have his own apartment, or lived with his mom. With dad dying 5 months ago, mom moved back to her home state of [place]. He cannot live with his mom because he just does not want to move that far away from here. He cannot live with his sister because she has a very small place and he does not really want to have to pay the rent. So right now he sleeps at the senior living at night. Spends his days at the [employer] caf. Hanging out with some marine friends and smokes weed. He is on a list for subsidized housing. He lives off his disability. (5) Tobacco abuse Here he was on a nicotine patch of 7 mg a day (6) Urinary retention We suspect that he has prostatism from benign prostatic hypertrophy. On top of that, he takes Elavil at night which is an anticholinergic and will make this worse. Will ask primary care provider to tease out whether stopping Elavil is all they need to do. We started him on Flomax an sent him home with a new prescription. - ALLERGIES Allergies/Adverse Reactions: Allergies Allergy/AdvReac Type Severity Reaction Status Date / Time No Known Drug Allergies Allergy Verified 12/23/22 09:51 - MEDICATIONS Home Medications: Ambulatory Orders Medication Instructions Recorded Confirmed Amitriptyline [Elavil] 25 - 50 mg PO QPM 10/26/20 12/23/22 Duloxetine HCl [Cymbalta] 60 mg ORAL DAILY 11/11/22 12/23/22 Omeprazole 40 mg PO DAILY #30 cap 11/11/22 12/23/22 lisinopriL [Lisinopril] 20 mg PO DAILY 11/11/22 12/23/22 Pedi Multivit No.205/Fluoride 0.25 mg PO DAILY #30 ea 12/24/22 [Oroxo-Alu-Ccwe 0.25 mg Tb Chew] Tamsulosin [Flomax] 0.4 mg PO DAILY #30 cap 12/24/22 Thiamine [Vitamin B-1] 100 mg PO DAILY #30 tab 12/24/22 - PHYSICAL EXAM AT DISCHARGE General Appearance: positive: No acute distress, Other (Disheveled, appears older than his stated age.) Eyes Bilateral: positive: Normal inspection, EOMI ENT: positive: ENT inspection nml, No signs of dehydration Neck: positive: Nml inspection, No JVD Respiratory: positive: No respiratory distress, Breath sounds nml Cardiovascular: positive: Regular rate & rhythm, No murmur Abdomen: positive: Non-tender, Nml bowel sounds, No distention Skin: positive: Warm, Dry, Pallor Extremities: positive: Non-tender, No pedal edema Neurologic/Psychiatric: positive: Oriented x3, Motor nml, Other (No tremor, no asterixis) - LABS Result Diagrams: 12/24/22 06:27 12/23/22 10:13 - DIAGNOSTIC IMAGING Diagnostic Imaging Results: Final report reviewed - FOLLOW UP Follow Up: See PCP Cari Casiano NP, in the next 1 to 2 weeks. He needs referral to GI. - TIME SPENT Time Spent in Discharge (Minutes): 45
--- NOTE | 2022-12-24 15:14 | OPERATIVE REPORT ---
Operative Report - General Admit Date: 12/23/22 Procedure Date: 12/24/22 Planned Procedure: egd Pre-Op Diagnosis: anemia Procedure Performed: egd Post Op Diagnosis: normal upper endoscopy. no ulcer, cancer, significant inflammation, blood, - Procedure Note Primary Surgeon: jeanette Anesthesia Technique: MAC Pathology: antrum rule out h pylori Estimated Blood Loss (mL): 0 Indications: anemia and history recent colonoscopy. no bloody bms Findings: normal upper endoscopy Complications: none
== END 2022-12-24 14:15 | disposition home or self-care (01) ==
LOC: ED 09:40 → MS2 11:31
PROVIDERS: ADMIT Specialist; ATTEND Internal Medicine
PROC: 0DB98ZX Excision of Duodenum, Via Natural or Artificial Opening Endoscopic, Diagnostic (ICD-10-PCS; principal; 2022-12-24 10:00)
DX: D62 Acute posthemorrhagic anemia (principal); I10 Essential (primary) hypertension; M54.42 Lumbago with sciatica, left side; G89.29 Other chronic pain; J44.9 Chronic obstructive pulmonary disease, unspecified; F17.210 Nicotine dependence, cigarettes, uncomplicated; Z59.01 Sheltered homelessness; R33.9 Retention of urine, unspecified; F10.20 Alcohol dependence, uncomplicated; Z86.010 Personal history of colon polyps
CPT/HCPCS: 36415; 43239; 71045; 80053; 83540; 83690; 84466; 84484; 85014; 85018; 85025; 85610; 85730; 86850; 86900; 86901; 86920; 93005; 96361; 96374; 99284; 99285; A9270; G0378; P9016

== ENCOUNTER 2023-01-31 09:58 | Outpatient (CLI) | payer MEDICAID | END 2023-01-31 23:59 | disposition critical access hospital (66) | LOC: EMS 09:58 | DX: R55 Syncope and collapse (principal); R53.1 Weakness; F10.129 Alcohol abuse with intoxication, unspecified | CPT/HCPCS: A0425; A0429; A0999 ==

== ENCOUNTER 2023-01-31 10:18 | Emergency (ER) | payer MEDICAID ==
[2023-01-31 10:31] VITALS: BP 102/72
--- NOTE | 2023-01-31 10:58 | ED Physician Documentation ---
History of Present Illness - Stated complaint Stated Complaint: ETOH/SYNCOPE - Chief complaint Chief Complaint: Neuro - History obtained from History obtained from: Patient, EMS - Additonal information Additional information: The patient is brought to the emergency department by EMS for chief complaint of syncopal episode at a bus stop. The patient has been drinking this afternoon and became intoxicated. Bystanders noticed at the bus stop that he leaned back and seem to either pass out or go to sleep. The medics were summoned and brought the patient here. The patient is adamant that he has no complaints whatsoever. He knows he has been drinking but he states he drinks every day and this feels normal for him. He denies any chest pain or shortness of breath. No neck pain. He did not hit his head or lose consciousness. He states he was really just semiconscious from Being drunk. PD PAST MEDICAL HISTORY - Past Medical History Cardiovascular: Hypertension Respiratory: COPD (with chronic cough) Neuro: None Endocrine/Autoimmune: None GI: GERD, GI bleed, Pancreatitis (2016) : Retention (sciatica and DDD, declines PT and LESI), Kidney stones HEENT: Other (hx of otitis) Psych: Depression, Other Musculoskeletal: Osteoarthritis, Chronic back pain Derm: None - Past Surgical History Past Surgical History: Yes General: Colonoscopy HEENT: Rhinoplasty - Present Medications Home Medications: Ambulatory Orders Medication Instructions Recorded Confirmed Amitriptyline [Elavil] 25 - 50 mg PO QPM 10/26/20 12/23/22 Duloxetine HCl [Cymbalta] 60 mg ORAL DAILY 11/11/22 12/23/22 Omeprazole 40 mg PO DAILY #30 cap 11/11/22 12/23/22 lisinopriL [Lisinopril] 20 mg PO DAILY 11/11/22 12/23/22 Pedi Multivit No.205/Fluoride 0.25 mg PO DAILY #30 ea 12/24/22 [Akedr-Vbm-Ojyw 0.25 mg Tb Chew] Tamsulosin [Flomax] 0.4 mg PO DAILY #30 cap 12/24/22 Thiamine [Vitamin B-1] 100 mg PO DAILY #30 tab 12/24/22 - Allergies Allergies/Adverse Reactions: Allergies Allergy/AdvReac Type Severity Reaction Status Date / Time No Known Drug Allergies Allergy Verified 01/31/23 10:54 - Social History Does the pt smoke?: Yes Smoking Status: Current every day smoker Does the pt drink ETOH?: Yes Does the pt have substance abuse?: Yes - Immunizations Immunizations are current?: No Immunizations: TDAP >10years/unknown - POLST Patient has POLST: No POLST Status: Full Code PD ED PE NORMAL - Vitals Vital signs reviewed: Yes - General General: Alert and oriented X 3, No acute distress, Well developed/nourished, Other (The patient smells of alcohol but does not appear clinically intoxicated.) - HEENT HEENT: Atraumatic, PERRL, EOMI, Moist mucous membranes - Neck Neck: Supple, no meningeal sign - Cardiac Cardiac: RRR, No murmur - Respiratory Respiratory: No respiratory distress, Clear bilaterally - Abdomen Abdomen: Soft, Non tender, Non distended - Derm Derm: Warm and dry - Extremities Extremities: No deformity - Neuro Neuro: Alert and oriented X 3, Other (Mildly slurred speech, but ambulates on a narrow-based gait) - Psych Psych: Normal mood, Normal affect Results - Vitals Vitals: Oxygen O2 Source Room air PD Medical Decision Making - ED course Complexity details: considered differential, d/w patient ED course: The patient was insistent that he wanted to leave and there is nothing wrong with him. He was very forthcoming about the fact that he drinks every day and this mental state is his usual. He states he does not feel overly intoxicated and does not want to be stuck here. The patient allowed me to examine him but he was alert and fully oriented and I could not hold him here against as well. I have discharged him home. Departure - Departure Disposition: 01 Home, Self Care Clinical Impression: Alcohol intoxication Qualifiers: Complication of substance-induced condition: uncomplicated Qualified Code(s): F10.920 - Alcohol use, unspecified with intoxication, uncomplicated Condition: Stable Instructions: ED Alcohol Intoxication Discharge Date/Time: 01/31/23 11:05
== END 2023-01-31 11:05 | disposition home or self-care (01) ==
LOC: ED 10:18
DX: F10.120 Alcohol abuse with intoxication, uncomplicated (principal); I10 Essential (primary) hypertension; J44.9 Chronic obstructive pulmonary disease, unspecified; F17.200 Nicotine dependence, unspecified, uncomplicated; Z79.899 Other long term (current) drug therapy
CPT/HCPCS: 99282; 99283

== ENCOUNTER 2023-02-05 08:15 | Outpatient (CLI) | payer MEDICAID ==
[2023-02-05 11:54] LABS: BASOPHILS # (AUTO) 0.1 10^3/uL (0.0-0.1); BASOPHILS % (AUTO) 1.8 %; EOSINOPHILS # (AUTO) 0.2 10^3/uL (0.0-0.7); EOSINOPHILS % (AUTO) 3.9 %; HCT - HEMATOCRIT 33.7 % (42.0-52.0); HGB - HEMOGLOBIN 10.1 g/dL (14.0-18.0); LYMPHOCYTES # (AUTO) 0.7 10^3/uL (1.5-3.5); LYMPHOCYTES % (AUTO) 14.4 %; MEAN CORPUSCULAR HEMOGLOBIN 24.2 pg (27.0-31.0); MEAN CORPUSCULAR VOLUME 80.6 fL (80.0-94.0); MEAN PLATELET VOLUME 10.5 fL (7.4-11.4); MONOCYTES # (AUTO) 0.6 10^3/uL (0.0-1.0); MONOCYTES % (AUTO) 13.1 %; NEUTROPHILS % (AUTO) 66.1 %; PLT - PLATELET COUNT 348 10^3/uL (130-450); RED BLOOD COUNT 4.18 10^6/uL (4.70-6.10); RED CELL DISTRIBUTION WIDTH 19.9 % (12.0-15.0); WHITE BLOOD COUNT 4.6 x10^3/uL (4.8-10.8)
[2023-02-05 11:59] LABS: SLIDE REVIEW? Indicated
[2023-02-05 12:01] LABS: PLATELET ESTIMATE, MANUAL NORMAL (130-450,000) (NORMAL); PLATELET MORPHOLOGY NORMAL APPEARANCE (NORMAL); RBC MORPHOLOGY (MULTIPLE) NORMAL APPEARANCE (NORMAL); WBC MORPHOLOGY (MULTIPLE) NORMAL APPEARANCE (NORMAL)
[2023-02-05 12:59] LABS: ALBUMIN 4.2 g/dL (3.2-5.5); ALBUMIN/GLOBULIN RATIO 1.1 (1.0-2.2); BILIRUBIN,TOTAL 0.8 mg/dL (0.2-1.0); CALCIUM 8.9 mg/dL (8.5-10.3); CREATININE 0.6 mg/dL (0.6-1.2); POTASSIUM 3.7 mmol/L (3.5-5.0)
== END 2023-02-05 08:30 | disposition home or self-care (01) ==
LOC: LAB.N 08:15
PROVIDERS: ATTEND Family Medicine
DX: E87.1 Hypo-osmolality and hyponatremia (principal); R42 Dizziness and giddiness; D64.9 Anemia, unspecified
CPT/HCPCS: 36415; 80053; 83540; 84466; 85025

== ENCOUNTER 2023-03-26 20:56 | Outpatient (CLI) | payer MEDICAID | END 2023-03-26 20:57 | disposition EMS.NT | LOC: EMS 20:56 | DX: R42 Dizziness and giddiness (principal); R00.0 Tachycardia, unspecified; F10.90 Alcohol use, unspecified, uncomplicated ==

== ENCOUNTER 2023-05-11 19:44 | Outpatient (CLI) | payer MEDICAID | END 2023-05-11 19:45 | disposition critical access hospital (66) | LOC: EMS 19:44 | DX: R42 Dizziness and giddiness (principal) | CPT/HCPCS: A0425; A0429; A0999 ==

== ENCOUNTER 2023-05-11 20:02 | Emergency (ER) | payer MEDICAID ==
[2023-05-11 20:33] LABS: BASOPHILS # (AUTO) 0.2 10^3/uL (0.0-0.1); BASOPHILS % (AUTO) 2.8 %; EOSINOPHILS # (AUTO) 0.4 10^3/uL (0.0-0.7); EOSINOPHILS % (AUTO) 5.2 %; HCT - HEMATOCRIT 29.9 % (42.0-52.0); HGB - HEMOGLOBIN 9.1 g/dL (14.0-18.0); LYMPHOCYTES % (AUTO) 14.2 %; MEAN CORPUSCULAR HEMOGLOBIN 24.1 pg (27.0-31.0); MEAN CORPUSCULAR HGB CONC 30.4 g/dL (32.0-36.0); MEAN CORPUSCULAR VOLUME 79.1 fL (80.0-94.0); MEAN PLATELET VOLUME 9.2 fL (7.4-11.4); MONOCYTES # (AUTO) 0.8 10^3/uL (0.0-1.0); MONOCYTES % (AUTO) 12.2 %; NEUTROPHILS # (AUTO) 4.4 10^3/uL (1.5-6.6); NEUTROPHILS % (AUTO) 65.3 %; PLT - PLATELET COUNT 283 10^3/uL (130-450); RED BLOOD COUNT 3.78 10^6/uL (4.70-6.10); RED CELL DISTRIBUTION WIDTH 17.2 % (12.0-15.0); WHITE BLOOD COUNT 6.7 x10^3/uL (4.8-10.8)
[2023-05-11 20:35] LABS: BILIRUBIN,URINE NEGATIVE (NEGATIVE); CLARITY,URINE Y (CLEAR); GLUCOSE, URINE (UA) NEGATIVE (NEGATIVE); KETONES,URINE (UA) NEGATIVE (NEGATIVE); LEUKOCYTE ESTERASE, URINE NEGATIVE (NEGATIVE); NITRITE,URINE NEGATIVE (NEGATIVE); OCCULT BLOOD,URINE NEGATIVE (NEGATIVE); PROTEIN,URINE NEGATIVE (NEGATIVE); UROBILINOGEN,URINE 0.2 (NORMAL) E.U./dL (NORMAL)
[2023-05-11 20:43] LABS: ALBUMIN 4.3 g/dL (3.2-5.5); ALBUMIN/GLOBULIN RATIO 1.3 (1.0-2.2); CALCIUM 9.4 mg/dL (8.5-10.3); CREATININE 0.6 mg/dL (0.6-1.3); ETOH - ETHANOL 222.6 mg/dL; POTASSIUM 3.4 mmol/L (3.5-4.5); TOTAL PROTEIN 7.6 g/dL (6.4-8.9)
--- NOTE | 2023-05-11 21:12 | ED Physician Documentation ---
History of Present Illness - Stated complaint Stated Complaint: DIZZY - Chief complaint Chief Complaint: Neuro - History obtained from History obtained from: Patient, EMS - Additonal information Additional information: 52-year-old male with history of alcohol use disorder, homelessness, vertigo, anemia presents by EMS from his friend's house for dizziness. Patient states that he was attempting to sleep on a friend's couch when the friend told him he could not stay and had to leave. Patient stated that he did not feel well and instead told the friend to call EMS for evaluation. He states that while he was attempting to put on his jacket he fell and struck his head against the ground and may have lost consciousness. He states he feels like he has vertigo, which she has had in the past. He did not take his home meclizine however, because he states that when he drinks he skips his meclizine. Endorses drinking 2.5 beers today. Review of Systems Constitutional: denies: Fever, Chills : denies: Dysuria Skin: denies: Rash, Lesions Musculoskeletal: denies: Neck pain, Back pain, Joint pain Neurologic: reports: Head injury, Other (vertigo). denies: Generalized weakness, Focal weakness, Numbness PD PAST MEDICAL HISTORY - Past Medical History Past Medical History: Yes Cardiovascular: Hypertension Respiratory: COPD (with chronic cough) Neuro: None Endocrine/Autoimmune: None GI: GERD, GI bleed, Pancreatitis (2016) : Retention (sciatica and DDD, declines PT and LESI), Kidney stones HEENT: Other (hx of otitis) Psych: Depression, Other Musculoskeletal: Osteoarthritis, Chronic back pain Derm: None - Past Surgical History Past Surgical History: Yes General: Colonoscopy HEENT: Rhinoplasty - Present Medications Home Medications: Ambulatory Orders Medication Instructions Recorded Confirmed Amitriptyline [Elavil] 25 - 50 mg PO QPM 10/26/20 12/23/22 Duloxetine HCl [Cymbalta] 60 mg ORAL DAILY 11/11/22 12/23/22 Omeprazole 40 mg PO DAILY #30 cap 11/11/22 12/23/22 lisinopriL [Lisinopril] 20 mg PO DAILY 11/11/22 12/23/22 Pedi Multivit No.205/Fluoride 0.25 mg PO DAILY #30 ea 12/24/22 [Blkum-Dpo-Rsre 0.25 mg Tb Chew] Tamsulosin [Flomax] 0.4 mg PO DAILY #30 cap 12/24/22 Thiamine [Vitamin B-1] 100 mg PO DAILY #30 tab 12/24/22 - Allergies Allergies/Adverse Reactions: Allergies Allergy/AdvReac Type Severity Reaction Status Date / Time No Known Drug Allergies Allergy Verified 01/31/23 10:54 - Social History Does the pt smoke?: Yes Smoking Status: Current every day smoker Does the pt drink ETOH?: Yes Does the pt have substance abuse?: Yes - Immunizations Immunizations are current?: No Immunizations: TDAP >10years/unknown - POLST Patient has POLST: No POLST Status: Full Code PD ED PE NORMAL - Vitals Vital signs reviewed: Yes - General General: Alert and oriented X 3, No acute distress, Well developed/nourished - HEENT HEENT: Atraumatic, PERRL, EOMI - Neck Neck: Supple, no meningeal sign - Cardiac Cardiac: RRR, No murmur, Strong equal pulses - Respiratory Respiratory: No respiratory distress, Clear bilaterally - Abdomen Abdomen: Soft, Non tender, Non distended - Derm Derm: Normal color, Warm and dry, No rash - Extremities Extremities: No deformity, No tenderness to palpate, Normal ROM s pain, No edema - Neuro Neuro: Alert and oriented X 3, 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, No motor deficit, No sensory deficit, Normal speech, Other (Gait normal) - Psych Psych: Normal mood, Normal affect Results - Vitals Vitals: Vital Signs - 24 hr 05/11/23 05/11/23 20:10 22:19 Temperature 36.2 C L Heart Rate 92 100 Respiratory 18 18 Rate Blood Pressure 109/72 103/65 O2 Saturation 98 98 Oxygen O2 Source Room air - Labs Labs: Laboratory Tests 05/11/23 05/11/23 05/11/23 20:15 20:15 20:15 WBC 6.7 RBC 3.78 L Hgb 9.1 L Hct 29.9 L MCV 79.1 L MCH 24.1 L MCHC 30.4 L RDW 17.2 H Plt Count 283 MPV 9.2 Neut # (Auto) 4.4 Lymph # (Auto) 1.0 L [place] # (Auto) 0.8 Eos # (Auto) 0.4 Baso # (Auto) 0.2 H Absolute Nucleated RBC 0.00 Nucleated RBC % 0.0 Sodium 132 L Potassium 3.4 L Chloride 97 L Carbon Dioxide 22 Anion Gap 13.0 BUN 9 Creatinine 0.6 Estimated GFR (MDRD) 141 Glucose 87 Calcium 9.4 Total Bilirubin 1.0 AST 76 H ALT 56 Alkaline Phosphatase 56 Troponin I High Sens 6.2 Total Protein 7.6 Albumin 4.3 Globulin 3.3 Albumin/Globulin Ratio 1.3 Lipase 73 Urine Color Urine Clarity Urine pH Ur Specific [place] Urine Protein Urine Glucose (UA) Urine Ketones Urine Occult Blood Urine Nitrite Urine Bilirubin Urine Urobilinogen Ur Leukocyte Esterase Ur Microscopic Review Urine Culture Comments Ethyl Alcohol 222.6 05/11/23 20:20 WBC RBC Hgb Hct MCV MCH MCHC RDW Plt Count MPV Neut # (Auto) Lymph # (Auto) [place] # (Auto) Eos # (Auto) Baso # (Auto) Absolute Nucleated RBC Nucleated RBC % Sodium Potassium Chloride Carbon Dioxide Anion Gap BUN Creatinine Estimated GFR (MDRD) Glucose Calcium Total Bilirubin AST ALT Alkaline Phosphatase Troponin I High Sens Total Protein Albumin Globulin Albumin/Globulin Ratio Lipase Urine Color STRAW Urine Clarity Y Urine pH 6.0 Ur Specific [place] <=1.005 Urine Protein NEGATIVE Urine Glucose (UA) NEGATIVE Urine Ketones NEGATIVE Urine Occult Blood NEGATIVE Urine Nitrite NEGATIVE Urine Bilirubin NEGATIVE Urine Urobilinogen 0.2 (NORMAL) Ur Leukocyte Esterase NEGATIVE Ur Microscopic Review NOT INDICATED Urine Culture Comments NOT INDICATED Ethyl Alcohol PD Medical Decision Making - ED course Complexity details: reviewed old records, reviewed results, re-evaluated patient, considered differential, d/w patient ED course: Patient with multiple complaints, patient states that he was having an episode of vertigo and it worsened after his friend kicked him out of his house. Patient states "I am in bad shape", and reports various chronic medical conditions that he has. Endorses vertigo is similar to previous episodes, however did not take home meclizine because he has been drinking alcohol. Thiamine and folic acid ordered due to patient's history of alcohol abuse. Labs reviewed, patient has elevated alcohol level, no other acute abnormalities identified. Chronic anemia without significant change from patient's baseline. CT imaging, chest x-ray negative for acute findings. Patient ambulatory back and forth from restroom without assistance, no acute distress. No medical indication for admission at this time. Departure - Departure Disposition: Home, Self Care Clinical Impression: Vertigo, Alcohol intoxication Condition: Stable Instructions: ED Alcohol Intoxication, Meclizine Forms: PCP List Discharge Date/Time: 05/11/23 22:19
--- NOTE | 2023-05-11 21:29 | CT Report ---
PROCEDURE: HEAD WO INDICATIONS: GLF WITH HEAD TRAUMA TECHNIQUE: Noncontrast 4.5 mm thick angled axial sections acquired from the foramen magnum to the vertex. For r adiation dose reduction, the following was used: automated exposure control, adjustment of mA and/or kV according to patient size. COMPARISON: None. FINDINGS: Image quality: There is motion artifact limiting evaluation. CSF spaces: Basal cisterns are patent. No extra-axial fluid collections. Ventricles are normal in size and shape. Brain: No intracranial hemorrhage, mass, or mass effect. Marcelo-white matter interface appears preser thomas. Skull and face: Calvarium and visualized facial bones are intact, without suspicious lesions. Sinuses: Visualized sinuses and mastoids are clear. IMPRESSION: 1. No acute intracranial abnormality. Reviewed by: Christopher King MD on 05/11/2023 9:28 PM PDT Approved by: Christopher King MD on 05/11/2023 9:28 PM PDT Station ID: [id number]
[2023-05-11] MEDS ORDERED: THIAMINE 100 MG TABLET PO STA (21:42)
[2023-05-11] MEDS ORDERED: FOLIC ACID 1 MG TABLET PO SCH (22:00)
--- NOTE | 2023-05-11 22:06 | XRAY Report ---
PROCEDURE: Chest 1 View X-Ray INDICATIONS: CP TECHNIQUE: One view of the chest was acquired. COMPARISON: Chest x-ray 12/23/2022 FINDINGS: Surgical changes and devices: None. Lungs and pleura: No pleural effusions or pneumothorax. No acute consolidation. There is probably at electasis peripherally in the left lung base. Mediastinum: There is a moderate to large hiatal hernia. Heart size is normal. Bones and chest wall: No suspicious bony lesions. Overlying soft tissues appear unremarkable. IMPRESSION: No acute cardiopulmonary disease. Reviewed by: Christopher King MD on 05/11/2023 10:05 PM PDT Approved by: Christopher King MD on 05/11/2023 10:05 PM PDT Station ID: [id number]
[2023-05-11 22:20] VITALS: BP 103/65
== END 2023-05-11 22:19 | disposition home or self-care (01) ==
LOC: EDUNIT# → ED 20:02
DX: R42 Dizziness and giddiness (principal); F10.129 Alcohol abuse with intoxication, unspecified; Y90.7 Blood alcohol level of 200-239 mg/100 ml; F17.200 Nicotine dependence, unspecified, uncomplicated; Z59.00 Homelessness unspecified
CPT/HCPCS: 36415; 70450; 71045; 80053; 80320; 81003; 83690; 84484; 85025; 93005; 99283; A9270; 81001; 87086

== ENCOUNTER 2023-08-30 09:15 | Outpatient (CLI) | payer MEDICAID | END 2023-08-30 09:16 | disposition critical access hospital (66) | LOC: EMS 09:15 | DX: R07.89 Other chest pain (principal); M79.605 Pain in left leg; R26.2 Difficulty in walking, not elsewhere classified | CPT/HCPCS: A0425; A0427; A0999 ==

== ENCOUNTER 2023-08-30 09:32 | Emergency (ER) | payer MEDICAID ==
[2023-08-30 10:17] LABS: BASOPHILS # (AUTO) 0.1 10^3/uL (0.0-0.1); BASOPHILS % (AUTO) 0.3 %; EOSINOPHILS # (AUTO) 0.1 10^3/uL (0.0-0.7); EOSINOPHILS % (AUTO) 0.5 %; HCT - HEMATOCRIT 33.3 % (42.0-52.0); HGB - HEMOGLOBIN 9.7 g/dL (14.0-18.0); LYMPHOCYTES # (AUTO) 0.5 10^3/uL (1.5-3.5); LYMPHOCYTES % (AUTO) 3.2 %; MEAN CORPUSCULAR HEMOGLOBIN 24.2 pg (27.0-31.0); MEAN CORPUSCULAR HGB CONC 29.1 g/dL (32.0-36.0); MEAN PLATELET VOLUME 9.6 fL (7.4-11.4); MONOCYTES # (AUTO) 0.9 10^3/uL (0.0-1.0); NEUTROPHILS # (AUTO) 15.4 10^3/uL (1.5-6.6); NEUTROPHILS % (AUTO) 90.5 %; PLT - PLATELET COUNT 399 10^3/uL (130-450); RED BLOOD COUNT 4.01 10^6/uL (4.70-6.10); RED CELL DISTRIBUTION WIDTH 28.8 % (12.0-15.0); WHITE BLOOD COUNT 17.1 x10^3/uL (4.8-10.8)
[2023-08-30 10:32] LABS: ALBUMIN 4.2 g/dL (3.2-5.5); ALBUMIN/GLOBULIN RATIO 1.4 (1.0-2.2); BILIRUBIN,TOTAL 0.4 mg/dL (0.2-1.0); CALCIUM 9.3 mg/dL (8.5-10.3); CREATININE 0.6 mg/dL (0.6-1.3); POTASSIUM 3.7 mmol/L (3.5-4.5); TOTAL PROTEIN 7.3 g/dL (6.4-8.9)
[2023-08-30 10:34] LABS: TROPONIN I HIGH SENSITIVITY 4.7 ng/L (2.3-19.7)
[2023-08-30 10:46] LABS: PLATELET ESTIMATE, MANUAL NORMAL (130-450,000) (NORMAL); PLATELET MORPHOLOGY NORMAL APPEARANCE (NORMAL); SLIDE REVIEW? Indicated
[2023-08-30 10:49] LABS: WBC MORPHOLOGY (MULTIPLE) NORMAL APPEARANCE (NORMAL)
[2023-08-30] MEDS ORDERED: DEXAMETHASONE 10 MG/ML VIAL IVP STA (11:06)
[2023-08-30] MEDS ORDERED: SODIUM CHLORIDE 0.9% 1,000 ML IV STA (11:06)
[2023-08-30] MEDS ORDERED: KETOROLAC 30 MG/ML VIAL IVP STA (11:06)
--- NOTE | 2023-08-30 11:06 | ED Physician Documentation ---
PD HPI BACK PAIN - Stated complaint Stated Complaint: CHEST PX - Chief complaint Chief Complaint: Cardiac - History obtained from History obtained from: Patient - History of Present Illness Timing - onset: Today Timing - duration: Hours Timing - details: Abrupt onset, Still present Location: Lower, Left Quality: Spasm, Sharp, Similar to prior episodes Associated symptoms: No: Fever, Weakness, Numbness, Incontinent of urine, Unable to urinate, Hematuria, Incontinent of stool Improves with: Rest Worsened by: Movement, Lifting, Twisting Similar symptoms before: Diagnosis (sciatica) Recently seen: Not recently seen - Additional information Additional information: Yinka Middleton is a 51-year-old male who 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 This morning on awakening he has severe pain down his left leg and is unable to to use his left leg adequately. Secondary to pain on the left side. He has had similar symptoms previously never this bad. He is also complaining of the pain in his anterior chest. He has had the pain in his chest for 3 days. worse to take a deep breath or to p alpate. Review of Systems Constitutional: denies: Fever Eyes: denies: Decreased vision Ears: denies: Ear pain Nose: denies: Rhinorrhea / runny nose, Congestion Throat: denies: Sore throat Cardiac: reports: Chest pain / pressure. denies: Palpitations, Pedal edema, Calf pain Respiratory: denies: Dyspnea, Cough GI: denies: Abdominal Pain, Nausea, Vomiting, Constipation, Diarrhea : denies: Dysuria, Frequency Skin: denies: Rash Musculoskeletal: reports: Back pain, Extremity pain. denies: Neck pain, Extre mity swelling Neurologic: denies: Generalized weakness, Focal weakness, Numbness PD PAST MEDICAL HISTORY - Past Medical History Cardiovascular: Hypertension Respiratory: COPD Neuro: None Endocrine/Autoimmune: None GI: GERD, GI bleed, Pancreatitis : Retention, Kidney stones HEENT: Other Psych: Depression, Other Musculoskeletal: Osteoarthritis, Chronic back pain Derm: None - Past Surgical History Past Surgical History: Yes General: Colonoscopy HEENT: Rhinoplasty - Present Medications Home Medications: Ambulatory Orders Medication Instructions Recorded Confirmed Amitriptyline [Elavil] 25 - 50 mg PO QPM 10/26/20 12/23/22 Duloxetine HCl [Cymbalta] 60 mg ORAL DAILY 11/11/22 12/23/22 Omeprazole 40 mg PO DAILY #30 cap 11/11/22 12/23/22 lisinopriL [Lisinopril] 20 mg PO DAILY 11/11/22 12/23/22 Pedi Multivit No.228/Fluoride 0.25 mg PO DAILY #30 ea 12/24/22 [Rxayz-Ler-Cwes 0.25 mg Tb Chew] Tamsulosin [Flomax] 0.4 mg PO DAILY #30 cap 12/24/22 Thiamine [Vitamin B-1] 100 mg PO DAILY #30 tab 12/24/22 Cyclobenzaprine [Flexeril] 10 mg PO TID PRN #20 tablet 08/30/23 HYDROcod/ACETAM 5/325 [[place] 5/325] 1 - 2 tablet PO Q6H PRN #14 tablet 08/30/23 - Allergies Allergies/Adverse Reactions: Allergies Allergy/AdvReac Type Severity Reaction Status Date / Time No Known Drug Allergies Allergy Verified 01/31/23 10:54 - Social History Does the pt smoke?: Yes Smoking Status: Current every day smoker Does the pt drink ETOH?: Yes Does the pt have substance abuse?: Yes - Immunizations Immunizations are current?: No Immunizations: TDAP >10years/unknown - POLST Patient has POLST: No POLST Status: Full Code PD ED PE NORMAL - Vitals Vital signs reviewed: Yes (hpyertensive ) - General General: Alert and oriented X 3, No acute distress, Well developed/nourished - HEENT HEENT: Atraumatic, PERRL, EOMI - Neck Neck: Supple, no meningeal sign - Cardiac Cardiac: No murmur, Other (tachy to 100) - Respiratory Respiratory: No respiratory distress, Clear bilaterally, Other (chest wall is tender to palpation along the costosternal junction bilat and reproduces the pain the patient is experiencing ) - Abdomen Abdomen: Normal bowel sounds, Soft, Non tender, Non distended, No organomegaly - Back Back: No CVA TTP, No spinal TTP - Derm Derm: Normal color, Warm and dry, No rash - Extremities Extremities: No deformity, No edema - Neuro Neuro: Alert and oriented X 3, 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 Relevant findings are: Rate: Rate (enter#) (103) Ischemia: ST elevation c/w repol Compare to prior EKG: Changed from prior EKG (SPT 05-11-23 rate has increased) Computer interpretation: Agree with computer - Labs Labs: Laboratory Tests 08/30/23 08/30/23 09:44 09:44 WBC 17.1 H RBC 4.01 L Hgb 9.7 L Hct 33.3 L MCV 83.0 MCH 24.2 L MCHC 29.1 L RDW 28.8 H Plt Count 399 MPV 9.6 Neut # (Auto) 15.4 H Lymph # (Auto) 0.5 L [place] # (Auto) 0.9 Eos # (Auto) 0.1 Baso # (Auto) 0.1 Absolute Nucleated RBC 0.00 Nucleated RBC % 0.0 Manual Slide Review Indicated WBC Morphology NORMAL APPEARANCE Platelet Estimate NORMAL (130-450,000) Platelet Morphology NORMAL APPEARANCE RBC Morph Micro Appear 3+ MICROCYTOSIS Sodium 133 L Potassium 3.7 Chloride 103 Carbon Dioxide 23 Anion Gap 7.0 BUN 17 Creatinine 0.6 Estimated GFR (MDRD) 141 Glucose 116 H Calcium 9.3 Total Bilirubin 0.4 AST 13 ALT 8 L Alkaline Phosphatase 66 Troponin I High Sens 4.7 Total Protein 7.3 Albumin 4.2 Globulin 3.1 Albumin/Globulin Ratio 1.4 Lipase 31 - Rads (name of study) chest Relevant Findings:: Prelim report reviewed (Impression: No acute cardiopulmonary findings.), EMP independent interpretation of test Procedures - IVC sono (time) 1050 Bedside IVC sono: IVC measures (cm) (1.19), Dehydration (est 1+ liter deficit) PD Medical Decision Making - ED course Complexity details: reviewed results, re-evaluated patient, considered differential, d/w patient Reviewed Lab Results: We reviewed a complete blood count showing an elevated white blood cell count of 17.1 a depressed hemoglobin of 9.7 and a depressed hematocrit of 33.3 both of these values similar to what the patient has had in the past. He usually runs a normal WBC and today it is elevated similar to previous with no specific etiology. Platelet count is normal at 399,000 chemistries are unremarkable electrolytes are normal kidney and liver function normal high-sensitivity troponin normal. The patient presented with complaints of sciatica and these laboratory tests are not contributing to that diagnosis. The patient also presented with chest pain and these laboratory values are helpful in ruling out an acute coronary syndrome. ED course: 52-year-old male with a history of sciatica has severe symptoms today after a lot of walking yesterday. He also has some pain in his chest which has had for 3 days. He does have chest wall tenderness that reproduces the pain he is having in his chest. Today we did our dual diligence and made certain his chest pain was not related to his heart. We found a normal looking electrocardiogram and and normal troponin. Chest x-ray was without findings. On arrival the patient was complaining of symptoms of sciatica and this was treated with Toradol and dexamethasone. The patient had marked improvement he was given a liter of saline following that. At the conclusion of the treatment the patient felt well. Departure - Departure Disposition: 01 Home, Self Care Clinical Impression: Chest wall pain Sciatica Qualifiers: Laterality: left Qualified Code(s): M54.32 - Sciatica, left side Condition: Stable Instructions: ED Strain Chest Wall, ED Sciatica Follow-Up: [facility] [place] [Provider Group] Prescriptions: Cyclobenzaprine [Flexeril] 10 mg PO TID PRN #20 tablet PRN Reason: Spasms HYDROcod/ACETAM 5/325 [[place] 5/325] 1 - 2 tablet PO Q6H PRN #14 tablet PRN Reason: Pain Comments: Yinka, today looks like the pain you are having in your chest is chest wall pain. This usually is from the strain of your chest wall. The sciatica is likely from walking for too long and our expectations with treatment are improvement in your symptoms this week. Today we have given you a dose of dexamethasone which should continue to improve your symptoms over the next 12 hours. I have E scribed some pain medication a muscle relaxant for you to use as needed to the [facility] in [place]. Follow-up with your primary as needed. Discharge Date/Time: 08/30/23 13:20
--- NOTE | 2023-08-30 11:54 | XRAY Report ---
PROCEDURE: Chest 1 View X-Ray INDICATIONS: Chest pain TECHNIQUE: One view of the chest was acquired. COMPARISON: 05/11/2023 FINDINGS: Surgical changes and devices: None. Lungs and pleura: No pleural effusions or pneumothorax. Lungs are clear. Mediastinum: Mediastinal contours appear normal. Heart size is normal. Bones and chest wall: No suspicious bony lesions. Overlying soft tissues appear unremarkable. IMPRESSION: No acute cardiopulmonary findings Reviewed by: Dima Eaton MD on 08/30/2023 10:53 AM [facility] Approved by: Dima Eaton MD on 08/30/2023 10:53 AM [facility] Station ID: [id number]
[2023-08-30 12:45] VITALS: BP 124/81; O2SAT 97
== END 2023-08-30 13:20 | disposition home or self-care (01) ==
LOC: EDUNIT# → ED 09:32
DX: R07.89 Other chest pain (principal); M54.32 Sciatica, left side; I10 Essential (primary) hypertension; F17.200 Nicotine dependence, unspecified, uncomplicated
CPT/HCPCS: 36415; 80053; 83690; 84484; 85025; 93005; 96374; 99284

== ENCOUNTER 2024-01-12 07:14 | Outpatient (CLI) | payer MEDICAID ==
--- NOTE | 2024-01-12 14:55 | Ultrasound Report ---
PROCEDURE: Abdomen Limited INDICATIONS: CIRRHOSIS TECHNIQUE: Real-time focused scanning was performed of the abdomen, with image documentation. COMPARISONS: CT abdomen pelvis without contrast on August 26, 2022. FINDINGS: Liver: Liver is normal in size and homogeneous in echotexture. Liver parenchyma is coarse and diffu sely echogenic. Main portal vein is patent with hepatopedal flow. Gallbladder: Unremarkable. Biliary ducts: Intrahepatic bile ducts are non-dilated. Extrahepatic bile duct caliber measures 4.2 mm. Normal is 6-7 mm or less in diameter, or 10 mm or less post-cholecystectomy. Pancreas: Visualized portions of the pancreas are sonographically normal. Of note, the body and tail are not well seen secondary to bowel gas. Right kidney: Normal in size and echotexture. Right kidney measures 12.1 cm long. No hydronephrosis or nephrolithiasis. No solid masses. No complex renal cystic lesions which require follow-up. IMPRESSION: Liver parenchyma is coarse and diffusely echogenic which may be seen in the setting of parenchymal di sease such as steatosis/cirrhosis. Reviewed by: Sarahi Peña MD on 01/12/2024 2:54 PM PDT Approved by: Sarahi Peña MD on 01/12/2024 2:54 PM PDT Station ID: [id number]
== END 2024-01-12 07:15 | disposition home or self-care (01) ==
LOC: DI 07:14
PROVIDERS: ATTEND Family Medicine
DX: K70.30 Alcoholic cirrhosis of liver without ascites (principal)

== ENCOUNTER 2024-01-28 09:07 | Outpatient (CLI) | payer MEDICAID ==
[2024-01-28] MEDS: ALBUTEROL 1 PUFF INH STA (10:14)
== END 2024-01-28 09:08 | disposition home or self-care (01) ==
LOC: RT 09:07
PROVIDERS: ATTEND Family Medicine
DX: J44.1 Chronic obstructive pulmonary disease with (acute) exacerbation (principal)
CPT/HCPCS: 94060; 94729

== ENCOUNTER 2024-03-24 08:54 | Outpatient (CLI) | payer OTHER, MEDICAID ==
--- NOTE | 2024-03-24 12:22 | XRAY Report ---
PROCEDURE: Lumbar Spine 2-3V INDICATIONS: LUMBAR PAIN TECHNIQUE: 3 views of the lumbar spine were acquired. COMPARISON: 07/26/2022 FINDINGS: Surgical change: None. Bones: 5 [id number] vertebrae are present. There is normal bony alignment. No vertebral body co mpression fractures. No suspicious bony lesions. Multiple endplate osteophytes and diffuse, mild dis c height loss. Facet arthrosis of L4-S1. Soft tissues: Overlying bowel gas pattern is normal. No suspicious soft tissue calcifications. IMPRESSION: Mild multilevel degenerative disc disease and lower lumbar facet arthrosis. Reviewed by: Jeffery Carlson MD on 03/24/2024 12:21 PM PDT Approved by: Jeffery Carlson MD on 03/24/2024 12:21 PM PDT Station ID: [id number]
--- NOTE | 2024-03-24 12:23 | XRAY Report ---
PROCEDURE: Knee 2V LT INDICATIONS: KNEE PAIN TECHNIQUE: 2 views of the knee(s) were acquired. COMPARISON: None. FINDINGS: Bones: No fractures or dislocations. No suspicious bony lesions. Tricompartmental joint without sig nificant osteophytosis. Soft tissues: No knee joint effusion. No suspicious soft tissue calcifications or masses. IMPRESSION: No acute bony abnormality. Mild tricompartmental osteoarthritis. Reviewed by: Jeffery Carlson MD on 03/24/2024 12:21 PM PDT Approved by: Jeffery Carlson MD on 03/24/2024 12:21 PM PDT Station ID: [id number]
== END 2024-03-24 08:55 | disposition home or self-care (01) ==
LOC: DI 08:54
PROVIDERS: ATTEND Internal Medicine Cardiovascular Disease
DX: M47.816 Spondylosis without myelopathy or radiculopathy, lumbar region (principal); M47.817 Spondylosis without myelopathy or radiculopathy, lumbosacral region; M51.36 Other intervertebral disc degeneration, lumbar region; M51.37 Other intervertebral disc degeneration, lumbosacral region; M17.12 Unilateral primary osteoarthritis, left knee

== ENCOUNTER 2024-07-17 08:38 | Outpatient (CLI) | payer OTHER, MEDICAID ==
[2024-07-17 09:11] LABS: BASOPHILS # (AUTO) 0.1 10^3/uL (0.0-0.1); BASOPHILS % (AUTO) 1.4 %; EOSINOPHILS # (AUTO) 0.3 10^3/uL (0.0-0.7); EOSINOPHILS % (AUTO) 5.2 %; HCT - HEMATOCRIT 26.7 % (42.0-52.0); HGB - HEMOGLOBIN 7.1 g/dL (14.0-18.0); LYMPHOCYTES # (AUTO) 0.7 10^3/uL (1.5-3.5); LYMPHOCYTES % (AUTO) 13.8 %; MEAN CORPUSCULAR HEMOGLOBIN 19.1 pg (27.0-31.0); MEAN CORPUSCULAR HGB CONC 26.6 g/dL (32.0-36.0); MEAN CORPUSCULAR VOLUME 71.8 fL (80.0-94.0); MONOCYTES # (AUTO) 0.5 10^3/uL (0.0-1.0); MONOCYTES % (AUTO) 9.6 %; NEUTROPHILS # (AUTO) 3.5 10^3/uL (1.5-6.6); NEUTROPHILS % (AUTO) 69.8 %; PLT - PLATELET COUNT 280 10^3/uL (130-450); RED BLOOD COUNT 3.72 10^6/uL (4.70-6.10); RED CELL DISTRIBUTION WIDTH 20.7 % (12.0-15.0)
[2024-07-17 09:27] LABS: ALBUMIN 4.5 g/dL (3.2-5.5); ALBUMIN/GLOBULIN RATIO 1.3 (1.0-2.2); BILIRUBIN,TOTAL 1.1 mg/dL (0.2-1.0); CALCIUM 9.4 mg/dL (8.5-10.3); CREATININE 0.7 mg/dL (0.6-1.3); POTASSIUM 3.7 mmol/L (3.5-4.5); TOTAL PROTEIN 7.9 g/dL (6.4-8.9)
[2024-07-17 09:47] LABS: FERRITIN 2.5 ng/mL (23.9-336.2)
== END 2024-07-17 08:39 | disposition home or self-care (01) ==
LOC: LAB 08:38
PROVIDERS: ATTEND Nurse Practitioner Family
DX: R42 Dizziness and giddiness (principal); R00.0 Tachycardia, unspecified; R53.83 Other fatigue; D64.9 Anemia, unspecified; R06.02 Shortness of breath
CPT/HCPCS: 36415; 80053; 82607; 82728; 82746; 83540; 84466; 85025